=== PATIENT | female | born 1965 ===

== ENCOUNTER 2017-06-17 08:50 | Inpatient (IN) ==
[2017-06-17] MEDS ORDERED: ONDANSETRON 4 MG/2 ML VIAL IV STA (09:17)
[2017-06-17] MEDS ORDERED: METOCLOPRAMIDE 10 MG/2 ML VIAL IV STA (09:17)
[2017-06-17 09:28] LABS: Basophils % 0.4 % (0.0-0.8); Eosinophils # 0.3 10*3/uL (0.0-0.87); Eosinophils % 2.4 % (0.00-10.9); Hematocrit 31.3 VOL% (35.7-47.0); Hemoglobin 10.6 GM/DL (12.0-16.0); Immature Granulocytes % 1.2 %; Immature Granulocytes Absolute 0.13 #; Lymphocytes # 0.8 10*3/uL (1.4-4.0); Lymphocytes % 7.2 % (21.3-54.2); Mean Corpuscular HGB Conc 33.9 GM/DL (32-36); Mean Corpuscular Hemoglobin 33 PG (27-34); Mean Corpuscular Volume 96.9 FL (87-102); Mean Platelet Volume 9.9 FL (9.6-12.0); Monocytes # 0.4 10*3/uL (0.11-0.8); Monocytes % 4.2 % (1.7-12.7); Neutrophils # 8.8 10*3/uL (1.4-7.4); Neutrophils % 84.6 % (38.7-73.9); Platelet Count 124 T/CUMM (130-400); Red Blood Count 3.23 MC/CUMM (3.8-5.5); Red Cell Distribution Width 14.6 % (9.3-17.3); White Blood Count 10.5 T/CUMM (4-12)
[2017-06-17 09:49] LABS: Lactic Acid 1.7 MMOL/L (0.4-2.0)
[2017-06-17 09:51] LABS: Albumin 3.1 G/DL (3.4-5.0); Bilirubin,Total 0.9 MG/DL (0.2-1.0); CKMB % 1.6 %; Calcium 7.3 MG/DL (8.5-10.1); Potassium 2.7 MMOL/L (3.5-5.1); Total Protein 7.3 G/DL (6.4-8.3)
[2017-06-17 09:52] LABS: Troponin I Only 0.176 NG/ML (0.00-0.045)
[2017-06-17] MEDS ORDERED: METOCLOPRAMIDE 10 MG/2 ML VIAL ONE (10:04)
[2017-06-17] MEDS ORDERED: ONDANSETRON 4 MG/2 ML VIAL ONE (10:04)
[2017-06-17 10:38] LABS: Apearance,Urine Slightly Hazy (Clear); Bacteria,Urine Occasional /HPF (Few); Bilirubin,Urine Negative (Negative); Blood, Urine Small mg/dL (Negative); Glucose,Urine (UA) >=500 mg/dL (Negative); Ketones,Urine Negative (Negative); Nitrite,Urine Negative (Negative); Protein,Urine >=500 MG/DL; RBC,Urine 16 /HPF (0-4); Squamous Epithelial Cell,Urine Occasional /HPF (0-10); Urine Color Yellow (Yellow); Urine Specific Gravity 1.013 (1.001-1.035); Urine Urobilinogen < 2.0 EU/DL (0.2-1.0); WBC,Urine 128 /HPF (0-6)
[2017-06-17] MEDS ORDERED: POTASSIUM BICARB EFFERVESCENT 25 MEQ TABLET PO ONE ×2 (10:39→12:04)
[2017-06-17] MEDS ORDERED: hydrALAZINE 20 MG/1 ML VIAL IV STA (12:12)
[2017-06-17] MEDS ORDERED: hydrALAZINE 20 MG/1 ML VIAL ONE (12:22)
[2017-06-17 13:09] LABS: Troponin I Only 0.164 NG/ML (0.00-0.045)
[2017-06-17] MEDS ORDERED: ALBUTEROL 2.5 MG/3 ML NEB RESP TX PRN (15:30)
[2017-06-17] MEDS ORDERED: ONDANSETRON 4 MG/2 ML VIAL IV PRN (15:30)
[2017-06-17] MEDS ORDERED: ACETAMINOPHEN 325 MG TABLET PO PRN (15:30)
[2017-06-17] MEDS: SODIUM CHLORIDE 0.9% 1,000 ML IV SCH (18:04)
[2017-06-17] MEDS: SEVELAMER CARBONATE 800 MG TABLET PO SCH ×2 (18:05→20:31)
[2017-06-17 18:08] LABS: Troponin I Only 0.161 NG/ML (0.00-0.045)
[2017-06-17] MEDS: CARVEDILOL 12.5 MG TABLET PO SCH (20:32)
[2017-06-18 05:53] LABS: Basophils % 0.4 % (0.0-0.8); Eosinophils # 0.2 10*3/uL (0.0-0.87); Eosinophils % 1.6 % (0.00-10.9); Hematocrit 27.2 VOL% (35.7-47.0); Hemoglobin 9.1 GM/DL (12.0-16.0); Immature Granulocytes % 1.4 %; Immature Granulocytes Absolute 0.13 #; Lymphocytes # 1.2 10*3/uL (1.4-4.0); Lymphocytes % 12.5 % (21.3-54.2); Mean Corpuscular HGB Conc 33.5 GM/DL (32-36); Mean Corpuscular Hemoglobin 33 PG (27-34); Mean Corpuscular Volume 97.8 FL (87-102); Mean Platelet Volume 10.1 FL (9.6-12.0); Monocytes # 0.6 10*3/uL (0.11-0.8); Monocytes % 6.5 % (1.7-12.7); Neutrophils # 7.4 10*3/uL (1.4-7.4); Neutrophils % 77.6 % (38.7-73.9); Platelet Count 112 T/CUMM (130-400); Red Blood Count 2.78 MC/CUMM (3.8-5.5); Red Cell Distribution Width 15.1 % (9.3-17.3); White Blood Count 9.6 T/CUMM (4-12)
[2017-06-18 06:42] LABS: Calcium 6.9 MG/DL (8.5-10.1); Free T4 (Free Thyroxine) 1.1 NG/DL (0.76-1.46); Osmolality,Calculated 293.4 MOS/KG (273-304); Potassium 3.1 MMOL/L (3.5-5.1); Risk Ratio 2.21; Thyroid Stimulating Hormone 0.692 uIU/ml (0.358-3.74); VLDL CHOLESTEROL 17.2 MG/DL
[2017-06-18] MEDS: CARVEDILOL 12.5 MG TABLET PO SCH ×2 (08:46→21:15)
[2017-06-18] MEDS: SEVELAMER CARBONATE 800 MG TABLET PO SCH ×5 (08:46→21:15)
[2017-06-18] MEDS: MONTELUKAST 10 MG TABLET PO SCH (08:46)
[2017-06-18] MEDS: POTASSIUM CHLORIDE 20 MEQ TABLET PO PRN ×4 (08:46→17:03)
[2017-06-18] MEDS: SODIUM CHLORIDE 0.9% 1,000 ML IV SCH (11:34)
[2017-06-18] MEDS ORDERED: VANCOMYCIN INJ 1,750 MG in SODIUM CHLORIDE 0.9% 500 ML IV PRN (14:30)
[2017-06-18] MEDS ORDERED: VANCOMYCIN INJ 1,750 MG in SODIUM CHLORIDE 0.9% 500 ML IV ONE (15:00)
[2017-06-19 07:01] LABS: Basophils % 0.4 % (0.0-0.8); Eosinophils # 0.2 10*3/uL (0.0-0.87); Eosinophils % 2.1 % (0.00-10.9); Immature Granulocytes % 1.8 %; Immature Granulocytes Absolute 0.17 #; Lymphocytes # 1.1 10*3/uL (1.4-4.0); Lymphocytes % 11.6 % (21.3-54.2); Mean Corpuscular HGB Conc 33.3 GM/DL (32-36); Mean Corpuscular Hemoglobin 33 PG (27-34); Mean Corpuscular Volume 98.5 FL (87-102); Mean Platelet Volume 10.2 FL (9.6-12.0); Monocytes # 0.6 10*3/uL (0.11-0.8); Monocytes % 6.6 % (1.7-12.7); NRBC # 0.02 10*3/uL; Neutrophils # 7.1 10*3/uL (1.4-7.4); Neutrophils % 77.5 % (38.7-73.9); Platelet Count 105 T/CUMM (130-400); Red Blood Count 2.74 MC/CUMM (3.8-5.5); Red Cell Distribution Width 14.8 % (9.3-17.3); White Blood Count 9.2 T/CUMM (4-12)
[2017-06-19] MEDS: SODIUM CHLORIDE 0.9% 1,000 ML IV SCH (07:17)
[2017-06-19] MEDS: CARVEDILOL 12.5 MG TABLET PO SCH ×2 (08:08→21:15)
[2017-06-19] MEDS: SEVELAMER CARBONATE 800 MG TABLET PO SCH ×4 (08:08→21:15)
[2017-06-19] MEDS: MONTELUKAST 10 MG TABLET PO SCH (08:08)
[2017-06-19] MEDS: POTASSIUM CHLORIDE 20 MEQ TABLET PO SCH (08:37)
[2017-06-19 08:42] LABS: Calcium 7.4 MG/DL (8.5-10.1); Osmolality,Calculated 288.7 MOS/KG (273-304)
[2017-06-19] MEDS: POLYETHYLENE GLYCOL POWDER 17 GM PACK PO SCH (17:07)
[2017-06-20] MEDS: CARVEDILOL 12.5 MG TABLET PO SCH ×2 (09:01→21:07)
[2017-06-20] MEDS: MONTELUKAST 10 MG TABLET PO SCH (09:07)
[2017-06-20] MEDS: SEVELAMER CARBONATE 800 MG TABLET PO SCH ×4 (09:09→21:07)
[2017-06-20] MEDS: POLYETHYLENE GLYCOL POWDER 17 GM PACK PO SCH (09:09)
[2017-06-20] MEDS: POTASSIUM CHLORIDE 20 MEQ TABLET PO SCH (09:09)
[2017-06-20] MEDS ORDERED: VANCOMYCIN INJ 1,750 MG in SODIUM CHLORIDE 0.9% 500 ML IV ONE (13:00)
[2017-06-21] MEDS: MONTELUKAST 10 MG TABLET PO SCH (09:22)
[2017-06-21] MEDS: SEVELAMER CARBONATE 800 MG TABLET PO SCH ×4 (09:22→22:16)
[2017-06-21] MEDS: CARVEDILOL 12.5 MG TABLET PO SCH ×2 (09:22→22:17)
[2017-06-21] MEDS: POTASSIUM CHLORIDE 20 MEQ TABLET PO SCH (09:22)
[2017-06-21] MEDS: POLYETHYLENE GLYCOL POWDER 17 GM PACK PO SCH (09:23)
[2017-06-21 10:47] LABS: Basophils # 0.1 10*3/uL (0.0-0.2); Basophils % 0.5 % (0.0-0.8); Eosinophils # 0.2 10*3/uL (0.0-0.87); Eosinophils % 2.1 % (0.00-10.9); Hematocrit 29.5 VOL% (35.7-47.0); Immature Granulocytes % 2.6 %; Immature Granulocytes Absolute 0.26 #; Lymphocytes % 10.5 % (21.3-54.2); Mean Corpuscular HGB Conc 33.9 GM/DL (32-36); Mean Corpuscular Hemoglobin 33 PG (27-34); Mean Corpuscular Volume 98.3 FL (87-102); Mean Platelet Volume 10.1 FL (9.6-12.0); Monocytes # 0.6 10*3/uL (0.11-0.8); NRBC # 0.02 10*3/uL; Neutrophils # 7.7 10*3/uL (1.4-7.4); Neutrophils % 78.3 % (38.7-73.9); Platelet Count 131 T/CUMM (130-400); Red Cell Distribution Width 14.6 % (9.3-17.3); White Blood Count 9.9 T/CUMM (4-12)
[2017-06-21 11:24] LABS: Albumin 2.7 G/DL (3.4-5.0); Calcium 7.7 MG/DL (8.5-10.1); Osmolality,Calculated 284.1 MOS/KG (273-304); Phosphorous 4.3 MG/DL (2.5-4.9); Potassium 4.2 MMOL/L (3.5-5.1)
[2017-06-22] MEDS: CARVEDILOL 12.5 MG TABLET PO SCH (08:11)
[2017-06-22] MEDS: POLYETHYLENE GLYCOL POWDER 17 GM PACK PO SCH (08:11)
[2017-06-22] MEDS: POTASSIUM CHLORIDE 20 MEQ TABLET PO SCH (08:11)
[2017-06-22] MEDS: SEVELAMER CARBONATE 800 MG TABLET PO SCH ×2 (08:11→14:06)
[2017-06-22] MEDS: MONTELUKAST 10 MG TABLET PO SCH (08:11)
[2017-06-22 11:51] VITALS: BP 153/81
== END 2017-06-22 14:09 | disposition home or self-care (01) | DRG 391 ==
LOC: EDBD → EDUNIT# → N.ED 08:50 → SUATTDRO 14:29 → N.EDINP 14:29 → N.5E 15:07
PROVIDERS: ADMIT Family Medicine; ATTEND Internal Medicine Cardiovascular Disease

== ENCOUNTER 2017-07-01 01:58 | Inpatient (IN) ==
[2017-07-01] MEDS ORDERED: ONDANSETRON 4 MG/2 ML VIAL IV PRN (04:36)
[2017-07-01 07:01] LABS: Basophils # 0.1 10*3/uL (0.0-0.2); Basophils % 0.6 % (0.0-0.8); Eosinophils # 0.3 10*3/uL (0.0-0.87); Eosinophils % 2.9 % (0.00-10.9); Hematocrit 28.4 VOL% (35.7-47.0); Hemoglobin 9.4 GM/DL (12.0-16.0); Immature Granulocytes % 0.9 %; Immature Granulocytes Absolute 0.08 #; Lymphocytes # 1.1 10*3/uL (1.4-4.0); Lymphocytes % 12.5 % (21.3-54.2); Mean Corpuscular HGB Conc 33.1 GM/DL (32-36); Mean Corpuscular Hemoglobin 33 PG (27-34); Mean Corpuscular Volume 100.4 FL (87-102); Mean Platelet Volume 10.1 FL (9.6-12.0); Monocytes # 0.5 10*3/uL (0.11-0.8); Monocytes % 6.2 % (1.7-12.7); Neutrophils # 6.7 10*3/uL (1.4-7.4); Neutrophils % 76.9 % (38.7-73.9); Platelet Count 113 T/CUMM (130-400); Red Blood Count 2.83 MC/CUMM (3.8-5.5); Red Cell Distribution Width 15.4 % (9.3-17.3); White Blood Count 8.7 T/CUMM (4-12)
[2017-07-01 07:23] LABS: Albumin 2.7 G/DL (3.4-5.0); Bilirubin,Total 0.9 MG/DL (0.2-1.0); Calcium 7.7 MG/DL (8.5-10.1); Osmolality,Calculated 304.7 MOS/KG (273-304); Potassium 3.9 MMOL/L (3.5-5.1); Total Protein 5.9 G/DL (6.4-8.3)
[2017-07-01] MEDS: HEPARIN 5,000 UNIT/1 ML VIAL SUBCUT SCH ×3 (09:52→21:04)
[2017-07-01] MEDS: CARVEDILOL 12.5 MG TABLET PO SCH ×2 (09:53→17:37)
[2017-07-01] MEDS: MONTELUKAST 10 MG TABLET PO SCH (09:53)
[2017-07-01] MEDS: SEVELAMER CARBONATE 800 MG TABLET PO SCH ×4 (09:53→20:48)
[2017-07-01] MEDS: PANTOPRAZOLE 40 MG TABLET PO SCH (09:53)
[2017-07-01 16:46] LABS: PT Patient Result 10.7 SECS; Partial Thromboplastin Time 27.6 SECS (0-40)
[2017-07-01 19:53] LABS: Apearance,Urine CLOUDY (Clear); Bacteria,Urine Moderate /HPF (Few); Bilirubin,Urine Negative (Negative); Blood, Urine Moderate mg/dL (Negative); Glucose,Urine (UA) >=500 mg/dL (Negative); Ketones,Urine Negative (Negative); Nitrite,Urine Negative (Negative); Protein,Urine >=500 MG/DL; RBC,Urine 107 /HPF (0-4); Squamous Epithelial Cell,Urine Many /HPF (0-10); Urine Color Amber (Yellow); Urine Specific Gravity 1.026 (1.001-1.035); Urine Urobilinogen < 2.0 EU/DL (0.2-1.0); WBC,Urine 61 /HPF (0-6)
[2017-07-02] MEDS ORDERED: VANCOMYCIN INJ 1,500 MG in SODIUM CHLORIDE 0.9% 500 ML IV PRN (03:59)
[2017-07-02] MEDS: HEPARIN 5,000 UNIT/1 ML VIAL SUBCUT SCH ×2 (05:20→14:25)
[2017-07-02 08:01] LABS: Basophils % 0.5 % (0.0-0.8); Eosinophils # 0.2 10*3/uL (0.0-0.87); Eosinophils % 3.2 % (0.00-10.9); Hematocrit 27.8 VOL% (35.7-47.0); Hemoglobin 9.3 GM/DL (12.0-16.0); Immature Granulocytes % 0.8 %; Immature Granulocytes Absolute 0.05 #; Lymphocytes # 1.1 10*3/uL (1.4-4.0); Lymphocytes % 16.8 % (21.3-54.2); Mean Corpuscular HGB Conc 33.5 GM/DL (32-36); Mean Corpuscular Hemoglobin 34 PG (27-34); Mean Corpuscular Volume 100.4 FL (87-102); Mean Platelet Volume 10.2 FL (9.6-12.0); Monocytes # 0.5 10*3/uL (0.11-0.8); Monocytes % 7.1 % (1.7-12.7); Neutrophils # 4.7 10*3/uL (1.4-7.4); Neutrophils % 71.6 % (38.7-73.9); Platelet Count 111 T/CUMM (130-400); Red Blood Count 2.77 MC/CUMM (3.8-5.5); Red Cell Distribution Width 15.2 % (9.3-17.3); White Blood Count 6.6 T/CUMM (4-12)
[2017-07-02 08:41] LABS: Calcium 7.8 MG/DL (8.5-10.1); Osmolality,Calculated 305.8 MOS/KG (273-304); Potassium 3.9 MMOL/L (3.5-5.1)
[2017-07-02] MEDS: CARVEDILOL 12.5 MG TABLET PO SCH (09:05)
[2017-07-02] MEDS: MONTELUKAST 10 MG TABLET PO SCH (09:05)
[2017-07-02] MEDS: PANTOPRAZOLE 40 MG TABLET PO SCH (09:05)
[2017-07-02] MEDS: SEVELAMER CARBONATE 800 MG TABLET PO SCH ×2 (09:05→12:11)
[2017-07-02 16:09] VITALS: BP 152/79
== END 2017-07-02 16:38 | disposition home or self-care (01) | DRG 919 ==
LOC: N.5E 04:07 → SUATTDRO 04:07
PROVIDERS: ADMIT Internal Medicine; ATTEND Internal Medicine

== ENCOUNTER 2018-06-26 17:04 | Inpatient (IN) ==
[2018-06-26] MEDS ORDERED: CEFEPIME 2,000 MG in SODIUM CHLORIDE 0.9% 100 ML IV STA (19:04)
[2018-06-26] MEDS ORDERED: VANCOMYCIN INJ 1,500 MG in SODIUM CHLORIDE 0.9% 250 ML IV STA (19:04)
[2018-06-26] MEDS ORDERED: INSULIN REGULAR 100 UNIT/ML IV STA (19:43)
[2018-06-26 20:21] LABS: Lactic Acid 1.1 MMOL/L (0.4-2.0)
[2018-06-26] MEDS ORDERED: GLUCAGON 1 MG VIAL IM PRN (20:43)
[2018-06-26] MEDS: INSULIN LISPRO 100 UNIT/ML SUBCUT SCH (22:12)
[2018-06-27 05:54] LABS: Basophils % 0.3 % (0.0-0.8); Eosinophils # 0.2 10*3/uL (0.0-0.87); Eosinophils % 1.6 % (0.00-10.9); Hemoglobin 10.4 GM/DL (12.0-16.0); Immature Granulocytes % 1.3 %; Immature Granulocytes Absolute 0.18 #; Lymphocytes # 1.5 10*3/uL (1.4-4.0); Mean Corpuscular HGB Conc 30.6 GM/DL (32-36); Mean Corpuscular Hemoglobin 31 PG (27-34); Mean Corpuscular Volume 101.5 FL (87-102); Mean Platelet Volume 10.3 FL (9.6-12.0); Neutrophils # 10.8 10*3/uL (1.4-7.4); Neutrophils % 78.8 % (38.7-73.9); Platelet Count 150 T/CUMM (130-400); Red Blood Count 3.35 MC/CUMM (3.8-5.5); Red Cell Distribution Width 14.2 % (9.3-17.3); White Blood Count 13.7 T/CUMM (4-12)
[2018-06-27 06:10] LABS: Calcium 7.8 MG/DL (8.5-10.1); Osmolality,Calculated 301.1 MOS/KG (273-304); Potassium 4.2 MMOL/L (3.5-5.1)
[2018-06-27 06:20] LABS: Folate 7.9 NG/ML (5.4-24.0)
[2018-06-27] MEDS: CARVEDILOL 6.25 MG TABLET PO SCH ×2 (08:30→16:43)
[2018-06-27] MEDS: CALCIUM ACETATE 667 MG CAPSULE PO SCH ×3 (08:30→16:43)
[2018-06-27] MEDS: INSULIN LISPRO 100 UNIT/ML SUBCUT SCH ×4 (08:31→20:14)
[2018-06-27] MEDS: CEFTAROLINE 200 MG in SODIUM CHLORIDE 0.9% 100 ML IV SCH ×3 (11:36→22:55)
[2018-06-27] MEDS: ALBUTEROL 2.5 MG/3 ML NEB RESP TX PRN ×2 (12:18→18:20)
[2018-06-28] MEDS: ALBUTEROL 2.5 MG/3 ML NEB RESP TX PRN (07:10)
[2018-06-28] MEDS: CALCIUM ACETATE 667 MG CAPSULE PO SCH ×4 (09:12→20:38)
[2018-06-28] MEDS: CARVEDILOL 6.25 MG TABLET PO SCH (09:12)
[2018-06-28] MEDS: INSULIN LISPRO 100 UNIT/ML SUBCUT SCH ×4 (09:13→20:43)
[2018-06-28] MEDS: CEFTAROLINE 200 MG in SODIUM CHLORIDE 0.9% 100 ML IV SCH ×2 (12:01→23:36)
[2018-06-28] MEDS: MULTIVITAMIN (BEROCCA) TABLET PO SCH (17:29)
[2018-06-28] MEDS: glipiZIDE 5 MG TABLET PO SCH (17:29)
[2018-06-28] MEDS: MONTELUKAST 10 MG TABLET PO SCH (17:29)
[2018-06-28] MEDS: CARVEDILOL 3.125 MG TABLET PO SCH ×2 (17:29→20:38)
[2018-06-28] MEDS: ACETAMINOPHEN 325 MG TABLET PO PRN (17:29)
[2018-06-28] MEDS: GENTAMICIN 0.1% CREAM 15 GM TUBE TOP SCH (17:30)
[2018-06-29] MEDS: glipiZIDE 5 MG TABLET PO SCH ×2 (06:42→17:07)
[2018-06-29] MEDS: DOCUSATE SODIUM 100 MG CAPSULE PO PRN (06:42)
[2018-06-29 08:01] LABS: Basophils # 0.1 10*3/uL (0.0-0.2); Basophils % 0.4 % (0.0-0.8); Eosinophils # 0.2 10*3/uL (0.0-0.87); Eosinophils % 1.6 % (0.00-10.9); Hematocrit 30.3 VOL% (35.7-47.0); Hemoglobin 9.7 GM/DL (12.0-16.0); Immature Granulocytes % 1.4 %; Immature Granulocytes Absolute 0.21 #; Lymphocytes # 0.9 10*3/uL (1.4-4.0); Lymphocytes % 6.2 % (21.3-54.2); Mean Corpuscular Hemoglobin 32 PG (27-34); Mean Platelet Volume 10.4 FL (9.6-12.0); Monocytes # 0.7 10*3/uL (0.11-0.8); Monocytes % 4.7 % (1.7-12.7); Neutrophils # 12.7 10*3/uL (1.4-7.4); Neutrophils % 85.7 % (38.7-73.9); Platelet Count 173 T/CUMM (130-400); Red Cell Distribution Width 14.1 % (9.3-17.3); White Blood Count 14.8 T/CUMM (4-12)
[2018-06-29 08:32] LABS: Calcium 8.8 MG/DL (8.5-10.1); Osmolality,Calculated 298.2 MOS/KG (273-304); Potassium 3.8 MMOL/L (3.5-5.1)
[2018-06-29] MEDS: MONTELUKAST 10 MG TABLET PO SCH (08:35)
[2018-06-29] MEDS: ACETAMINOPHEN 325 MG TABLET PO PRN (08:36)
[2018-06-29] MEDS: CALCIUM ACETATE 667 MG CAPSULE PO SCH ×4 (08:36→21:43)
[2018-06-29] MEDS: CARVEDILOL 3.125 MG TABLET PO SCH ×2 (08:36→21:45)
[2018-06-29] MEDS: INSULIN LISPRO 100 UNIT/ML SUBCUT SCH ×4 (08:36→21:45)
[2018-06-29] MEDS: MULTIVITAMIN (BEROCCA) TABLET PO SCH (08:36)
[2018-06-29] MEDS: GENTAMICIN 0.1% CREAM 15 GM TUBE TOP SCH (08:37)
[2018-06-29] MEDS: CLINDAMYCIN INJ 600 MG in PREMIX 1 EACH IV SCH ×2 (10:13→17:07)
[2018-06-29] MEDS: HEPARIN 5,000 UNIT/1 ML VIAL SUBCUT SCH ×2 (10:13→21:44)
[2018-06-29] MEDS: CEFTAROLINE 200 MG in SODIUM CHLORIDE 0.9% 100 ML IV SCH (12:45)
[2018-06-30] MEDS: CEFTAROLINE 200 MG in SODIUM CHLORIDE 0.9% 100 ML IV SCH ×3 (00:10→23:23)
[2018-06-30] MEDS: ONDANSETRON 4 MG/2 ML VIAL IV PRN ×2 (00:11→22:07)
[2018-06-30] MEDS: CLINDAMYCIN INJ 600 MG in PREMIX 1 EACH IV SCH ×3 (00:11→19:06)
[2018-06-30 06:22] LABS: Basophils # 0.1 10*3/uL (0.0-0.2); Basophils % 0.4 % (0.0-0.8); Eosinophils # 0.1 10*3/uL (0.0-0.87); Hematocrit 31.5 VOL% (35.7-47.0); Hemoglobin 9.8 GM/DL (12.0-16.0); Immature Granulocytes % 1.5 %; Immature Granulocytes Absolute 0.21 #; Lymphocytes % 7.1 % (21.3-54.2); Mean Corpuscular HGB Conc 31.1 GM/DL (32-36); Mean Corpuscular Hemoglobin 32 PG (27-34); Mean Corpuscular Volume 101.9 FL (87-102); Mean Platelet Volume 10.3 FL (9.6-12.0); Monocytes # 0.9 10*3/uL (0.11-0.8); Monocytes % 6.3 % (1.7-12.7); NRBC # 0.03 10*3/uL; Neutrophils # 11.8 10*3/uL (1.4-7.4); Neutrophils % 83.7 % (38.7-73.9); Platelet Count 188 T/CUMM (130-400); Red Blood Count 3.09 MC/CUMM (3.8-5.5); Red Cell Distribution Width 14.1 % (9.3-17.3)
[2018-06-30 06:40] LABS: Calcium 9.2 MG/DL (8.5-10.1); Osmolality,Calculated 289.2 MOS/KG (273-304); Potassium 3.9 MMOL/L (3.5-5.1)
[2018-06-30] MEDS: CARVEDILOL 3.125 MG TABLET PO SCH ×2 (08:37→20:26)
[2018-06-30] MEDS: MONTELUKAST 10 MG TABLET PO SCH (08:37)
[2018-06-30] MEDS: MULTIVITAMIN (BEROCCA) TABLET PO SCH (08:37)
[2018-06-30] MEDS: glipiZIDE 5 MG TABLET PO SCH ×2 (08:37→17:45)
[2018-06-30] MEDS: CALCIUM ACETATE 667 MG CAPSULE PO SCH ×4 (08:37→20:26)
[2018-06-30] MEDS: GENTAMICIN 0.1% CREAM 15 GM TUBE TOP SCH (08:39)
[2018-06-30] MEDS: INSULIN LISPRO 100 UNIT/ML SUBCUT SCH ×4 (08:39→20:54)
[2018-06-30] MEDS: HEPARIN 5,000 UNIT/1 ML VIAL SUBCUT SCH ×2 (12:17→22:09)
[2018-07-01] MEDS: DEXTROSE 50% 25 GM/50 ML VIAL IV PRN ×2 (00:44→15:15)
[2018-07-01] MEDS: CLINDAMYCIN INJ 600 MG in PREMIX 1 EACH IV SCH ×2 (01:07→08:16)
[2018-07-01 05:30] LABS: Basophils % 0.2 % (0.0-0.8); Eosinophils # 0.1 10*3/uL (0.0-0.87); Eosinophils % 0.6 % (0.00-10.9); Hematocrit 31.9 VOL% (35.7-47.0); Hemoglobin 9.6 GM/DL (12.0-16.0); Immature Granulocytes Absolute 0.27 #; Lymphocytes # 0.7 10*3/uL (1.4-4.0); Lymphocytes % 5.2 % (21.3-54.2); Mean Corpuscular HGB Conc 30.1 GM/DL (32-36); Mean Corpuscular Hemoglobin 31 PG (27-34); Mean Corpuscular Volume 102.9 FL (87-102); Mean Platelet Volume 10.3 FL (9.6-12.0); Monocytes # 0.8 10*3/uL (0.11-0.8); Monocytes % 6.1 % (1.7-12.7); NRBC # 0.07 10*3/uL; Neutrophils # 11.7 10*3/uL (1.4-7.4); Neutrophils % 85.9 % (38.7-73.9); Platelet Count 179 T/CUMM (130-400); Red Cell Distribution Width 14.3 % (9.3-17.3); White Blood Count 13.6 T/CUMM (4-12)
[2018-07-01] MEDS: ONDANSETRON 4 MG/2 ML VIAL IV PRN (05:34)
[2018-07-01] MEDS ORDERED: FAMOTIDINE 20 MG/2 ML VIAL IV ONE (09:51)
[2018-07-01] MEDS: ALBUTEROL 2.5 MG/3 ML NEB RESP TX PRN (13:00)
[2018-07-01] MEDS ORDERED: LIDOCAINE 1% 20 ML VIAL ONE (13:38)
[2018-07-01] MEDS ORDERED: DEXTROSE 50% 25 GM/50 ML VIAL IV ONE (14:05)
[2018-07-01] MEDS: glipiZIDE 5 MG TABLET PO SCH ×2 (14:06→17:47)
[2018-07-01] MEDS: CARVEDILOL 3.125 MG TABLET PO SCH ×2 (14:07→20:48)
[2018-07-01] MEDS: CALCIUM ACETATE 667 MG CAPSULE PO SCH ×3 (14:07→20:48)
[2018-07-01] MEDS: INSULIN LISPRO 100 UNIT/ML SUBCUT SCH ×3 (14:07→20:48)
[2018-07-01] MEDS: HEPARIN 5,000 UNIT/1 ML VIAL SUBCUT SCH ×2 (14:08→21:47)
[2018-07-01] MEDS ORDERED: VANCOMYCIN INJ 1,500 MG in SODIUM CHLORIDE 0.9% 500 ML IV PRN (15:00)
[2018-07-01] MEDS ORDERED: ePHEDrine 50 MG/ML AMP ONE (15:18)
[2018-07-01] MEDS ORDERED: MIDAZOLAM 2 MG/2 ML VIAL ONE (15:18)
[2018-07-01] MEDS ORDERED: VANCOMYCIN INJ 2,000 MG in SODIUM CHLORIDE 0.9% 500 ML IV ONE (16:00)
[2018-07-01] MEDS: CEFTAROLINE 200 MG in SODIUM CHLORIDE 0.9% 100 ML IV SCH (17:48)
[2018-07-01] MEDS: MONTELUKAST 10 MG TABLET PO SCH (18:02)
[2018-07-01] MEDS: MULTIVITAMIN (BEROCCA) TABLET PO SCH (18:02)
[2018-07-01] MEDS: PIPERACILLIN/TAZOBACTAM 3.375 MG in SODIUM CHLORIDE 0.9% 100 ML IV SCH ×2 (18:03→18:09)
[2018-07-01] MEDS: GENTAMICIN 0.1% CREAM 15 GM TUBE TOP SCH (18:43)
[2018-07-01] MEDS: DOCUSATE SODIUM 100 MG CAPSULE PO PRN (20:48)
[2018-07-02 05:42] LABS: Basophils # 0.1 10*3/uL (0.0-0.2); Basophils % 0.5 % (0.0-0.8); Eosinophils # 0.1 10*3/uL (0.0-0.87); Eosinophils % 0.7 % (0.00-10.9); Hemoglobin 9.4 GM/DL (12.0-16.0); Immature Granulocytes % 2.2 %; Lymphocytes # 0.9 10*3/uL (1.4-4.0); Lymphocytes % 6.3 % (21.3-54.2); Mean Corpuscular HGB Conc 30.3 GM/DL (32-36); Mean Corpuscular Hemoglobin 31 PG (27-34); Mean Corpuscular Volume 102.6 FL (87-102); Mean Platelet Volume 10.3 FL (9.6-12.0); Monocytes # 0.7 10*3/uL (0.11-0.8); Monocytes % 5.3 % (1.7-12.7); NRBC # 0.18 10*3/uL; Neutrophils # 11.8 10*3/uL (1.4-7.4); Platelet Count 217 T/CUMM (130-400); Red Blood Count 3.02 MC/CUMM (3.8-5.5); Red Cell Distribution Width 14.5 % (9.3-17.3); White Blood Count 13.9 T/CUMM (4-12)
[2018-07-02] MEDS: PIPERACILLIN/TAZOBACTAM 3.375 MG in SODIUM CHLORIDE 0.9% 100 ML IV SCH ×2 (06:13→17:51)
[2018-07-02 06:16] LABS: Calcium 8.6 MG/DL (8.5-10.1); Osmolality,Calculated 280.5 MOS/KG (273-304); Potassium 3.7 MMOL/L (3.5-5.1)
[2018-07-02] MEDS: HEPARIN 5,000 UNIT/1 ML VIAL SUBCUT SCH ×3 (08:26→21:16)
[2018-07-02] MEDS: MONTELUKAST 10 MG TABLET PO SCH (08:26)
[2018-07-02] MEDS: MULTIVITAMIN (BEROCCA) TABLET PO SCH (08:26)
[2018-07-02] MEDS: CALCIUM ACETATE 667 MG CAPSULE PO SCH ×4 (08:26→21:15)
[2018-07-02] MEDS: INSULIN LISPRO 100 UNIT/ML SUBCUT SCH ×4 (08:27→22:52)
[2018-07-02] MEDS: glipiZIDE 5 MG TABLET PO SCH ×2 (08:27→16:49)
[2018-07-02] MEDS: GENTAMICIN 0.1% CREAM 15 GM TUBE TOP SCH (09:33)
[2018-07-02] MEDS: ALBUTEROL 2.5 MG/3 ML NEB RESP TX PRN (22:45)
[2018-07-03] MEDS: ALBUTEROL/IPRATROPIUM 3 ML NEB RESP TX SCH ×4 (01:53→19:10)
[2018-07-03] MEDS: PIPERACILLIN/TAZOBACTAM 3.375 MG in SODIUM CHLORIDE 0.9% 100 ML IV SCH ×2 (05:36→17:17)
[2018-07-03] MEDS: INSULIN LISPRO 100 UNIT/ML SUBCUT SCH ×4 (07:30→22:03)
[2018-07-03] MEDS: glipiZIDE 5 MG TABLET PO SCH ×2 (07:55→17:05)
[2018-07-03] MEDS: CALCIUM ACETATE 667 MG CAPSULE PO SCH ×4 (07:55→21:28)
[2018-07-03] MEDS ORDERED: LIDOCAINE 1% 20 ML VIAL ONE (09:10)
[2018-07-03] MEDS: HEPARIN 5,000 UNIT/1 ML VIAL SUBCUT SCH ×2 (10:00→21:28)
[2018-07-03] MEDS ORDERED: PROPOFOL 200 MG/20 ML VIAL IV ONE (11:08)
[2018-07-03] MEDS ORDERED: CALCIUM CHLORIDE 1,000 MG/10 ML VIAL IV ONE (11:08)
[2018-07-03] MEDS ORDERED: SEVOFLURANE 1 UNIT/15 MINUTE INH ONE (11:08)
[2018-07-03] MEDS ORDERED: MIDAZOLAM 2 MG/2 ML VIAL ONE (11:09)
[2018-07-03] MEDS ORDERED: EPINEPHrine 1 MG/ML VIAL ONE (11:09)
[2018-07-03] MEDS ORDERED: fentaNYL 100 MCG/2 ML VIAL ONE (11:09)
[2018-07-03] MEDS ORDERED: SODIUM CHLORIDE 0.9% 100 ML IV ONE (11:10)
[2018-07-03] MEDS ORDERED: ePHEDrine 50 MG/ML AMP ONE (11:10)
[2018-07-03] MEDS ORDERED: KETAMINE 500 MG/10 ML VIAL ONE (11:10)
[2018-07-03] MEDS ORDERED: ONDANSETRON 4 MG/2 ML VIAL IV PRN (11:22)
[2018-07-03] MEDS ORDERED: HYDROmorphone 2 MG/1 ML VIAL IV PRN (11:22)
[2018-07-03] MEDS ORDERED: HYDROmorphone 2 MG/1 ML VIAL ONE (11:23)
[2018-07-03] MEDS ORDERED: ONDANSETRON 4 MG/2 ML VIAL ONE (11:23)
[2018-07-03] MEDS: GENTAMICIN 0.1% CREAM 15 GM TUBE TOP SCH (12:08)
[2018-07-03] MEDS: MONTELUKAST 10 MG TABLET PO SCH (12:24)
[2018-07-03] MEDS: MULTIVITAMIN (BEROCCA) TABLET PO SCH (12:24)
[2018-07-03] MEDS: ACETAMINOPHEN 325 MG TABLET PO PRN ×2 (17:17→23:17)
[2018-07-04] MEDS: ALBUTEROL/IPRATROPIUM 3 ML NEB RESP TX SCH ×4 (00:27→19:49)
[2018-07-04] MEDS: ACETAMINOPHEN 325 MG TABLET PO PRN (06:04)
[2018-07-04] MEDS: PIPERACILLIN/TAZOBACTAM 3.375 MG in SODIUM CHLORIDE 0.9% 100 ML IV SCH ×2 (06:05→17:38)
[2018-07-04] MEDS: glipiZIDE 5 MG TABLET PO SCH ×2 (09:18→17:37)
[2018-07-04] MEDS: CALCIUM ACETATE 667 MG CAPSULE PO SCH ×4 (09:18→20:41)
[2018-07-04] MEDS: MULTIVITAMIN (BEROCCA) TABLET PO SCH (09:18)
[2018-07-04] MEDS: MONTELUKAST 10 MG TABLET PO SCH (09:18)
[2018-07-04] MEDS: INSULIN LISPRO 100 UNIT/ML SUBCUT SCH ×4 (09:20→20:42)
[2018-07-04] MEDS: HEPARIN 5,000 UNIT/1 ML VIAL SUBCUT SCH ×2 (11:16→21:24)
[2018-07-04] MEDS: GENTAMICIN 0.1% CREAM 15 GM TUBE TOP SCH (17:39)
[2018-07-04] MEDS: AMPICILLIN/SULBACTAM 1,500 MG in SODIUM CHLORIDE 0.9% 100 ML IV SCH (20:41)
[2018-07-05] MEDS: ALBUTEROL/IPRATROPIUM 3 ML NEB RESP TX SCH ×4 (02:05→19:46)
[2018-07-05] MEDS: INSULIN LISPRO 100 UNIT/ML SUBCUT SCH ×4 (07:36→22:05)
[2018-07-05] MEDS: glipiZIDE 5 MG TABLET PO SCH ×3 (07:37→17:11)
[2018-07-05] MEDS: AMPICILLIN/SULBACTAM 1,500 MG in SODIUM CHLORIDE 0.9% 100 ML IV SCH ×2 (10:18→21:27)
[2018-07-05] MEDS ORDERED: LIDOCAINE 1% 20 ML VIAL ONE (11:27)
[2018-07-05] MEDS ORDERED: BUPIVACAINE MPF 0.25% 30 ML VIAL ONE (12:11)
[2018-07-05] MEDS ORDERED: KETAMINE 500 MG/10 ML VIAL ONE (12:57)
[2018-07-05] MEDS: CALCIUM ACETATE 667 MG CAPSULE PO SCH ×3 (15:01→21:26)
[2018-07-05] MEDS: HEPARIN 5,000 UNIT/1 ML VIAL SUBCUT SCH ×2 (16:12→22:05)
[2018-07-05] MEDS: MONTELUKAST 10 MG TABLET PO SCH (17:10)
[2018-07-05] MEDS: MULTIVITAMIN (BEROCCA) TABLET PO SCH (17:10)
[2018-07-06] MEDS: ALBUTEROL/IPRATROPIUM 3 ML NEB RESP TX SCH ×4 (01:36→19:50)
[2018-07-06] MEDS: INSULIN LISPRO 100 UNIT/ML SUBCUT SCH ×4 (07:55→21:01)
[2018-07-06] MEDS: AMPICILLIN/SULBACTAM 1,500 MG in SODIUM CHLORIDE 0.9% 100 ML IV SCH ×2 (09:03→21:00)
[2018-07-06] MEDS: HEPARIN 5,000 UNIT/1 ML VIAL SUBCUT SCH ×2 (09:04→21:00)
[2018-07-06] MEDS: ACETAMINOPHEN 325 MG TABLET PO PRN ×2 (09:04→17:32)
[2018-07-06] MEDS: MONTELUKAST 10 MG TABLET PO SCH (09:04)
[2018-07-06] MEDS: MULTIVITAMIN (BEROCCA) TABLET PO SCH (09:04)
[2018-07-06] MEDS: CALCIUM ACETATE 667 MG CAPSULE PO SCH ×4 (09:04→21:00)
[2018-07-06] MEDS: glipiZIDE 5 MG TABLET PO SCH ×2 (09:05→17:30)
[2018-07-07] MEDS: ALBUTEROL/IPRATROPIUM 3 ML NEB RESP TX SCH ×4 (01:47→19:05)
[2018-07-07] MEDS: glipiZIDE 5 MG TABLET PO SCH ×2 (08:39→16:46)
[2018-07-07] MEDS: MONTELUKAST 10 MG TABLET PO SCH (08:39)
[2018-07-07] MEDS: MULTIVITAMIN (BEROCCA) TABLET PO SCH (08:39)
[2018-07-07] MEDS: CALCIUM ACETATE 667 MG CAPSULE PO SCH ×4 (08:39→20:46)
[2018-07-07] MEDS: HEPARIN 5,000 UNIT/1 ML VIAL SUBCUT SCH ×3 (08:39→21:01)
[2018-07-07] MEDS: AMPICILLIN/SULBACTAM 1,500 MG in SODIUM CHLORIDE 0.9% 100 ML IV SCH ×2 (08:40→20:45)
[2018-07-07] MEDS: INSULIN LISPRO 100 UNIT/ML SUBCUT SCH ×4 (08:48→20:46)
[2018-07-08] MEDS: ALBUTEROL/IPRATROPIUM 3 ML NEB RESP TX SCH ×4 (00:33→19:05)
[2018-07-08] MEDS: MONTELUKAST 10 MG TABLET PO SCH (08:43)
[2018-07-08] MEDS: MULTIVITAMIN (BEROCCA) TABLET PO SCH (08:43)
[2018-07-08] MEDS: CALCIUM ACETATE 667 MG CAPSULE PO SCH ×4 (08:43→22:09)
[2018-07-08] MEDS: glipiZIDE 5 MG TABLET PO SCH ×2 (08:43→17:36)
[2018-07-08] MEDS: INSULIN LISPRO 100 UNIT/ML SUBCUT SCH ×3 (08:44→17:36)
[2018-07-08] MEDS: AMPICILLIN/SULBACTAM 1,500 MG in SODIUM CHLORIDE 0.9% 100 ML IV SCH ×2 (08:45→22:02)
[2018-07-08] MEDS: HEPARIN 5,000 UNIT/1 ML VIAL SUBCUT SCH ×2 (11:33→22:09)
[2018-07-08] MEDS: ACETAMINOPHEN 325 MG TABLET PO PRN (11:33)
[2018-07-08] MEDS ORDERED: FUROSEMIDE 40 MG/4 ML VIAL IV ONE ×2 (14:32→17:30)
[2018-07-09] MEDS: ALBUTEROL/IPRATROPIUM 3 ML NEB RESP TX SCH ×4 (00:10→19:05)
[2018-07-09] MEDS: INSULIN LISPRO 100 UNIT/ML SUBCUT SCH ×5 (03:58→23:07)
[2018-07-09 06:06] LABS: Basophils # 0.1 10*3/uL (0.0-0.2); Basophils % 0.4 % (0.0-0.8); Eosinophils # 0.2 10*3/uL (0.0-0.87); Eosinophils % 1.4 % (0.00-10.9); Hematocrit 33.9 VOL% (35.7-47.0); Hemoglobin 10.9 GM/DL (12.0-16.0); Immature Granulocytes % 6.2 %; Immature Granulocytes Absolute 0.85 #; Lymphocytes # 1.1 10*3/uL (1.4-4.0); Lymphocytes % 7.7 % (21.3-54.2); Mean Corpuscular HGB Conc 32.2 GM/DL (32-36); Mean Corpuscular Hemoglobin 31 PG (27-34); Mean Corpuscular Volume 97.7 FL (87-102); Mean Platelet Volume 9.1 FL (9.6-12.0); Monocytes # 0.7 10*3/uL (0.11-0.8); Monocytes % 5.2 % (1.7-12.7); Neutrophils # 10.8 10*3/uL (1.4-7.4); Neutrophils % 79.1 % (38.7-73.9); Platelet Count 227 T/CUMM (130-400); Red Blood Count 3.47 MC/CUMM (3.8-5.5); Red Cell Distribution Width 14.4 % (9.3-17.3); White Blood Count 13.7 T/CUMM (4-12)
[2018-07-09 06:33] LABS: Lymphocytes 6 % (20-55); Platelet Estimate Adequate; Polychromasia Few; Segmented Neutrophils 93 % (50-85); Total Cells Counted 100
[2018-07-09 06:37] LABS: Osmolality,Calculated 283.2 MOS/KG (273-304); Potassium 3.3 MMOL/L (3.5-5.1)
[2018-07-09] MEDS: MULTIVITAMIN (BEROCCA) TABLET PO SCH (09:01)
[2018-07-09] MEDS: glipiZIDE 5 MG TABLET PO SCH ×2 (09:01→17:30)
[2018-07-09] MEDS: CALCIUM ACETATE 667 MG CAPSULE PO SCH ×4 (09:01→21:27)
[2018-07-09] MEDS: MONTELUKAST 10 MG TABLET PO SCH (09:01)
[2018-07-09] MEDS: AMPICILLIN/SULBACTAM 1,500 MG in SODIUM CHLORIDE 0.9% 100 ML IV SCH ×2 (09:02→21:27)
[2018-07-09] MEDS ORDERED: GLUCAGON 1 MG VIAL IM PRN (09:07)
[2018-07-09] MEDS ORDERED: DEXTROSE 50% 25 GM/50 ML VIAL IV PRN (09:07)
[2018-07-09] MEDS: HEPARIN 5,000 UNIT/1 ML VIAL SUBCUT SCH ×2 (12:40→21:26)
[2018-07-09] MEDS ORDERED: CALCIUM CARBONATE CHEW 500 MG TABLET PO PRN (15:28)
[2018-07-10] MEDS: ALBUTEROL/IPRATROPIUM 3 ML NEB RESP TX SCH ×4 (00:40→19:32)
[2018-07-10 05:47] LABS: Basophils # 0.1 10*3/uL (0.0-0.2); Basophils % 0.6 % (0.0-0.8); Eosinophils # 0.2 10*3/uL (0.0-0.87); Eosinophils % 1.2 % (0.00-10.9); Immature Granulocytes % 5.8 %; Lymphocytes % 6.9 % (21.3-54.2); Mean Corpuscular HGB Conc 31.4 GM/DL (32-36); Mean Corpuscular Hemoglobin 31 PG (27-34); Mean Corpuscular Volume 98.9 FL (87-102); Mean Platelet Volume 9.3 FL (9.6-12.0); Monocytes # 0.6 10*3/uL (0.11-0.8); Monocytes % 4.7 % (1.7-12.7); Neutrophils # 11.1 10*3/uL (1.4-7.4); Neutrophils % 80.8 % (38.7-73.9); Platelet Count 206 T/CUMM (130-400); Red Blood Count 3.54 MC/CUMM (3.8-5.5); Red Cell Distribution Width 14.5 % (9.3-17.3); White Blood Count 13.7 T/CUMM (4-12)
[2018-07-10 06:04] LABS: Calcium 10.6 MG/DL (8.5-10.1); Osmolality,Calculated 289.8 MOS/KG (273-304); Potassium 3.3 MMOL/L (3.5-5.1)
[2018-07-10 06:19] LABS: Band Neutrophils 2 % (0-10); Lymphocytes 6 % (20-55); Segmented Neutrophils 87 % (50-85); Total Cells Counted 100
[2018-07-10 06:20] LABS: Platelet Estimate Normal
[2018-07-10 06:21] LABS: Hypochromasia Slight
[2018-07-10] MEDS: INSULIN LISPRO 100 UNIT/ML SUBCUT SCH ×4 (08:35→23:10)
[2018-07-10] MEDS: glipiZIDE 5 MG TABLET PO SCH ×2 (08:35→17:43)
[2018-07-10] MEDS: CALCIUM ACETATE 667 MG CAPSULE PO SCH ×4 (08:35→21:51)
[2018-07-10] MEDS: MULTIVITAMIN (BEROCCA) TABLET PO SCH (08:35)
[2018-07-10] MEDS: MONTELUKAST 10 MG TABLET PO SCH (08:36)
[2018-07-10] MEDS: HEPARIN 5,000 UNIT/1 ML VIAL SUBCUT SCH ×2 (09:31→21:51)
[2018-07-10] MEDS: AMPICILLIN/SULBACTAM 1,500 MG in SODIUM CHLORIDE 0.9% 100 ML IV SCH ×2 (09:33→23:10)
[2018-07-10] MEDS ORDERED: LIDOCAINE 1% 20 ML VIAL ONE (11:39)
[2018-07-10] MEDS ORDERED: ONDANSETRON 4 MG/2 ML VIAL ONE (12:56)
[2018-07-10] MEDS ORDERED: KETAMINE 500 MG/10 ML VIAL ONE (12:56)
[2018-07-11] MEDS: ALBUTEROL/IPRATROPIUM 3 ML NEB RESP TX SCH ×3 (00:49→13:19)
[2018-07-11 05:23] LABS: Basophils # 0.1 10*3/uL (0.0-0.2); Basophils % 0.5 % (0.0-0.8); Eosinophils # 0.2 10*3/uL (0.0-0.87); Eosinophils % 1.4 % (0.00-10.9); Hematocrit 36.2 VOL% (35.7-47.0); Hemoglobin 11.1 GM/DL (12.0-16.0); Immature Granulocytes % 4.9 %; Immature Granulocytes Absolute 0.66 #; Lymphocytes % 7.7 % (21.3-54.2); Mean Corpuscular HGB Conc 30.7 GM/DL (32-36); Mean Corpuscular Hemoglobin 31 PG (27-34); Mean Corpuscular Volume 99.5 FL (87-102); Mean Platelet Volume 9.7 FL (9.6-12.0); Monocytes # 0.7 10*3/uL (0.11-0.8); Neutrophils # 10.8 10*3/uL (1.4-7.4); Neutrophils % 80.5 % (38.7-73.9); Platelet Count 200 T/CUMM (130-400); Red Blood Count 3.64 MC/CUMM (3.8-5.5); Red Cell Distribution Width 14.5 % (9.3-17.3); White Blood Count 13.4 T/CUMM (4-12)
[2018-07-11 05:37] LABS: Calcium 10.2 MG/DL (8.5-10.1); Osmolality,Calculated 294.8 MOS/KG (273-304); Potassium 3.7 MMOL/L (3.5-5.1)
[2018-07-11 06:07] LABS: Atypical Lymphocytes Few; Hypochromasia 1+; Lymphocytes 9 % (20-55); Segmented Neutrophils 87 % (50-85); Total Cells Counted 100
[2018-07-11 06:08] LABS: Macrocytosis 1+
[2018-07-11 06:09] LABS: Platelet Estimate Normal
[2018-07-11] MEDS: INSULIN LISPRO 100 UNIT/ML SUBCUT SCH ×2 (08:59→12:09)
[2018-07-11] MEDS: CALCIUM ACETATE 667 MG CAPSULE PO SCH ×2 (09:00→12:09)
[2018-07-11] MEDS: glipiZIDE 5 MG TABLET PO SCH (09:00)
[2018-07-11] MEDS: AMPICILLIN/SULBACTAM 1,500 MG in SODIUM CHLORIDE 0.9% 100 ML IV SCH (09:00)
[2018-07-11] MEDS: HEPARIN 5,000 UNIT/1 ML VIAL SUBCUT SCH (09:36)
[2018-07-11] MEDS: MONTELUKAST 10 MG TABLET PO SCH (09:52)
[2018-07-11] MEDS: MULTIVITAMIN (BEROCCA) TABLET PO SCH (09:53)
[2018-07-11 16:07] VITALS: BP 165/88
== END 2018-07-11 16:23 | DRG 616 ==
LOC: EDBD → EDUNIT# → N.ED 17:04 → N.EDINP 20:18 → SUATTDRO 20:18 → N.5E 20:40
PROVIDERS: ADMIT Internal Medicine; ATTEND Internal Medicine

== ENCOUNTER 2018-09-24 07:02 | Inpatient (IN) ==
[2018-09-23 15:43] LABS: Basophils # 0.1 10*3/uL (0.0-0.2); Basophils % 0.4 % (0.0-0.8); Eosinophils # 0.1 10*3/uL (0.0-0.87); Eosinophils % 0.8 % (0.00-10.9); Hematocrit 24.2 VOL% (35.7-47.0); Hemoglobin 7.6 GM/DL (12.0-16.0); Lymphocytes # 1.8 10*3/uL (1.4-4.0); Mean Corpuscular HGB Conc 31.4 GM/DL (32-36); Mean Corpuscular Hemoglobin 30 PG (27-34); Mean Corpuscular Volume 96.8 FL (87-102); Mean Platelet Volume 9.1 FL (9.6-12.0); Monocytes # 0.7 10*3/uL (0.11-0.8); Monocytes % 4.8 % (1.7-12.7); Neutrophils # 11.8 10*3/uL (1.4-7.4); Platelet Count 288 T/CUMM (130-400); Red Cell Distribution Width 15.5 % (9.3-17.3); White Blood Count 15.1 T/CUMM (4-12)
[2018-09-23 16:22] LABS: Calcium 8.6 MG/DL (8.5-10.1); Osmolality,Calculated 283.5 MOS/KG (273-304); Potassium 4.8 MMOL/L (3.5-5.1)
[2018-09-23 17:50] LABS: Eosinophils 1 % (0-10); Lymphocytes 9 % (20-55); Nucleated Red Blood Cells 1 (0-5); Platelet Estimate Normal; Polychromasia Few; Segmented Neutrophils 84 % (50-85); Total Cells Counted 100
[2018-09-23 17:51] LABS: Anisocytosis Slight; Hypochromasia 1+
[~2018-09-24 07:02] MED LIST: ceFAZolin 1,000 MG in SYRINGE 1 EACH IV ONE
[2018-09-24] MEDS ORDERED: PANTOPRAZOLE 40 MG TABLET PO ONE ×2 (08:01→08:04)
[2018-09-24] MEDS ORDERED: ceFAZolin 1,000 MG VIAL ONE (08:04)
[2018-09-24 08:13] LABS: Hematocrit 23.7 VOL% (35.7-47.0); Hemoglobin 7.4 GM/DL (12.0-16.0)
[2018-09-24] MEDS ORDERED: ALBUTEROL/IPRATROPIUM 3 ML NEB RESP TX STA (08:26)
[2018-09-24] MEDS ORDERED: SODIUM CHLORIDE 0.9% 250 ML IV SCH (08:30)
[2018-09-24] MEDS ORDERED: LIDOCAINE 1%/EPI INJ 20 ML VIAL ONE (11:05)
[2018-09-24] MEDS ORDERED: LIDOCAINE 1% 20 ML VIAL ONE (11:05)
[2018-09-24] MEDS ORDERED: VANCOMYCIN INJ 1,000 MG in SODIUM CHLORIDE 0.9% 250 ML IV SCH (13:00)
[2018-09-24] MEDS ORDERED: SEVOFLURANE 1 UNIT/15 MINUTE INH ONE (13:01)
[2018-09-24] MEDS ORDERED: MIDAZOLAM 2 MG/2 ML VIAL ONE (13:01)
[2018-09-24] MEDS ORDERED: fentaNYL 100 MCG/2 ML VIAL ONE (13:01)
[2018-09-24] MEDS ORDERED: PROPOFOL 200 MG/20 ML VIAL IV ONE (13:01)
[2018-09-24] MEDS ORDERED: ONDANSETRON 4 MG/2 ML VIAL ONE (13:01)
[2018-09-24] MEDS ORDERED: ePHEDrine 50 MG/ML AMP ONE (13:02)
[2018-09-24] MEDS ORDERED: ROCURONIUM 100 MG/10 ML VIAL IV ONE (13:02)
[2018-09-24] MEDS ORDERED: VANCOMYCIN INJ 1,500 MG in SODIUM CHLORIDE 0.9% 500 ML IV PRN (14:02)
[2018-09-24] MEDS ORDERED: GLUCAGON 1 MG VIAL IM PRN (14:03)
[2018-09-24] MEDS ORDERED: PROMETHAZINE 25 MG/1 ML VIAL IM PRN (14:03)
[2018-09-24] MEDS ORDERED: ALBUTEROL/IPRATROPIUM 3 ML NEB RESP TX PRN (14:03)
[2018-09-24] MEDS ORDERED: ONDANSETRON 4 MG/2 ML VIAL IV PRN (14:03)
[2018-09-24] MEDS ORDERED: ALBUTEROL 2.5 MG/3 ML NEB RESP TX PRN (14:03)
[2018-09-24] MEDS ORDERED: HYDROmorphone 2 MG/1 ML VIAL IV PRN (14:03)
[2018-09-24] MEDS ORDERED: DEXTROSE 50% 25 GM/50 ML VIAL IV PRN (14:03)
[2018-09-24 14:24] LABS: Basophils # 0.1 10*3/uL (0.0-0.2); Basophils % 0.7 % (0.0-0.8); Eosinophils # 0.1 10*3/uL (0.0-0.87); Eosinophils % 0.8 % (0.00-10.9); Hematocrit 25.3 VOL% (35.7-47.0); Hemoglobin 7.9 GM/DL (12.0-16.0); Immature Granulocytes % 7.4 %; Immature Granulocytes Absolute 1.02 #; Lymphocytes # 1.6 10*3/uL (1.4-4.0); Lymphocytes % 11.7 % (21.3-54.2); Mean Corpuscular HGB Conc 31.2 GM/DL (32-36); Mean Corpuscular Hemoglobin 30 PG (27-34); Mean Corpuscular Volume 96.2 FL (87-102); Mean Platelet Volume 9.1 FL (9.6-12.0); Monocytes # 0.8 10*3/uL (0.11-0.8); Monocytes % 5.5 % (1.7-12.7); NRBC # 0.31 10*3/uL; Neutrophils # 10.2 10*3/uL (1.4-7.4); Neutrophils % 73.9 % (38.7-73.9); Platelet Count 287 T/CUMM (130-400); Red Blood Count 2.63 MC/CUMM (3.8-5.5); Red Cell Distribution Width 15.7 % (9.3-17.3); White Blood Count 13.8 T/CUMM (4-12)
[2018-09-24] MEDS: PIPERACILLIN/TAZOBACTAM 3,375 MG in SODIUM CHLORIDE 0.9% 100 ML IV SCH (14:27)
[2018-09-24] MEDS: ALBUTEROL/IPRATROPIUM 3 ML NEB RESP TX SCH ×2 (14:30→19:09)
[2018-09-24 14:47] LABS: Calcium 8.5 MG/DL (8.5-10.1); Osmolality,Calculated 282.5 MOS/KG (273-304); Potassium 5.1 MMOL/L (3.5-5.1)
[2018-09-24] MEDS ORDERED: VANCOMYCIN INJ 2,000 MG in SODIUM CHLORIDE 0.9% 500 ML IV ONE (15:00)
[2018-09-24] MEDS ORDERED: EPOETIN ALFA 10,000 UNIT/1 ML VIAL IV PRN (16:16)
[2018-09-24 19:58] LABS: Anisocytosis 1+; Band Neutrophils 2 % (0-10); Hypochromasia Slight; Lymphocytes 6 % (20-55); Metamyelocytes 1 %; Nucleated Red Blood Cells 2 (0-5); Segmented Neutrophils 87 % (50-85); Total Cells Counted 100
[2018-09-24 19:59] LABS: Microcytosis Slight; Platelet Estimate Normal; Polychromasia Slight
[2018-09-24] MEDS: INSULIN REGULAR 100 UNIT/ML SUBCUT SCH ×2 (22:04→22:05)
[2018-09-25] MEDS: ALBUTEROL/IPRATROPIUM 3 ML NEB RESP TX SCH ×4 (01:02→19:43)
[2018-09-25] MEDS: PIPERACILLIN/TAZOBACTAM 3,375 MG in SODIUM CHLORIDE 0.9% 100 ML IV SCH ×3 (03:26→15:06)
[2018-09-25 06:08] LABS: Basophils # 0.1 10*3/uL (0.0-0.2); Basophils % 0.6 % (0.0-0.8); Eosinophils # 0.1 10*3/uL (0.0-0.87); Hematocrit 22.2 VOL% (35.7-47.0); Hemoglobin 6.8 GM/DL (12.0-16.0); Immature Granulocytes Absolute 0.92 #; Lymphocytes # 1.5 10*3/uL (1.4-4.0); Lymphocytes % 12.8 % (21.3-54.2); Mean Corpuscular HGB Conc 30.6 GM/DL (32-36); Mean Corpuscular Hemoglobin 30 PG (27-34); Mean Corpuscular Volume 96.5 FL (87-102); Mean Platelet Volume 9.2 FL (9.6-12.0); Monocytes # 0.6 10*3/uL (0.11-0.8); Monocytes % 5.6 % (1.7-12.7); NRBC # 0.39 10*3/uL; Neutrophils # 8.3 10*3/uL (1.4-7.4); Platelet Count 247 T/CUMM (130-400); White Blood Count 11.5 T/CUMM (4-12)
[2018-09-25 06:20] LABS: Osmolality,Calculated 286.5 MOS/KG (273-304); Potassium 5.4 MMOL/L (3.5-5.1)
[2018-09-25 07:11] LABS: Band Neutrophils 2 % (0-10); Lymphocytes 11 % (20-55); Platelet Estimate Adequate; Segmented Neutrophils 84 % (50-85); Total Cells Counted 100
[2018-09-25 07:12] LABS: Hypochromasia 1+; Microcytosis Slight; Ovalocytes Slight
[2018-09-25] MEDS ORDERED: SODIUM CHLORIDE 0.9% 1,000 ML IV PRN (07:55)
[2018-09-25] MEDS: INSULIN REGULAR 100 UNIT/ML SUBCUT SCH ×4 (08:27→21:05)
[2018-09-25] MEDS: SODIUM HYPOCHLORITE 0.25% IRRIG 473 ML BOTTLE TOP SCH (08:57)
[2018-09-25] MEDS: MONTELUKAST 10 MG TABLET PO SCH (08:57)
[2018-09-25] MEDS ORDERED: VANCOMYCIN INJ 750 MG in SODIUM CHLORIDE 0.9% 250 ML IV PRN (12:00)
[2018-09-25] MEDS ORDERED: VANCOMYCIN INJ 750 MG in SODIUM CHLORIDE 0.9% 250 ML IV ONE (19:30)
[2018-09-26] MEDS: ALBUTEROL/IPRATROPIUM 3 ML NEB RESP TX SCH ×4 (00:39→20:04)
[2018-09-26] MEDS: PIPERACILLIN/TAZOBACTAM 3,375 MG in SODIUM CHLORIDE 0.9% 100 ML IV SCH ×2 (02:31→23:15)
[2018-09-26 07:19] LABS: Basophils # 0.1 10*3/uL (0.0-0.2); Basophils % 0.6 % (0.0-0.8); Eosinophils # 0.2 10*3/uL (0.0-0.87); Eosinophils % 1.8 % (0.00-10.9); Hematocrit 30.5 VOL% (35.7-47.0); Immature Granulocytes % 10.1 %; Immature Granulocytes Absolute 1.29 #; Lymphocytes # 1.1 10*3/uL (1.4-4.0); Lymphocytes % 8.3 % (21.3-54.2); Mean Corpuscular HGB Conc 30.8 GM/DL (32-36); Mean Corpuscular Hemoglobin 29 PG (27-34); Mean Corpuscular Volume 94.4 FL (87-102); Mean Platelet Volume 9.1 FL (9.6-12.0); Monocytes # 0.7 10*3/uL (0.11-0.8); Monocytes % 5.5 % (1.7-12.7); NRBC # 0.39 10*3/uL; Neutrophils # 9.4 10*3/uL (1.4-7.4); Neutrophils % 73.7 % (38.7-73.9); Platelet Count 255 T/CUMM (130-400); Red Cell Distribution Width 17.1 % (9.3-17.3); White Blood Count 12.7 T/CUMM (4-12)
[2018-09-26 07:31] LABS: Hemoglobin 9.4 GM/DL (12.0-16.0); Red Blood Count 3.23 MC/CUMM (3.8-5.5)
[2018-09-26 07:40] LABS: Band Neutrophils 2 % (0-10); Eosinophils 3 % (0-10); Lymphocytes 12 % (20-55); Nucleated Red Blood Cells 3 (0-5); Segmented Neutrophils 79 % (50-85); Total Cells Counted 100
[2018-09-26 07:41] LABS: Hypochromasia 1+; Microcytosis Slight; Ovalocytes Slight; Platelet Estimate Adequate
[2018-09-26 07:43] LABS: Calcium 8.3 MG/DL (8.5-10.1); Osmolality,Calculated 282.1 MOS/KG (273-304); Potassium 4.1 MMOL/L (3.5-5.1)
[2018-09-26] MEDS: INSULIN REGULAR 100 UNIT/ML SUBCUT SCH ×4 (09:15→22:52)
[2018-09-26] MEDS: SODIUM HYPOCHLORITE 0.25% IRRIG 473 ML BOTTLE TOP SCH (09:15)
[2018-09-26] MEDS: MONTELUKAST 10 MG TABLET PO SCH (09:16)
[2018-09-27] MEDS: ALBUTEROL/IPRATROPIUM 3 ML NEB RESP TX SCH ×3 (01:00→15:03)
[2018-09-27] MEDS: PIPERACILLIN/TAZOBACTAM 3,375 MG in SODIUM CHLORIDE 0.9% 100 ML IV SCH (04:13)
[2018-09-27 05:00] LABS: Basophils # 0.1 10*3/uL (0.0-0.2); Basophils % 0.6 % (0.0-0.8); Eosinophils # 0.3 10*3/uL (0.0-0.87); Eosinophils % 2.1 % (0.00-10.9); Hematocrit 30.8 VOL% (35.7-47.0); Hemoglobin 9.9 GM/DL (12.0-16.0); Immature Granulocytes % 8.8 %; Lymphocytes # 1.3 10*3/uL (1.4-4.0); Lymphocytes % 10.3 % (21.3-54.2); Mean Corpuscular HGB Conc 32.1 GM/DL (32-36); Mean Corpuscular Hemoglobin 30 PG (27-34); Mean Corpuscular Volume 93.9 FL (87-102); Monocytes # 0.7 10*3/uL (0.11-0.8); Monocytes % 5.6 % (1.7-12.7); NRBC # 0.12 10*3/uL; Neutrophils # 9.1 10*3/uL (1.4-7.4); Neutrophils % 72.6 % (38.7-73.9); Platelet Count 235 T/CUMM (130-400); Red Blood Count 3.28 MC/CUMM (3.8-5.5); White Blood Count 12.5 T/CUMM (4-12)
[2018-09-27 05:29] LABS: Band Neutrophils 1 % (0-10); Eosinophils 4 % (0-10); Hypochromasia 1+; Lymphocytes 10 % (20-55); Nucleated Red Blood Cells 2 (0-5); Polychromasia Slight; Segmented Neutrophils 75 % (50-85); Total Cells Counted 100
[2018-09-27 05:30] LABS: Anisocytosis 1+; Microcytosis 1+; Platelet Estimate Normal
[2018-09-27] MEDS: INSULIN REGULAR 100 UNIT/ML SUBCUT SCH ×2 (08:21→13:47)
[2018-09-27] MEDS: MONTELUKAST 10 MG TABLET PO SCH (08:21)
[2018-09-27] MEDS: SODIUM HYPOCHLORITE 0.25% IRRIG 473 ML BOTTLE TOP SCH (08:21)
[2018-09-27] MEDS ORDERED: VANCOMYCIN INJ 750 MG in SODIUM CHLORIDE 0.9% 250 ML IV ONE (13:00)
[2018-09-27 16:19] VITALS: BP 146/74
== END 2018-09-27 17:44 | disposition home health service (06) | DRG 901 ==
LOC: N.OR 07:02 → N.SDSINP 07:05 → N.5E 12:25
PROVIDERS: ADMIT Surgery; ATTEND Surgery

== ENCOUNTER 2018-10-09 06:26 | Inpatient (IN) ==
[2018-10-07 17:01] LABS: Basophils # 0.1 10*3/uL (0.0-0.2); Basophils % 0.6 % (0.0-0.8); Eosinophils # 0.2 10*3/uL (0.0-0.87); Eosinophils % 2.1 % (0.00-10.9); Hematocrit 33.4 VOL% (35.7-47.0); Hemoglobin 10.3 GM/DL (12.0-16.0); Immature Granulocytes % 0.7 %; Immature Granulocytes Absolute 0.07 #; Lymphocytes # 1.2 10*3/uL (1.4-4.0); Lymphocytes % 11.6 % (21.3-54.2); Mean Corpuscular HGB Conc 30.8 GM/DL (32-36); Mean Corpuscular Hemoglobin 30 PG (27-34); Mean Platelet Volume 9.3 FL (9.6-12.0); Monocytes # 0.8 10*3/uL (0.11-0.8); Monocytes % 7.8 % (1.7-12.7); NRBC # 0.04 10*3/uL; Neutrophils # 7.7 10*3/uL (1.4-7.4); Neutrophils % 77.2 % (38.7-73.9); Platelet Count 243 T/CUMM (130-400); Red Blood Count 3.48 MC/CUMM (3.8-5.5); Red Cell Distribution Width 16.4 % (9.3-17.3)
[2018-10-07 17:27] LABS: Calcium 8.8 MG/DL (8.5-10.1); Osmolality,Calculated 287.5 MOS/KG (273-304); Potassium 3.3 MMOL/L (3.5-5.1)
[~2018-10-09 06:26] MED LIST changes: +ceFAZolin 1,000 MG VIAL ONE
[2018-10-09 06:59] LABS: Hematocrit 32.7 VOL% (35.7-47.0)
[2018-10-09] MEDS ORDERED: ALBUTEROL/IPRATROPIUM 3 ML NEB RESP TX STA (07:14)
[2018-10-09] MEDS: SODIUM CHLORIDE 0.9% 250 ML IV SCH ×2 (08:10→10:55)
[2018-10-09] MEDS ORDERED: LIDOCAINE 1% 20 ML VIAL ONE (09:55)
[2018-10-09] MEDS: HYDROmorphone 2 MG/1 ML VIAL IV PRN ×2 (11:20→11:30)
[2018-10-09] MEDS ORDERED: HYDROmorphone 2 MG/1 ML VIAL ONE (11:23)
[2018-10-09] MEDS ORDERED: ONDANSETRON 4 MG/2 ML VIAL ONE ×2 (11:24→11:28)
[2018-10-09] MEDS ORDERED: PHENYLEPHRINE 1 MG/10 ML SYRINGE IV ONE (11:28)
[2018-10-09] MEDS ORDERED: MIDAZOLAM 2 MG/2 ML VIAL ONE (11:28)
[2018-10-09] MEDS ORDERED: SODIUM CHLORIDE 0.9% 250 ML IV ONE (11:28)
[2018-10-09] MEDS ORDERED: fentaNYL 100 MCG/2 ML VIAL ONE (11:28)
[2018-10-09] MEDS ORDERED: PROPOFOL 200 MG/20 ML VIAL IV ONE (11:28)
[2018-10-09] MEDS ORDERED: ePHEDrine 50 MG/ML AMP ONE (11:28)
[2018-10-09] MEDS ORDERED: ONDANSETRON 4 MG/2 ML VIAL IV PRN ×2 (11:36→12:23)
[2018-10-09] MEDS ORDERED: GLUCAGON 1 MG VIAL IM PRN (12:23)
[2018-10-09] MEDS ORDERED: ALBUTEROL 2.5 MG/3 ML NEB RESP TX PRN (12:23)
[2018-10-09] MEDS ORDERED: PROMETHAZINE 25 MG/1 ML VIAL IM PRN (12:23)
[2018-10-09] MEDS ORDERED: DEXTROSE 50% 25 GM/50 ML SYRINGE IV PRN (12:23)
[2018-10-09] MEDS ORDERED: VANCOMYCIN INJ 750 MG in SODIUM CHLORIDE 0.9% 250 ML IV PRN (12:23)
[2018-10-09] MEDS ORDERED: HYDROmorphone 2 MG/1 ML VIAL IV PRN (12:23)
[2018-10-09] MEDS: INSULIN REGULAR 100 UNIT/ML SUBCUT SCH ×3 (12:45→22:05)
[2018-10-09] MEDS: ALBUTEROL/IPRATROPIUM 3 ML NEB RESP TX SCH ×2 (13:20→19:00)
[2018-10-09] MEDS: PIPERACILLIN/TAZOBACTAM 3,375 MG in SODIUM CHLORIDE 0.9% 100 ML IV SCH (13:55)
[2018-10-09] MEDS: NON-FORMULARY MEDICATION (Ferric Citrate [Auryxia] 210 MG) PO SCH ×2 (15:50→22:05)
[2018-10-09] MEDS ORDERED: VANCOMYCIN INJ 750 MG in SODIUM CHLORIDE 0.9% 250 ML IV ONE (18:00)
[2018-10-10] MEDS: ALBUTEROL/IPRATROPIUM 3 ML NEB RESP TX SCH ×4 (00:15→20:12)
[2018-10-10] MEDS: PIPERACILLIN/TAZOBACTAM 3,375 MG in SODIUM CHLORIDE 0.9% 100 ML IV SCH ×2 (01:30→12:52)
[2018-10-10 05:13] LABS: Basophils # 0.1 10*3/uL (0.0-0.2); Basophils % 0.6 % (0.0-0.8); Eosinophils # 0.2 10*3/uL (0.0-0.87); Eosinophils % 1.8 % (0.00-10.9); Hematocrit 29.9 VOL% (35.7-47.0); Hemoglobin 8.9 GM/DL (12.0-16.0); Immature Granulocytes % 2.1 %; Immature Granulocytes Absolute 0.18 #; Lymphocytes # 1.1 10*3/uL (1.4-4.0); Lymphocytes % 13.2 % (21.3-54.2); Mean Corpuscular HGB Conc 29.8 GM/DL (32-36); Mean Corpuscular Hemoglobin 29 PG (27-34); Mean Corpuscular Volume 97.7 FL (87-102); Mean Platelet Volume 9.4 FL (9.6-12.0); Monocytes # 0.8 10*3/uL (0.11-0.8); Monocytes % 9.3 % (1.7-12.7); NRBC # 0.04 10*3/uL; Neutrophils # 6.2 10*3/uL (1.4-7.4); Platelet Count 219 T/CUMM (130-400); Red Blood Count 3.06 MC/CUMM (3.8-5.5); Red Cell Distribution Width 16.9 % (9.3-17.3); White Blood Count 8.5 T/CUMM (4-12)
[2018-10-10 05:26] LABS: Calcium 8.2 MG/DL (8.5-10.1); Osmolality,Calculated 287.5 MOS/KG (273-304); Potassium 3.1 MMOL/L (3.5-5.1)
[2018-10-10] MEDS: INSULIN REGULAR 100 UNIT/ML SUBCUT SCH ×4 (08:09→21:16)
[2018-10-10] MEDS: NON-FORMULARY MEDICATION (Ferric Citrate [Auryxia] 210 MG) PO SCH ×3 (09:07→21:17)
[2018-10-10] MEDS: MONTELUKAST 10 MG TABLET PO SCH (09:07)
[2018-10-10] MEDS ORDERED: VANCOMYCIN INJ 750 MG in SODIUM CHLORIDE 0.9% 250 ML IV ONE (18:00)
[2018-10-11] MEDS: ALBUTEROL/IPRATROPIUM 3 ML NEB RESP TX SCH ×4 (00:03→19:31)
[2018-10-11] MEDS: PIPERACILLIN/TAZOBACTAM 3,375 MG in SODIUM CHLORIDE 0.9% 100 ML IV SCH ×2 (01:33→12:20)
[2018-10-11] MEDS: NON-FORMULARY MEDICATION (Ferric Citrate [Auryxia] 210 MG) PO SCH ×3 (08:51→20:55)
[2018-10-11] MEDS ORDERED: SODIUM HYPOCHLORITE 0.25% IRRIG 473 ML BOTTLE ONE (08:55)
[2018-10-11] MEDS: INSULIN REGULAR 100 UNIT/ML SUBCUT SCH ×4 (09:23→21:46)
[2018-10-11] MEDS: MONTELUKAST 10 MG TABLET PO SCH (09:23)
[2018-10-11] MEDS: SODIUM HYPOCHLORITE 0.25% IRR 1 APPLIC in IV BAG 1 EACH IRRIG SCH ×2 (12:16→12:17)
[2018-10-12] MEDS: ALBUTEROL/IPRATROPIUM 3 ML NEB RESP TX SCH ×4 (00:32→20:15)
[2018-10-12] MEDS: PIPERACILLIN/TAZOBACTAM 3,375 MG in SODIUM CHLORIDE 0.9% 100 ML IV SCH ×2 (01:14→14:45)
[2018-10-12] MEDS ORDERED: SODIUM HYPOCHLORITE 0.25% IRRIG 473 ML BOTTLE ONE (09:30)
[2018-10-12] MEDS: INSULIN REGULAR 100 UNIT/ML SUBCUT SCH ×4 (10:35→20:46)
[2018-10-12] MEDS: NON-FORMULARY MEDICATION (Ferric Citrate [Auryxia] 210 MG) PO SCH ×3 (10:36→22:33)
[2018-10-12] MEDS: MONTELUKAST 10 MG TABLET PO SCH (10:37)
[2018-10-12] MEDS ORDERED: VANCOMYCIN INJ 750 MG in SODIUM CHLORIDE 0.9% 250 ML IV ONE (17:00)
[2018-10-13] MEDS: ALBUTEROL/IPRATROPIUM 3 ML NEB RESP TX SCH ×4 (00:10→19:35)
[2018-10-13] MEDS: PIPERACILLIN/TAZOBACTAM 3,375 MG in SODIUM CHLORIDE 0.9% 100 ML IV SCH ×2 (01:42→14:01)
[2018-10-13] MEDS ORDERED: SODIUM HYPOCHLORITE 0.25% IRRIG 473 ML BOTTLE ONE (08:34)
[2018-10-13] MEDS: NON-FORMULARY MEDICATION (Ferric Citrate [Auryxia] 210 MG) PO SCH ×3 (08:37→20:32)
[2018-10-13] MEDS: INSULIN REGULAR 100 UNIT/ML SUBCUT SCH ×4 (10:23→21:42)
[2018-10-13] MEDS: MONTELUKAST 10 MG TABLET PO SCH (10:23)
[2018-10-13] MEDS: SODIUM HYPOCHLORITE 0.25% IRR 1 APPLIC in IV BAG 1 EACH IRRIG SCH (14:10)
[2018-10-14] MEDS: ALBUTEROL/IPRATROPIUM 3 ML NEB RESP TX SCH ×4 (00:31→19:26)
[2018-10-14] MEDS: PIPERACILLIN/TAZOBACTAM 3,375 MG in SODIUM CHLORIDE 0.9% 100 ML IV SCH ×2 (02:14→13:57)
[2018-10-14] MEDS: INSULIN REGULAR 100 UNIT/ML SUBCUT SCH ×4 (08:42→20:56)
[2018-10-14] MEDS: NON-FORMULARY MEDICATION (Ferric Citrate [Auryxia] 210 MG) PO SCH ×3 (09:13→20:53)
[2018-10-14] MEDS: MONTELUKAST 10 MG TABLET PO SCH (09:14)
[2018-10-14] MEDS: SODIUM HYPOCHLORITE 0.25% IRR 1 APPLIC in IV BAG 1 EACH IRRIG SCH ×2 (13:07→14:43)
[2018-10-15] MEDS: ALBUTEROL/IPRATROPIUM 3 ML NEB RESP TX SCH ×4 (01:33→18:15)
[2018-10-15] MEDS: PIPERACILLIN/TAZOBACTAM 3,375 MG in SODIUM CHLORIDE 0.9% 100 ML IV SCH ×2 (02:11→14:20)
[2018-10-15] MEDS: INSULIN REGULAR 100 UNIT/ML SUBCUT SCH ×4 (09:06→20:40)
[2018-10-15] MEDS: MONTELUKAST 10 MG TABLET PO SCH (09:08)
[2018-10-15] MEDS: NON-FORMULARY MEDICATION (Ferric Citrate [Auryxia] 210 MG) PO SCH ×3 (09:10→20:37)
[2018-10-15] MEDS: HEPARIN 5,000 UNIT/1 ML VIAL SUBCUT SCH (16:41)
[2018-10-15] MEDS ORDERED: VANCOMYCIN INJ 750 MG in SODIUM CHLORIDE 0.9% 250 ML IV ONE (18:00)
[2018-10-16] MEDS: ALBUTEROL/IPRATROPIUM 3 ML NEB RESP TX SCH ×4 (01:19→19:39)
[2018-10-16] MEDS: HEPARIN 5,000 UNIT/1 ML VIAL SUBCUT SCH ×3 (02:35→18:10)
[2018-10-16] MEDS: PIPERACILLIN/TAZOBACTAM 3,375 MG in SODIUM CHLORIDE 0.9% 100 ML IV SCH ×2 (02:40→13:53)
[2018-10-16] MEDS: INSULIN REGULAR 100 UNIT/ML SUBCUT SCH ×4 (09:32→21:24)
[2018-10-16] MEDS: NON-FORMULARY MEDICATION (Ferric Citrate [Auryxia] 210 MG) PO SCH ×3 (09:32→21:25)
[2018-10-16] MEDS: MONTELUKAST 10 MG TABLET PO SCH (09:33)
[2018-10-17] MEDS ORDERED: VANCOMYCIN INJ 750 MG in SODIUM CHLORIDE 0.9% 250 ML IV PRN (00:42)
[2018-10-17] MEDS: HEPARIN 5,000 UNIT/1 ML VIAL SUBCUT SCH ×3 (01:24→17:39)
[2018-10-17] MEDS: ALBUTEROL/IPRATROPIUM 3 ML NEB RESP TX SCH ×4 (01:38→19:49)
[2018-10-17 04:51] LABS: Basophils # 0.1 10*3/uL (0.0-0.2); Basophils % 0.8 % (0.0-0.8); Eosinophils # 0.3 10*3/uL (0.0-0.87); Eosinophils % 3.2 % (0.00-10.9); Hematocrit 28.2 VOL% (35.7-47.0); Hemoglobin 8.6 GM/DL (12.0-16.0); Immature Granulocytes % 7.5 %; Lymphocytes # 1.2 10*3/uL (1.4-4.0); Lymphocytes % 10.8 % (21.3-54.2); Mean Corpuscular HGB Conc 30.5 GM/DL (32-36); Mean Corpuscular Hemoglobin 29 PG (27-34); Mean Corpuscular Volume 95.6 FL (87-102); Mean Platelet Volume 10.1 FL (9.6-12.0); Monocytes # 0.6 10*3/uL (0.11-0.8); NRBC # 0.22 10*3/uL; Neutrophils # 7.6 10*3/uL (1.4-7.4); Neutrophils % 71.7 % (38.7-73.9); Platelet Count 206 T/CUMM (130-400); Red Blood Count 2.95 MC/CUMM (3.8-5.5); Red Cell Distribution Width 16.9 % (9.3-17.3); White Blood Count 10.7 T/CUMM (4-12)
[2018-10-17 05:31] LABS: Band Neutrophils 4 % (0-10); Eosinophils 3 % (0-10); Lymphocytes 10 % (20-55); Nucleated Red Blood Cells 3 (0-5); Platelet Estimate Normal; Segmented Neutrophils 75 % (50-85); Total Cells Counted 100
[2018-10-17] MEDS ORDERED: VANCOMYCIN INJ 500 MG in SODIUM CHLORIDE 0.9% 100 ML IV PRN (08:30)
[2018-10-17] MEDS: NON-FORMULARY MEDICATION (Ferric Citrate [Auryxia] 210 MG) PO SCH ×3 (08:38→21:13)
[2018-10-17] MEDS: SODIUM HYPOCHLORITE 0.25% IRRIG 473 ML BOTTLE TOP SCH (08:38)
[2018-10-17] MEDS: MONTELUKAST 10 MG TABLET PO SCH (08:39)
[2018-10-17] MEDS: INSULIN REGULAR 100 UNIT/ML SUBCUT SCH ×4 (08:39→21:12)
[2018-10-17] MEDS ORDERED: VANCOMYCIN INJ 500 MG in SODIUM CHLORIDE 0.9% 100 ML IV ONE (18:00)
[2018-10-18] MEDS: HEPARIN 5,000 UNIT/1 ML VIAL SUBCUT SCH ×3 (01:21→17:01)
[2018-10-18] MEDS: ALBUTEROL/IPRATROPIUM 3 ML NEB RESP TX SCH ×4 (03:31→19:36)
[2018-10-18] MEDS: INSULIN REGULAR 100 UNIT/ML SUBCUT SCH ×4 (07:31→21:37)
[2018-10-18] MEDS: NON-FORMULARY MEDICATION (Ferric Citrate [Auryxia] 210 MG) PO SCH ×3 (09:01→21:37)
[2018-10-18] MEDS: SODIUM HYPOCHLORITE 0.25% IRRIG 473 ML BOTTLE TOP SCH (09:01)
[2018-10-18] MEDS: MONTELUKAST 10 MG TABLET PO SCH (09:14)
[2018-10-19] MEDS: ALBUTEROL/IPRATROPIUM 3 ML NEB RESP TX SCH ×4 (00:20→19:07)
[2018-10-19] MEDS: HEPARIN 5,000 UNIT/1 ML VIAL SUBCUT SCH ×3 (00:51→15:45)
[2018-10-19] MEDS: INSULIN REGULAR 100 UNIT/ML SUBCUT SCH ×4 (08:19→21:08)
[2018-10-19] MEDS: NON-FORMULARY MEDICATION (Ferric Citrate [Auryxia] 210 MG) PO SCH ×3 (08:19→20:31)
[2018-10-19] MEDS ORDERED: VANCOMYCIN INJ 500 MG in SODIUM CHLORIDE 0.9% 100 ML IV ONE (15:00)
[2018-10-19] MEDS: SODIUM HYPOCHLORITE 0.25% IRRIG 473 ML BOTTLE TOP SCH (15:16)
[2018-10-19] MEDS: MONTELUKAST 10 MG TABLET PO SCH (15:17)
[2018-10-20] MEDS: HEPARIN 5,000 UNIT/1 ML VIAL SUBCUT SCH ×3 (01:06→17:56)
[2018-10-20] MEDS: ALBUTEROL/IPRATROPIUM 3 ML NEB RESP TX SCH ×4 (01:45→20:10)
[2018-10-20] MEDS: INSULIN REGULAR 100 UNIT/ML SUBCUT SCH ×4 (08:35→20:57)
[2018-10-20] MEDS: MONTELUKAST 10 MG TABLET PO SCH (09:52)
[2018-10-20] MEDS: NON-FORMULARY MEDICATION (Ferric Citrate [Auryxia] 210 MG) PO SCH ×3 (09:53→20:54)
[2018-10-20] MEDS: SODIUM HYPOCHLORITE 0.25% IRRIG 473 ML BOTTLE TOP SCH (09:53)
[2018-10-21] MEDS: ALBUTEROL/IPRATROPIUM 3 ML NEB RESP TX SCH ×4 (01:22→19:18)
[2018-10-21] MEDS: HEPARIN 5,000 UNIT/1 ML VIAL SUBCUT SCH ×4 (02:45→23:50)
[2018-10-21] MEDS ORDERED: LIDOCAINE 1% 20 ML VIAL ONE (06:35)
[2018-10-21] MEDS ORDERED: BUPIVACAINE 0.5% 50 ML VIAL ONE (06:36)
[2018-10-21] MEDS ORDERED: BENZOIN COMPOUND TINCTURE 58 ML BOTTLE TOP ONE (07:31)
[2018-10-21] MEDS ORDERED: MIDAZOLAM 2 MG/2 ML VIAL ONE (08:25)
[2018-10-21] MEDS ORDERED: PROPOFOL 200 MG/20 ML VIAL IV ONE (08:25)
[2018-10-21] MEDS ORDERED: fentaNYL 100 MCG/2 ML VIAL ONE (08:25)
[2018-10-21] MEDS ORDERED: ePHEDrine 50 MG/ML AMP ONE (08:26)
[2018-10-21] MEDS ORDERED: ONDANSETRON 4 MG/2 ML VIAL ONE (08:26)
[2018-10-21] MEDS ORDERED: SUCCINYLCHOLINE 200 MG/10 ML VIAL ONE (08:26)
[2018-10-21] MEDS ORDERED: SEVOFLURANE 1 UNIT/15 MINUTE INH ONE (08:26)
[2018-10-21] MEDS ORDERED: PHENYLEPHRINE 1 MG/10 ML SYRINGE IV ONE (09:31)
[2018-10-21] MEDS: MONTELUKAST 10 MG TABLET PO SCH (10:16)
[2018-10-21] MEDS: NON-FORMULARY MEDICATION (Ferric Citrate [Auryxia] 210 MG) PO SCH ×3 (10:26→21:25)
[2018-10-21] MEDS: SODIUM HYPOCHLORITE 0.25% IRRIG 473 ML BOTTLE TOP SCH (10:26)
[2018-10-21] MEDS: INSULIN REGULAR 100 UNIT/ML SUBCUT SCH ×4 (12:17→21:54)
[2018-10-21] MEDS: FAMOTIDINE 20 MG TABLET PO SCH (21:25)
[2018-10-22] MEDS: ALBUTEROL/IPRATROPIUM 3 ML NEB RESP TX SCH ×4 (00:31→18:59)
[2018-10-22 06:33] LABS: Basophils # 0.1 10*3/uL (0.0-0.2); Basophils % 0.6 % (0.0-0.8); Eosinophils # 0.1 10*3/uL (0.0-0.87); Eosinophils % 0.6 % (0.00-10.9); Hematocrit 28.5 VOL% (35.7-47.0); Hemoglobin 8.7 GM/DL (12.0-16.0); Immature Granulocytes % 4.2 %; Immature Granulocytes Absolute 0.59 #; Lymphocytes # 1.2 10*3/uL (1.4-4.0); Lymphocytes % 8.5 % (21.3-54.2); Mean Corpuscular HGB Conc 30.5 GM/DL (32-36); Mean Corpuscular Hemoglobin 30 PG (27-34); Mean Corpuscular Volume 96.6 FL (87-102); Mean Platelet Volume 10.1 FL (9.6-12.0); Monocytes # 0.9 10*3/uL (0.11-0.8); Monocytes % 6.1 % (1.7-12.7); NRBC # 0.11 10*3/uL; Neutrophils # 11.4 10*3/uL (1.4-7.4); Platelet Count 189 T/CUMM (130-400); Red Blood Count 2.95 MC/CUMM (3.8-5.5); Red Cell Distribution Width 17.5 % (9.3-17.3); White Blood Count 14.2 T/CUMM (4-12)
[2018-10-22 06:56] LABS: Band Neutrophils 1 % (0-10); Hypochromasia 1+; Lymphocytes 7 % (20-55); Macrocytosis Slight; Platelet Estimate Adequate; Polychromasia Slight; Segmented Neutrophils 85 % (50-85); Total Cells Counted 100
[2018-10-22] MEDS: SODIUM HYPOCHLORITE 0.25% IRRIG 473 ML BOTTLE TOP SCH (08:31)
[2018-10-22] MEDS: INSULIN REGULAR 100 UNIT/ML SUBCUT SCH ×4 (08:31→21:35)
[2018-10-22] MEDS: MONTELUKAST 10 MG TABLET PO SCH (08:31)
[2018-10-22] MEDS: NON-FORMULARY MEDICATION (Ferric Citrate [Auryxia] 210 MG) PO SCH ×3 (08:31→20:06)
[2018-10-22] MEDS: HEPARIN 5,000 UNIT/1 ML VIAL SUBCUT SCH ×3 (08:32→23:54)
[2018-10-22] MEDS ORDERED: VANCOMYCIN INJ 500 MG in SODIUM CHLORIDE 0.9% 100 ML IV ONE (17:00)
[2018-10-22] MEDS: FAMOTIDINE 20 MG TABLET PO SCH (20:03)
[2018-10-23] MEDS: ALBUTEROL/IPRATROPIUM 3 ML NEB RESP TX SCH ×4 (01:22→20:00)
[2018-10-23] MEDS: INSULIN REGULAR 100 UNIT/ML SUBCUT SCH ×4 (08:28→20:37)
[2018-10-23] MEDS: MONTELUKAST 10 MG TABLET PO SCH (08:29)
[2018-10-23] MEDS: HEPARIN 5,000 UNIT/1 ML VIAL SUBCUT SCH ×2 (08:29→17:10)
[2018-10-23] MEDS: NON-FORMULARY MEDICATION (Ferric Citrate [Auryxia] 210 MG) PO SCH ×3 (08:30→20:36)
[2018-10-23] MEDS: SODIUM HYPOCHLORITE 0.25% IRRIG 473 ML BOTTLE TOP SCH (08:30)
[2018-10-23] MEDS: FAMOTIDINE 20 MG TABLET PO SCH (20:31)
[2018-10-24] MEDS: HEPARIN 5,000 UNIT/1 ML VIAL SUBCUT SCH ×3 (00:35→18:20)
[2018-10-24] MEDS: ALBUTEROL/IPRATROPIUM 3 ML NEB RESP TX SCH ×5 (00:36→23:58)
[2018-10-24 04:49] LABS: Basophils # 0.1 10*3/uL (0.0-0.2); Basophils % 0.3 % (0.0-0.8); Eosinophils # 0.1 10*3/uL (0.0-0.87); Eosinophils % 0.6 % (0.00-10.9); Hematocrit 30.2 VOL% (35.7-47.0); Hemoglobin 9.1 GM/DL (12.0-16.0); Immature Granulocytes % 1.3 %; Immature Granulocytes Absolute 0.21 #; Lymphocytes # 0.8 10*3/uL (1.4-4.0); Lymphocytes % 4.9 % (21.3-54.2); Mean Corpuscular HGB Conc 30.1 GM/DL (32-36); Mean Corpuscular Hemoglobin 29 PG (27-34); Mean Corpuscular Volume 97.1 FL (87-102); Mean Platelet Volume 10.3 FL (9.6-12.0); Monocytes # 0.5 10*3/uL (0.11-0.8); NRBC # 0.11 10*3/uL; Neutrophils % 89.9 % (38.7-73.9); Platelet Count 197 T/CUMM (130-400); Red Blood Count 3.11 MC/CUMM (3.8-5.5); Red Cell Distribution Width 17.7 % (9.3-17.3); White Blood Count 15.6 T/CUMM (4-12)
[2018-10-24 05:20] LABS: Band Neutrophils 1 % (0-10); Eosinophils 2 % (0-10); Hypochromasia 1+; Lymphocytes 5 % (20-55); Ovalocytes Slight; Platelet Estimate Adequate; Segmented Neutrophils 90 % (50-85); Total Cells Counted 100
[2018-10-24 05:21] LABS: Macrocytosis Slight
[2018-10-24] MEDS: INSULIN REGULAR 100 UNIT/ML SUBCUT SCH ×4 (07:47→21:12)
[2018-10-24] MEDS: MONTELUKAST 10 MG TABLET PO SCH (08:06)
[2018-10-24] MEDS: SODIUM HYPOCHLORITE 0.25% IRRIG 473 ML BOTTLE TOP SCH (10:28)
[2018-10-24] MEDS: NON-FORMULARY MEDICATION (Ferric Citrate [Auryxia] 210 MG) PO SCH ×3 (10:29→21:36)
[2018-10-24] MEDS: PIPERACILLIN/TAZOBACTAM 3,375 MG in SODIUM CHLORIDE 0.9% 100 ML IV SCH ×2 (10:30→21:15)
[2018-10-24] MEDS ORDERED: VANCOMYCIN INJ 500 MG in SODIUM CHLORIDE 0.9% 100 ML IV ONE (17:00)
[2018-10-24] MEDS: FAMOTIDINE 20 MG TABLET PO SCH (21:11)
[2018-10-25] MEDS: HEPARIN 5,000 UNIT/1 ML VIAL SUBCUT SCH ×3 (00:32→16:12)
[2018-10-25 05:14] LABS: Basophils # 0.1 10*3/uL (0.0-0.2); Basophils % 0.4 % (0.0-0.8); Eosinophils # 0.1 10*3/uL (0.0-0.87); Eosinophils % 1.1 % (0.00-10.9); Hematocrit 29.3 VOL% (35.7-47.0); Hemoglobin 8.9 GM/DL (12.0-16.0); Immature Granulocytes % 1.5 %; Immature Granulocytes Absolute 0.19 #; Lymphocytes # 0.6 10*3/uL (1.4-4.0); Lymphocytes % 4.6 % (21.3-54.2); Mean Corpuscular HGB Conc 30.4 GM/DL (32-36); Mean Corpuscular Hemoglobin 30 PG (27-34); Mean Platelet Volume 9.8 FL (9.6-12.0); Monocytes # 0.6 10*3/uL (0.11-0.8); Monocytes % 4.5 % (1.7-12.7); NRBC # 0.02 10*3/uL; Neutrophils # 11.2 10*3/uL (1.4-7.4); Neutrophils % 87.9 % (38.7-73.9); Platelet Count 179 T/CUMM (130-400); Red Blood Count 3.02 MC/CUMM (3.8-5.5); Red Cell Distribution Width 17.9 % (9.3-17.3); White Blood Count 12.7 T/CUMM (4-12)
[2018-10-25 05:34] LABS: Band Neutrophils 1 % (0-10); Eosinophils 3 % (0-10); Hypochromasia 1+; Lymphocytes 1 % (20-55); Platelet Estimate Adequate; Segmented Neutrophils 92 % (50-85); Total Cells Counted 100
[2018-10-25 05:35] LABS: Macrocytosis Slight
[2018-10-25 05:42] LABS: Calcium 8.8 MG/DL (8.5-10.1); Osmolality,Calculated 282.2 MOS/KG (273-304); Potassium 4.2 MMOL/L (3.5-5.1)
[2018-10-25] MEDS: ALBUTEROL/IPRATROPIUM 3 ML NEB RESP TX SCH ×3 (07:30→19:13)
[2018-10-25] MEDS: INSULIN REGULAR 100 UNIT/ML SUBCUT SCH ×4 (07:53→21:27)
[2018-10-25] MEDS: MONTELUKAST 10 MG TABLET PO SCH (09:02)
[2018-10-25] MEDS: PIPERACILLIN/TAZOBACTAM 3,375 MG in SODIUM CHLORIDE 0.9% 100 ML IV SCH ×2 (09:04→21:27)
[2018-10-25] MEDS: NON-FORMULARY MEDICATION (Ferric Citrate [Auryxia] 210 MG) PO SCH ×3 (09:08→21:40)
[2018-10-25] MEDS: SODIUM HYPOCHLORITE 0.25% IRRIG 473 ML BOTTLE TOP SCH (09:09)
[2018-10-25] MEDS: NEOMYCIN/POLYMYXIN/HC OTIC SOLN 10 ML BOTTLE BOTH EARS SCH ×2 (14:52→21:26)
[2018-10-25] MEDS: FAMOTIDINE 20 MG TABLET PO SCH (21:27)
[2018-10-26] MEDS: ALBUTEROL/IPRATROPIUM 3 ML NEB RESP TX SCH ×4 (00:20→19:34)
[2018-10-26] MEDS: HEPARIN 5,000 UNIT/1 ML VIAL SUBCUT SCH ×3 (01:20→15:35)
[2018-10-26] MEDS: INSULIN REGULAR 100 UNIT/ML SUBCUT SCH ×4 (07:25→21:17)
[2018-10-26] MEDS: PIPERACILLIN/TAZOBACTAM 3,375 MG in SODIUM CHLORIDE 0.9% 100 ML IV SCH ×2 (08:16→21:18)
[2018-10-26] MEDS: NON-FORMULARY MEDICATION (Ferric Citrate [Auryxia] 210 MG) PO SCH ×3 (09:15→21:16)
[2018-10-26] MEDS: SODIUM HYPOCHLORITE 0.25% IRRIG 473 ML BOTTLE TOP SCH (09:15)
[2018-10-26] MEDS: NEOMYCIN/POLYMYXIN/HC OTIC SOLN 10 ML BOTTLE BOTH EARS SCH ×3 (09:16→21:16)
[2018-10-26] MEDS: MONTELUKAST 10 MG TABLET PO SCH (09:16)
[2018-10-26] MEDS ORDERED: VANCOMYCIN INJ 500 MG in SODIUM CHLORIDE 0.9% 100 ML IV ONE (18:00)
[2018-10-26] MEDS: FAMOTIDINE 20 MG TABLET PO SCH (21:17)
[2018-10-27] MEDS: ALBUTEROL/IPRATROPIUM 3 ML NEB RESP TX SCH ×4 (00:42→19:15)
[2018-10-27] MEDS: HEPARIN 5,000 UNIT/1 ML VIAL SUBCUT SCH ×3 (01:14→16:01)
[2018-10-27] MEDS: INSULIN REGULAR 100 UNIT/ML SUBCUT SCH ×4 (07:35→22:20)
[2018-10-27] MEDS: MONTELUKAST 10 MG TABLET PO SCH (08:23)
[2018-10-27] MEDS: NON-FORMULARY MEDICATION (Ferric Citrate [Auryxia] 210 MG) PO SCH ×3 (08:23→22:11)
[2018-10-27] MEDS: SODIUM HYPOCHLORITE 0.25% IRRIG 473 ML BOTTLE TOP SCH (08:23)
[2018-10-27] MEDS: NEOMYCIN/POLYMYXIN/HC OTIC SOLN 10 ML BOTTLE BOTH EARS SCH ×3 (08:23→22:14)
[2018-10-27] MEDS: PIPERACILLIN/TAZOBACTAM 3,375 MG in SODIUM CHLORIDE 0.9% 100 ML IV SCH ×2 (10:00→22:21)
[2018-10-27] MEDS: FAMOTIDINE 20 MG TABLET PO SCH (22:16)
[2018-10-28] MEDS: HEPARIN 5,000 UNIT/1 ML VIAL SUBCUT SCH ×3 (01:14→16:13)
[2018-10-28] MEDS: ALBUTEROL/IPRATROPIUM 3 ML NEB RESP TX SCH ×5 (03:22→22:20)
[2018-10-28 05:16] LABS: Basophils # 0.1 10*3/uL (0.0-0.2); Basophils % 0.7 % (0.0-0.8); Eosinophils # 0.3 10*3/uL (0.0-0.87); Eosinophils % 2.6 % (0.00-10.9); Hematocrit 30.5 VOL% (35.7-47.0); Hemoglobin 9.2 GM/DL (12.0-16.0); Immature Granulocytes % 1.3 %; Immature Granulocytes Absolute 0.14 #; Lymphocytes # 0.8 10*3/uL (1.4-4.0); Lymphocytes % 7.9 % (21.3-54.2); Mean Corpuscular HGB Conc 30.2 GM/DL (32-36); Mean Corpuscular Hemoglobin 29 PG (27-34); Mean Corpuscular Volume 96.5 FL (87-102); Mean Platelet Volume 9.8 FL (9.6-12.0); Monocytes # 0.9 10*3/uL (0.11-0.8); Monocytes % 8.2 % (1.7-12.7); Neutrophils # 8.5 10*3/uL (1.4-7.4); Neutrophils % 79.3 % (38.7-73.9); Platelet Count 184 T/CUMM (130-400); Red Blood Count 3.16 MC/CUMM (3.8-5.5); Red Cell Distribution Width 16.9 % (9.3-17.3); White Blood Count 10.7 T/CUMM (4-12)
[2018-10-28] MEDS: MONTELUKAST 10 MG TABLET PO SCH (08:38)
[2018-10-28] MEDS: SODIUM HYPOCHLORITE 0.25% IRRIG 473 ML BOTTLE TOP SCH (08:38)
[2018-10-28] MEDS: NEOMYCIN/POLYMYXIN/HC OTIC SOLN 10 ML BOTTLE BOTH EARS SCH ×3 (08:38→21:59)
[2018-10-28] MEDS: NON-FORMULARY MEDICATION (Ferric Citrate [Auryxia] 210 MG) PO SCH ×3 (08:39→21:53)
[2018-10-28] MEDS: INSULIN REGULAR 100 UNIT/ML SUBCUT SCH ×4 (08:39→21:52)
[2018-10-28] MEDS: PIPERACILLIN/TAZOBACTAM 3,375 MG in SODIUM CHLORIDE 0.9% 100 ML IV SCH ×2 (08:42→21:53)
[2018-10-28] MEDS: FAMOTIDINE 20 MG TABLET PO SCH (21:53)
[2018-10-29] MEDS: HEPARIN 5,000 UNIT/1 ML VIAL SUBCUT SCH ×3 (01:25→16:28)
[2018-10-29] MEDS: INSULIN REGULAR 100 UNIT/ML SUBCUT SCH ×4 (07:23→20:00)
[2018-10-29] MEDS: ALBUTEROL/IPRATROPIUM 3 ML NEB RESP TX SCH ×3 (08:21→19:19)
[2018-10-29] MEDS: PIPERACILLIN/TAZOBACTAM 3,375 MG in SODIUM CHLORIDE 0.9% 100 ML IV SCH ×2 (08:33→21:45)
[2018-10-29] MEDS: MONTELUKAST 10 MG TABLET PO SCH (08:34)
[2018-10-29] MEDS: NON-FORMULARY MEDICATION (Ferric Citrate [Auryxia] 210 MG) PO SCH ×3 (08:34→20:00)
[2018-10-29] MEDS: NEOMYCIN/POLYMYXIN/HC OTIC SOLN 10 ML BOTTLE BOTH EARS SCH ×3 (08:34→21:46)
[2018-10-29] MEDS: SODIUM HYPOCHLORITE 0.25% IRRIG 473 ML BOTTLE TOP SCH (08:35)
[2018-10-29] MEDS ORDERED: VANCOMYCIN INJ 500 MG in SODIUM CHLORIDE 0.9% 100 ML IV ONE ×2 (10:00→13:00)
[2018-10-29] MEDS: FAMOTIDINE 20 MG TABLET PO SCH (21:45)
[2018-10-30] MEDS: HEPARIN 5,000 UNIT/1 ML VIAL SUBCUT SCH ×3 (00:22→16:28)
[2018-10-30] MEDS: ALBUTEROL/IPRATROPIUM 3 ML NEB RESP TX SCH ×4 (01:00→20:20)
[2018-10-30] MEDS: MONTELUKAST 10 MG TABLET PO SCH (08:20)
[2018-10-30] MEDS: NEOMYCIN/POLYMYXIN/HC OTIC SOLN 10 ML BOTTLE BOTH EARS SCH ×3 (08:21→21:45)
[2018-10-30] MEDS: PIPERACILLIN/TAZOBACTAM 3,375 MG in SODIUM CHLORIDE 0.9% 100 ML IV SCH ×2 (08:22→21:50)
[2018-10-30] MEDS: INSULIN REGULAR 100 UNIT/ML SUBCUT SCH ×4 (08:22→21:46)
[2018-10-30] MEDS: NON-FORMULARY MEDICATION (Ferric Citrate [Auryxia] 210 MG) PO SCH ×3 (08:38→20:41)
[2018-10-30] MEDS: SODIUM HYPOCHLORITE 0.25% IRRIG 473 ML BOTTLE TOP SCH (08:38)
[2018-10-30] MEDS: FAMOTIDINE 20 MG TABLET PO SCH (21:46)
[2018-10-31] MEDS: HEPARIN 5,000 UNIT/1 ML VIAL SUBCUT SCH ×3 (00:32→16:24)
[2018-10-31] MEDS: ALBUTEROL/IPRATROPIUM 3 ML NEB RESP TX SCH ×4 (02:36→19:06)
[2018-10-31] MEDS: INSULIN REGULAR 100 UNIT/ML SUBCUT SCH ×4 (07:42→21:42)
[2018-10-31] MEDS: NON-FORMULARY MEDICATION (Ferric Citrate [Auryxia] 210 MG) PO SCH ×3 (08:55→21:43)
[2018-10-31] MEDS: SODIUM HYPOCHLORITE 0.25% IRRIG 473 ML BOTTLE TOP SCH (08:55)
[2018-10-31] MEDS: PIPERACILLIN/TAZOBACTAM 3,375 MG in SODIUM CHLORIDE 0.9% 100 ML IV SCH (08:57)
[2018-10-31] MEDS: MONTELUKAST 10 MG TABLET PO SCH (08:57)
[2018-10-31] MEDS ORDERED: VANCOMYCIN INJ 500 MG in SODIUM CHLORIDE 0.9% 100 ML IV ONE (18:00)
[2018-10-31] MEDS: FAMOTIDINE 20 MG TABLET PO SCH (21:43)
[2018-11-01] MEDS: HEPARIN 5,000 UNIT/1 ML VIAL SUBCUT SCH ×3 (00:59→16:26)
[2018-11-01] MEDS: ALBUTEROL/IPRATROPIUM 3 ML NEB RESP TX SCH ×4 (03:00→20:14)
[2018-11-01 05:17] LABS: Basophils # 0.1 10*3/uL (0.0-0.2); Basophils % 0.7 % (0.0-0.8); Eosinophils # 0.3 10*3/uL (0.0-0.87); Eosinophils % 2.4 % (0.00-10.9); Hematocrit 34.4 VOL% (35.7-47.0); Hemoglobin 10.5 GM/DL (12.0-16.0); Immature Granulocytes % 4.2 %; Lymphocytes # 1.1 10*3/uL (1.4-4.0); Lymphocytes % 8.8 % (21.3-54.2); Mean Corpuscular HGB Conc 30.5 GM/DL (32-36); Mean Corpuscular Hemoglobin 29 PG (27-34); Mean Corpuscular Volume 96.1 FL (87-102); Mean Platelet Volume 9.7 FL (9.6-12.0); Monocytes # 0.7 10*3/uL (0.11-0.8); NRBC # 0.04 10*3/uL; Neutrophils # 9.4 10*3/uL (1.4-7.4); Neutrophils % 77.9 % (38.7-73.9); Platelet Count 203 T/CUMM (130-400); Red Blood Count 3.58 MC/CUMM (3.8-5.5); Red Cell Distribution Width 16.9 % (9.3-17.3)
[2018-11-01 05:38] LABS: Calcium 9.4 MG/DL (8.5-10.1); Osmolality,Calculated 293.7 MOS/KG (273-304); Potassium 4.6 MMOL/L (3.5-5.1)
[2018-11-01] MEDS ORDERED: CLINDAMYCIN INJ 900 MG in PREMIX 1 EACH IV ONE (06:00)
[2018-11-01] MEDS ORDERED: MINERAL OIL (TOPICAL) 25 ML BOTTLE TOP ONE (06:23)
[2018-11-01] MEDS ORDERED: PROPOFOL 200 MG/20 ML VIAL IV ONE (08:30)
[2018-11-01] MEDS ORDERED: PHENYLEPHRINE DRIP 20 MG/250 ML PREMIX IV ONE (08:31)
[2018-11-01] MEDS ORDERED: PHENYLEPHRINE 1 MG/10 ML SYRINGE IV ONE (08:31)
[2018-11-01] MEDS ORDERED: MIDAZOLAM 2 MG/2 ML VIAL ONE (08:31)
[2018-11-01] MEDS ORDERED: SUCCINYLCHOLINE 200 MG/10 ML VIAL ONE (08:31)
[2018-11-01] MEDS ORDERED: SEVOFLURANE 1 UNIT/15 MINUTE INH ONE (08:31)
[2018-11-01] MEDS ORDERED: fentaNYL 100 MCG/2 ML VIAL ONE (08:31)
[2018-11-01] MEDS ORDERED: ROCURONIUM 100 MG/10 ML VIAL IV ONE (08:32)
[2018-11-01] MEDS: INSULIN REGULAR 100 UNIT/ML SUBCUT SCH ×4 (09:08→21:09)
[2018-11-01] MEDS: MONTELUKAST 10 MG TABLET PO SCH (09:09)
[2018-11-01] MEDS: SODIUM HYPOCHLORITE 0.25% IRRIG 473 ML BOTTLE TOP SCH (09:09)
[2018-11-01] MEDS: NON-FORMULARY MEDICATION (Ferric Citrate [Auryxia] 210 MG) PO SCH ×3 (09:09→21:05)
[2018-11-01] MEDS: FAMOTIDINE 20 MG TABLET PO SCH (21:10)
[2018-11-02] MEDS: ALBUTEROL/IPRATROPIUM 3 ML NEB RESP TX SCH ×4 (00:54→19:59)
[2018-11-02] MEDS: HEPARIN 5,000 UNIT/1 ML VIAL SUBCUT SCH ×3 (01:36→16:30)
[2018-11-02] MEDS ORDERED: VANCOMYCIN INJ 500 MG in SODIUM CHLORIDE 0.9% 100 ML IV PRN (08:08)
[2018-11-02] MEDS: INSULIN REGULAR 100 UNIT/ML SUBCUT SCH ×4 (08:09→21:35)
[2018-11-02] MEDS: MONTELUKAST 10 MG TABLET PO SCH (10:01)
[2018-11-02] MEDS: SODIUM HYPOCHLORITE 0.25% IRRIG 473 ML BOTTLE TOP SCH (10:01)
[2018-11-02] MEDS: NON-FORMULARY MEDICATION (Ferric Citrate [Auryxia] 210 MG) PO SCH ×3 (10:01→21:38)
[2018-11-02] MEDS ORDERED: VANCOMYCIN INJ 500 MG in SODIUM CHLORIDE 0.9% 100 ML IV ONE (16:00)
[2018-11-02] MEDS: FAMOTIDINE 20 MG TABLET PO SCH (21:34)
[2018-11-03] MEDS: ALBUTEROL/IPRATROPIUM 3 ML NEB RESP TX SCH ×4 (00:41→19:26)
[2018-11-03] MEDS: HEPARIN 5,000 UNIT/1 ML VIAL SUBCUT SCH ×3 (00:48→17:05)
[2018-11-03] MEDS: INSULIN REGULAR 100 UNIT/ML SUBCUT SCH ×4 (07:55→21:03)
[2018-11-03] MEDS: NON-FORMULARY MEDICATION (Ferric Citrate [Auryxia] 210 MG) PO SCH ×3 (08:51→21:04)
[2018-11-03] MEDS: SODIUM HYPOCHLORITE 0.25% IRRIG 473 ML BOTTLE TOP SCH (08:51)
[2018-11-03] MEDS: MONTELUKAST 10 MG TABLET PO SCH (08:52)
[2018-11-03] MEDS: FAMOTIDINE 20 MG TABLET PO SCH (21:03)
[2018-11-04] MEDS: HEPARIN 5,000 UNIT/1 ML VIAL SUBCUT SCH ×3 (00:48→17:42)
[2018-11-04] MEDS: ALBUTEROL/IPRATROPIUM 3 ML NEB RESP TX SCH ×5 (01:31→22:42)
[2018-11-04] MEDS: SODIUM HYPOCHLORITE 0.25% IRRIG 473 ML BOTTLE TOP SCH (09:00)
[2018-11-04] MEDS: NON-FORMULARY MEDICATION (Ferric Citrate [Auryxia] 210 MG) PO SCH ×3 (09:00→21:02)
[2018-11-04] MEDS: MONTELUKAST 10 MG TABLET PO SCH (09:32)
[2018-11-04] MEDS: INSULIN REGULAR 100 UNIT/ML SUBCUT SCH ×4 (09:33→21:14)
[2018-11-04] MEDS: FAMOTIDINE 20 MG TABLET PO SCH (21:14)
[2018-11-05] MEDS: HEPARIN 5,000 UNIT/1 ML VIAL SUBCUT SCH ×4 (00:17→23:38)
[2018-11-05] MEDS: INSULIN REGULAR 100 UNIT/ML SUBCUT SCH ×4 (07:23→21:38)
[2018-11-05] MEDS: ALBUTEROL/IPRATROPIUM 3 ML NEB RESP TX SCH ×3 (07:27→19:04)
[2018-11-05] MEDS: NON-FORMULARY MEDICATION (Ferric Citrate [Auryxia] 210 MG) PO SCH ×3 (09:15→21:39)
[2018-11-05] MEDS: SODIUM HYPOCHLORITE 0.25% IRRIG 473 ML BOTTLE TOP SCH (09:15)
[2018-11-05] MEDS: MONTELUKAST 10 MG TABLET PO SCH (13:35)
[2018-11-05] MEDS ORDERED: VANCOMYCIN INJ 500 MG in SODIUM CHLORIDE 0.9% 100 ML IV ONE (17:00)
[2018-11-05] MEDS: FAMOTIDINE 20 MG TABLET PO SCH (21:39)
[2018-11-06] MEDS: ALBUTEROL/IPRATROPIUM 3 ML NEB RESP TX SCH ×2 (00:31→08:42)
[2018-11-06] MEDS: HEPARIN 5,000 UNIT/1 ML VIAL SUBCUT SCH (08:19)
[2018-11-06] MEDS: INSULIN REGULAR 100 UNIT/ML SUBCUT SCH ×2 (08:19→12:30)
[2018-11-06] MEDS: MONTELUKAST 10 MG TABLET PO SCH (08:20)
[2018-11-06] MEDS: SODIUM HYPOCHLORITE 0.25% IRRIG 473 ML BOTTLE TOP SCH (08:20)
[2018-11-06] MEDS: NON-FORMULARY MEDICATION (Ferric Citrate [Auryxia] 210 MG) PO SCH (08:21)
[2018-11-06 12:10] VITALS: BP 148/60
== END 2018-11-06 14:55 | disposition home health service (06) | DRG 239 ==
LOC: N.OR 06:26 → N.SDSINP 06:27 → N.3E 12:21
PROVIDERS: ADMIT Surgery; ATTEND Surgery

== ENCOUNTER 2019-01-23 14:52 | Inpatient (IN) ==
[2019-01-23] MEDS ORDERED: CEFTAROLINE 600 MG in SODIUM CHLORIDE 0.9% 100 ML IV STA (15:38)
[2019-01-23 16:00] LABS: Basophils # 0.1 10*3/uL (0.0-0.2); Basophils % 0.2 % (0.0-0.8); Eosinophils # 0.1 10*3/uL (0.0-0.87); Eosinophils % 0.4 % (0.00-10.9); Hematocrit 34.8 VOL% (35.7-47.0); Hemoglobin 10.6 GM/DL (12.0-16.0); Immature Granulocytes % 1.5 %; Immature Granulocytes Absolute 0.31 #; Lymphocytes # 0.8 10*3/uL (1.4-4.0); Lymphocytes % 3.8 % (21.3-54.2); Mean Corpuscular HGB Conc 30.5 GM/DL (32-36); Mean Corpuscular Volume 97.8 FL (87-102); Mean Platelet Volume 10.3 FL (9.6-12.0); Monocytes % 4.5 % (1.7-12.7); NRBC # 0.04 10*3/uL; Neutrophils % 89.6 % (38.7-73.9); Platelet Count 147 T/CUMM (130-400); Red Blood Count 3.56 MC/CUMM (3.8-5.5); White Blood Count 20.7 T/CUMM (4-12)
[2019-01-23 16:23] LABS: Albumin 2.6 G/DL (3.4-5.0); Bilirubin,Total 2.1 MG/DL (0.2-1.0); Calcium 8.5 MG/DL (8.5-10.1); Osmolality,Calculated 283.5 MOS/KG (273-304); Total Protein 7.1 G/DL (6.4-8.3)
[2019-01-23] MEDS ORDERED: DEXTRAN HYPROMELLOSE BOTH EYES PRN (16:45)
[2019-01-23] MEDS ORDERED: CARBOXYMETHYLCELLULOSE 1% OPH SOLN BOTH EYES PRN (16:45)
[2019-01-23] MEDS ORDERED: ALBUTEROL 2.5 MG/3 ML NEB RESP TX PRN (16:45)
[2019-01-23] MEDS ORDERED: ACETAMINOPHEN 325 MG TABLET PO PRN (16:47)
[2019-01-23] MEDS ORDERED: ONDANSETRON 4 MG/2 ML VIAL IV PRN (16:47)
[2019-01-23] MEDS ORDERED: GLUCAGON 1 MG VIAL IM PRN (16:47)
[2019-01-23] MEDS ORDERED: ALUMINUM/MAGNES/SIMETH MAX STR 30 ML UDCUP PO PRN (17:13)
[2019-01-23] MEDS ORDERED: MAGNESIUM HYDROXIDE SUSP 30 ML UDCUP PO PRN (17:13)
[2019-01-23 17:15] LABS: Sedimentation Rate-Westergren 87 MM/HR (0-30)
[2019-01-23 17:47] LABS: Lymphocytes 3 % (20-55); Segmented Neutrophils 97 % (50-85); Total Cells Counted 100
[2019-01-23 17:48] LABS: Hypochromasia 1+; Macrocytosis 1+; Microcytosis Slight; Platelet Estimate Adequate; Polychromasia Slight; Spherocytes Slight
[2019-01-23 17:49] LABS: Smudge Cells Few
[2019-01-23] MEDS: ENOXAPARIN 30 MG/0.3 ML SYRINGE SUBCUT SCH (20:50)
[2019-01-23] MEDS: CARVEDILOL 6.25 MG TABLET PO SCH (20:51)
[2019-01-23] MEDS: INSULIN REGULAR 100 UNIT/ML SUBCUT SCH (20:51)
[2019-01-23] MEDS: ALBUTEROL/IPRATROPIUM 3 ML NEB RESP TX SCH (20:52)
[2019-01-24] MEDS: ALBUTEROL/IPRATROPIUM 3 ML NEB RESP TX SCH ×4 (01:49→19:47)
[2019-01-24] MEDS ORDERED: CEFTAROLINE 200 MG in SODIUM CHLORIDE 0.9% 100 ML IV SCH (04:00)
[2019-01-24 05:34] LABS: Basophils % 0.1 % (0.0-0.8); Eosinophils % 0.1 % (0.00-10.9); Hemoglobin 9.3 GM/DL (12.0-16.0); Immature Granulocytes % 2.1 %; Immature Granulocytes Absolute 0.34 #; Lymphocytes # 0.5 10*3/uL (1.4-4.0); Lymphocytes % 3.2 % (21.3-54.2); Mean Corpuscular Volume 96.5 FL (87-102); Mean Platelet Volume 10.9 FL (9.6-12.0); Monocytes % 5.4 % (1.7-12.7); NRBC # 0.02 10*3/uL; Neutrophils % 89.1 % (38.7-73.9); Platelet Count 122 T/CUMM (130-400); Red Blood Count 3.11 MC/CUMM (3.8-5.5); Red Cell Distribution Width 17.5 % (9.3-17.3); White Blood Count 16.5 T/CUMM (4-12)
[2019-01-24 05:56] LABS: Hypochromasia 1+; Lymphocytes 2 % (20-55); Microcytosis Slight; Nucleated Red Blood Cells 1 (0-5); Platelet Estimate Decreased; Segmented Neutrophils 96 % (50-85); Total Cells Counted 100
[2019-01-24 06:12] LABS: Calcium 8.5 MG/DL (8.5-10.1); Osmolality,Calculated 288.5 MOS/KG (273-304); Risk Ratio 3.56; Thyroid Stimulating Hormone 0.393 uIU/ml (0.358-3.74); VLDL CHOLESTEROL 22.6 MG/DL
[2019-01-24] MEDS: INSULIN REGULAR 100 UNIT/ML SUBCUT SCH ×4 (07:51→21:39)
[2019-01-24] MEDS ORDERED: PANTOPRAZOLE 40 MG TABLET PO SCH (09:00)
[2019-01-24] MEDS: POLYETHYLENE GLYCOL POWDER 17 GM PACK PO SCH (09:21)
[2019-01-24] MEDS: FERROUS SULFATE 325 MG TABLET PO SCH (09:21)
[2019-01-24] MEDS ORDERED: CLINDAMYCIN INJ 600 MG in PREMIX 1 EACH IV SCH (13:30)
[2019-01-24] MEDS: PIPERACILLIN/TAZOBACTAM 3,375 MG in SODIUM CHLORIDE 0.9% 100 ML IV SCH (17:29)
[2019-01-24] MEDS: CARVEDILOL 6.25 MG TABLET PO SCH ×2 (17:37→17:38)
[2019-01-24] MEDS: SILVER SULFADIAZINE 1% CREAM 25 GM TUBE TOP SCH (17:43)
[2019-01-24] MEDS: ENOXAPARIN 30 MG/0.3 ML SYRINGE SUBCUT SCH (21:37)
[2019-01-25] MEDS: ALBUTEROL/IPRATROPIUM 3 ML NEB RESP TX SCH ×4 (01:35→19:50)
[2019-01-25] MEDS: PIPERACILLIN/TAZOBACTAM 3,375 MG in SODIUM CHLORIDE 0.9% 100 ML IV SCH ×2 (03:07→17:32)
[2019-01-25 06:56] LABS: Basophils % 0.3 % (0.0-0.8); Eosinophils # 0.1 10*3/uL (0.0-0.87); Eosinophils % 0.8 % (0.00-10.9); Hematocrit 33.6 VOL% (35.7-47.0); Hemoglobin 9.8 GM/DL (12.0-16.0); Immature Granulocytes Absolute 0.12 #; Lymphocytes # 0.6 10*3/uL (1.4-4.0); Lymphocytes % 5.2 % (21.3-54.2); Mean Corpuscular HGB Conc 29.2 GM/DL (32-36); Mean Corpuscular Volume 101.5 FL (87-102); Mean Platelet Volume 10.5 FL (9.6-12.0); NRBC # 0.05 10*3/uL; Neutrophils % 87.7 % (38.7-73.9); Platelet Count 120 T/CUMM (130-400); Red Blood Count 3.31 MC/CUMM (3.8-5.5); Red Cell Distribution Width 17.6 % (9.3-17.3); White Blood Count 11.5 T/CUMM (4-12)
[2019-01-25 07:26] LABS: Calcium 8.6 MG/DL (8.5-10.1); Osmolality,Calculated 284.9 MOS/KG (273-304)
[2019-01-25] MEDS: INSULIN REGULAR 100 UNIT/ML SUBCUT SCH ×4 (07:47→21:25)
[2019-01-25] MEDS ORDERED: BISACODYL 5 MG TABLET PO ONE (08:09)
[2019-01-25] MEDS: SILVER SULFADIAZINE 1% CREAM 25 GM TUBE TOP SCH (09:45)
[2019-01-25] MEDS: POLYETHYLENE GLYCOL POWDER 17 GM PACK PO SCH (09:45)
[2019-01-25] MEDS: FERROUS SULFATE 325 MG TABLET PO SCH (09:45)
[2019-01-25] MEDS: CARVEDILOL 6.25 MG TABLET PO SCH ×2 (12:15→17:31)
[2019-01-25] MEDS: CLOTRIMAZOLE 1% CREAM 15 GM TUBE TOP SCH ×2 (12:30→21:55)
[2019-01-25] MEDS: FAMOTIDINE 20 MG TABLET PO SCH (21:55)
[2019-01-25] MEDS: ENOXAPARIN 30 MG/0.3 ML SYRINGE SUBCUT SCH (21:55)
[2019-01-26] MEDS: ALBUTEROL/IPRATROPIUM 3 ML NEB RESP TX SCH ×4 (01:00→19:11)
[2019-01-26] MEDS: PIPERACILLIN/TAZOBACTAM 3,375 MG in SODIUM CHLORIDE 0.9% 100 ML IV SCH (02:14)
[2019-01-26 03:05] LABS: Basophils # 0.1 10*3/uL (0.0-0.2); Basophils % 0.3 % (0.0-0.8); Eosinophils # 0.2 10*3/uL (0.0-0.87); Eosinophils % 1.1 % (0.00-10.9); Hematocrit 31.1 VOL% (35.7-47.0); Hemoglobin 9.5 GM/DL (12.0-16.0); Immature Granulocytes % 0.9 %; Immature Granulocytes Absolute 0.14 #; Lymphocytes # 0.5 10*3/uL (1.4-4.0); Lymphocytes % 3.1 % (21.3-54.2); Mean Corpuscular HGB Conc 30.5 GM/DL (32-36); Mean Corpuscular Volume 97.2 FL (87-102); Mean Platelet Volume 10.8 FL (9.6-12.0); Monocytes % 5.3 % (1.7-12.7); NRBC # 0.08 10*3/uL; Neutrophils % 89.3 % (38.7-73.9); Platelet Count 129 T/CUMM (130-400); Red Cell Distribution Width 17.4 % (9.3-17.3)
[2019-01-26 03:35] LABS: Calcium 8.7 MG/DL (8.5-10.1); Osmolality,Calculated 278.4 MOS/KG (273-304)
[2019-01-26 03:41] LABS: Band Neutrophils 4 % (0-10); Eosinophils 1 % (0-10); Lymphocytes 4 % (20-55); Platelet Estimate Decreased; Segmented Neutrophils 87 % (50-85); Total Cells Counted 100
[2019-01-26 03:42] LABS: Anisocytosis 1+
[2019-01-26] MEDS: INSULIN REGULAR 100 UNIT/ML SUBCUT SCH ×4 (08:10→22:21)
[2019-01-26] MEDS: SILVER SULFADIAZINE 1% CREAM 25 GM TUBE TOP SCH (09:18)
[2019-01-26] MEDS: CARVEDILOL 6.25 MG TABLET PO SCH ×2 (09:18→17:05)
[2019-01-26] MEDS: POLYETHYLENE GLYCOL POWDER 17 GM PACK PO SCH (09:19)
[2019-01-26] MEDS: FERROUS SULFATE 325 MG TABLET PO SCH (09:19)
[2019-01-26] MEDS: CLOTRIMAZOLE 1% CREAM 15 GM TUBE TOP SCH ×2 (09:19→22:30)
[2019-01-26] MEDS ORDERED: SODIUM CHLORIDE 0.9% 250 ML IV ONE (09:38)
[2019-01-26] MEDS ORDERED: OXYMETAZOLINE 0.05% NASAL SPRAY 15 ML BOTTLE ONE NARE PRN (09:38)
[2019-01-26] MEDS ORDERED: LACTULOSE 20 GM/30 ML UDCUP PO PRN (09:41)
[2019-01-26] MEDS: DOCUSATE/SENNA 50-8.6 MG TABLET PO SCH ×2 (11:26→22:29)
[2019-01-26] MEDS: CEFTAROLINE 200 MG in SODIUM CHLORIDE 0.9% 100 ML IV SCH ×2 (11:27→23:58)
[2019-01-26] MEDS: CIPROFLOXACIN INJ 200 MG in PREMIX 1 EACH IV SCH (12:50)
[2019-01-26] MEDS: FAMOTIDINE 20 MG TABLET PO SCH (22:29)
[2019-01-26] MEDS: ENOXAPARIN 30 MG/0.3 ML SYRINGE SUBCUT SCH (22:29)
[2019-01-27] MEDS: ALBUTEROL/IPRATROPIUM 3 ML NEB RESP TX SCH ×5 (01:06→20:21)
[2019-01-27 04:50] LABS: Basophils # 0.1 10*3/uL (0.0-0.2); Basophils % 0.3 % (0.0-0.8); Eosinophils # 0.2 10*3/uL (0.0-0.87); Eosinophils % 1.2 % (0.00-10.9); Hematocrit 33.5 VOL% (35.7-47.0); Hemoglobin 10.2 GM/DL (12.0-16.0); Lymphocytes # 0.7 10*3/uL (1.4-4.0); Lymphocytes % 4.3 % (21.3-54.2); Mean Corpuscular HGB Conc 30.4 GM/DL (32-36); Mean Platelet Volume 10.9 FL (9.6-12.0); Monocytes % 4.5 % (1.7-12.7); NRBC # 0.32 10*3/uL; Neutrophils % 86.7 % (38.7-73.9); Platelet Count 136 T/CUMM (130-400); Red Blood Count 3.49 MC/CUMM (3.8-5.5); Red Cell Distribution Width 17.7 % (9.3-17.3); White Blood Count 16.8 T/CUMM (4-12)
[2019-01-27 05:06] LABS: Osmolality,Calculated 277.8 MOS/KG (273-304)
[2019-01-27 05:21] LABS: Hypochromasia 1+; Lymphocytes 3 % (20-55); Nucleated Red Blood Cells 4 (0-5); Platelet Estimate Normal; Segmented Neutrophils 92 % (50-85); Total Cells Counted 100
[2019-01-27] MEDS: DOCUSATE/SENNA 50-8.6 MG TABLET PO SCH ×2 (08:19→21:49)
[2019-01-27] MEDS: CLOTRIMAZOLE 1% CREAM 15 GM TUBE TOP SCH ×2 (08:19→21:57)
[2019-01-27] MEDS: FERROUS SULFATE 325 MG TABLET PO SCH (08:19)
[2019-01-27] MEDS: CARVEDILOL 6.25 MG TABLET PO SCH ×2 (08:19→17:30)
[2019-01-27] MEDS: POLYETHYLENE GLYCOL POWDER 17 GM PACK PO SCH (08:19)
[2019-01-27] MEDS: SILVER SULFADIAZINE 1% CREAM 25 GM TUBE TOP SCH (08:20)
[2019-01-27] MEDS: INSULIN REGULAR 100 UNIT/ML SUBCUT SCH ×4 (08:20→22:16)
[2019-01-27] MEDS: CEFTAROLINE 200 MG in SODIUM CHLORIDE 0.9% 100 ML IV SCH ×2 (09:59→22:49)
[2019-01-27] MEDS: HEPARIN 5,000 UNIT/1 ML VIAL SUBCUT SCH ×2 (11:15→17:30)
[2019-01-27] MEDS: CIPROFLOXACIN INJ 200 MG in PREMIX 1 EACH IV SCH (11:15)
[2019-01-27] MEDS: FAMOTIDINE 20 MG TABLET PO SCH (21:49)
[2019-01-28] MEDS: ALBUTEROL/IPRATROPIUM 3 ML NEB RESP TX SCH ×4 (01:13→19:51)
[2019-01-28] MEDS: HEPARIN 5,000 UNIT/1 ML VIAL SUBCUT SCH ×3 (02:00→18:01)
[2019-01-28 04:42] LABS: Basophils # 0.1 10*3/uL (0.0-0.2); Basophils % 0.4 % (0.0-0.8); Eosinophils # 0.2 10*3/uL (0.0-0.87); Eosinophils % 1.1 % (0.00-10.9); Hematocrit 33.7 VOL% (35.7-47.0); Hemoglobin 10.2 GM/DL (12.0-16.0); Immature Granulocytes Absolute 0.62 #; Lymphocytes # 0.9 10*3/uL (1.4-4.0); Lymphocytes % 4.5 % (21.3-54.2); Mean Corpuscular HGB Conc 30.3 GM/DL (32-36); Mean Corpuscular Volume 97.7 FL (87-102); Mean Platelet Volume 10.8 FL (9.6-12.0); Monocytes % 3.9 % (1.7-12.7); NRBC # 0.43 10*3/uL; Neutrophils % 87.1 % (38.7-73.9); Platelet Count 153 T/CUMM (130-400); Red Blood Count 3.45 MC/CUMM (3.8-5.5); Red Cell Distribution Width 17.6 % (9.3-17.3); White Blood Count 20.8 T/CUMM (4-12)
[2019-01-28 05:03] LABS: Calcium 9.1 MG/DL (8.5-10.1); Osmolality,Calculated 281.8 MOS/KG (273-304)
[2019-01-28 05:50] LABS: Band Neutrophils 1 % (0-10); Lymphocytes 7 % (20-55); Nucleated Red Blood Cells 1 (0-5); Segmented Neutrophils 88 % (50-85); Total Cells Counted 100
[2019-01-28 05:51] LABS: Anisocytosis 1+; Hypochromasia 1+; Microcytosis 1+; Platelet Estimate Adequate
[2019-01-28] MEDS: INSULIN REGULAR 100 UNIT/ML SUBCUT SCH ×4 (07:40→20:31)
[2019-01-28] MEDS: CARVEDILOL 6.25 MG TABLET PO SCH ×2 (08:23→16:10)
[2019-01-28] MEDS: DOCUSATE/SENNA 50-8.6 MG TABLET PO SCH ×2 (08:24→20:32)
[2019-01-28] MEDS: POLYETHYLENE GLYCOL POWDER 17 GM PACK PO SCH (08:24)
[2019-01-28] MEDS: FERROUS SULFATE 325 MG TABLET PO SCH (08:24)
[2019-01-28] MEDS: CLOTRIMAZOLE 1% CREAM 15 GM TUBE TOP SCH ×2 (08:24→20:32)
[2019-01-28] MEDS: SILVER SULFADIAZINE 1% CREAM 25 GM TUBE TOP SCH (08:24)
[2019-01-28] MEDS ORDERED: LIDOCAINE 1%/EPI INJ 20 ML VIAL ONE (11:44)
[2019-01-28] MEDS ORDERED: BUPIVACAINE MPF 0.25% /EPI 30 ML VIAL ONE (11:44)
[2019-01-28] MEDS ORDERED: PROPOFOL 200 MG/20 ML VIAL IV ONE (16:23)
[2019-01-28] MEDS ORDERED: ETOMIDATE 40 MG/20 ML VIAL IV ONE (16:23)
[2019-01-28] MEDS ORDERED: PHENYLEPHRINE 1 MG/10 ML SYRINGE IV ONE (16:23)
[2019-01-28] MEDS ORDERED: EPINEPHrine 1 MG/ML VIAL ONE (16:23)
[2019-01-28] MEDS ORDERED: PHENYLEPHRINE DRIP 40 MG/250 ML PREMIX IV ONE (16:46)
[2019-01-28] MEDS ORDERED: PHENYLEPHRINE DRIP 40 MG/250 ML PREMIX IV PRN (17:00)
[2019-01-28] MEDS ORDERED: CIPROFLOXACIN 200 MG/100 ML IV ONE (17:12)
[2019-01-28] MEDS ORDERED: HEPARIN 5,000 UNIT/1 ML VIAL ONE (17:15)
[2019-01-28] MEDS: CEFTAROLINE 200 MG in SODIUM CHLORIDE 0.9% 100 ML IV SCH (17:38)
[2019-01-28] MEDS: CIPROFLOXACIN INJ 200 MG in PREMIX 1 EACH IV SCH (18:02)
[2019-01-28] MEDS: FAMOTIDINE 20 MG TABLET PO SCH (20:32)
[2019-01-29] MEDS: ALBUTEROL/IPRATROPIUM 3 ML NEB RESP TX SCH ×4 (01:40→19:00)
[2019-01-29] MEDS ORDERED: LORazepam 2 MG/1 ML VIAL IV ONE (03:10)
[2019-01-29] MEDS ORDERED: LORazepam 2 MG/1 ML VIAL ONE (03:14)
[2019-01-29] MEDS: HEPARIN 5,000 UNIT/1 ML VIAL SUBCUT SCH ×2 (04:31→11:12)
[2019-01-29] MEDS: CEFTAROLINE 200 MG in SODIUM CHLORIDE 0.9% 100 ML IV SCH (04:48)
[2019-01-29 05:35] LABS: Basophils # 0.1 10*3/uL (0.0-0.2); Basophils % 0.5 % (0.0-0.8); Eosinophils # 0.3 10*3/uL (0.0-0.87); Eosinophils % 1.1 % (0.00-10.9); Hematocrit 36.2 VOL% (35.7-47.0); Hemoglobin 11.2 GM/DL (12.0-16.0); Immature Granulocytes % 1.9 %; Immature Granulocytes Absolute 0.45 #; Lymphocytes # 1.1 10*3/uL (1.4-4.0); Lymphocytes % 4.6 % (21.3-54.2); Mean Corpuscular HGB Conc 30.9 GM/DL (32-36); Mean Corpuscular Volume 96.3 FL (87-102); Mean Platelet Volume 10.7 FL (9.6-12.0); Monocytes % 3.1 % (1.7-12.7); NRBC # 0.76 10*3/uL; Neutrophils % 88.8 % (38.7-73.9); Platelet Count 157 T/CUMM (130-400); Red Blood Count 3.76 MC/CUMM (3.8-5.5); Red Cell Distribution Width 18.1 % (9.3-17.3); White Blood Count 23.5 T/CUMM (4-12)
[2019-01-29 05:51] LABS: Calcium 8.3 MG/DL (8.5-10.1); Osmolality,Calculated 284.1 MOS/KG (273-304)
[2019-01-29 06:41] LABS: Anisocytosis 1+; Band Neutrophils 4 % (0-10); Eosinophils 1 % (0-10); Lymphocytes 1 % (20-55); Nucleated Red Blood Cells 4 (0-5); Ovalocytes 1+; Segmented Neutrophils 93 % (50-85); Total Cells Counted 100
[2019-01-29 06:42] LABS: Platelet Estimate Adequate
[2019-01-29] MEDS ORDERED: CLINDAMYCIN INJ 900 MG in PREMIX 1 EACH IV ONE (06:51)
[2019-01-29] MEDS ORDERED: DEXTROSE 50% 25 GM/50 ML SYRINGE IV ONE (07:08)
[2019-01-29] MEDS: DEXTROSE 50% 25 GM/50 ML VIAL IV PRN (07:13)
[2019-01-29] MEDS: INSULIN REGULAR 100 UNIT/ML SUBCUT SCH ×4 (07:23→21:40)
[2019-01-29] MEDS: CARVEDILOL 6.25 MG TABLET PO SCH (07:23)
[2019-01-29] MEDS ORDERED: VANCOMYCIN INJ 750 MG in SODIUM CHLORIDE 0.9% 250 ML IV PRN (07:55)
[2019-01-29] MEDS ORDERED: SODIUM CHLORIDE 0.9% 1,000 ML IV SCH ×2 (08:00)
[2019-01-29] MEDS: FERROUS SULFATE 325 MG TABLET PO SCH (08:19)
[2019-01-29] MEDS: CLOTRIMAZOLE 1% CREAM 15 GM TUBE TOP SCH ×2 (08:19→21:05)
[2019-01-29] MEDS: DOCUSATE/SENNA 50-8.6 MG TABLET PO SCH (08:19)
[2019-01-29] MEDS: POLYETHYLENE GLYCOL POWDER 17 GM PACK PO SCH (08:19)
[2019-01-29] MEDS: SILVER SULFADIAZINE 1% CREAM 25 GM TUBE TOP SCH (08:19)
[2019-01-29] MEDS ORDERED: SODIUM CHLORIDE 0.9% 500 ML IV ONE (08:20)
[2019-01-29] MEDS ORDERED: cefTAZidime 500 MG in SYRINGE 1 EACH IV SCH (08:30)
[2019-01-29] MEDS ORDERED: PROPOFOL 1,000 MG/100 ML BOTTLE IV ONE (08:56)
[2019-01-29] MEDS ORDERED: ETOMIDATE 40 MG/20 ML VIAL IV ONE (09:32)
[2019-01-29] MEDS ORDERED: SEVOFLURANE 1 UNIT/15 MINUTE INH ONE (09:32)
[2019-01-29] MEDS ORDERED: KETAMINE 500 MG/10 ML VIAL ONE (09:32)
[2019-01-29] MEDS ORDERED: EPINEPHrine 1 MG/ML VIAL ONE (09:32)
[2019-01-29] MEDS ORDERED: MIDAZOLAM 2 MG/2 ML VIAL ONE (09:32)
[2019-01-29] MEDS ORDERED: VANCOMYCIN INJ 1,750 MG in SODIUM CHLORIDE 0.9% 500 ML IV ONE (10:00)
[2019-01-29 10:08] LABS: ABG Base Excess -5.5 MMOL/L (-2.5-2.5); ABG HCO3 19.9 MMOL/L (20-26); ABG Oxygen Saturation 93.8 % (95-100); ABG PCO2 40.7 MM HG (35-48); ABG PO2 83.7 MM HG (80-95); ABG TCO2 18.6 MMOL/L (23-27); Allen Test Positive; Pt O2 Delivery Device Ventilator
[2019-01-29] MEDS: PROPOFOL 1,000 MG/100 ML BOTTLE IV SCH ×2 (11:00→22:50)
[2019-01-29] MEDS ORDERED: CEFEPIME 1,000 MG in SYRINGE 1 EACH IV ONE (11:00)
[2019-01-29] MEDS: PHENYLEPHRINE INJ 160 MG in SODIUM CHLORIDE 0.9% 234 ML IV PRN (11:18)
[2019-01-29] MEDS: FAMOTIDINE 20 MG/2 ML VIAL IV SCH (12:25)
[2019-01-30] MEDS: ALBUTEROL/IPRATROPIUM 3 ML NEB RESP TX SCH ×4 (01:10→19:34)
[2019-01-30 05:32] LABS: ABG Base Excess -6.4 MMOL/L (-2.5-2.5); ABG HCO3 19.3 MMOL/L (20-26); ABG PCO2 31.9 MM HG (35-48); ABG PH 7.361 (7.35-7.45); ABG TCO2 15.9 MMOL/L (23-27); Allen Test Positive; Pt O2 Delivery Device Ventilator
[2019-01-30 06:01] LABS: Prealbumin 66.4 MG/DL (20-40)
[2019-01-30 06:05] LABS: Osmolality,Calculated 273.1 MOS/KG (273-304)
[2019-01-30 06:06] LABS: Calcium 6.1 MG/DL (8.5-10.1)
[2019-01-30 07:26] LABS: Basophils # 0.2 10*3/uL (0.0-0.2); Eosinophils # 0.1 10*3/uL (0.0-0.87); Eosinophils % 0.6 % (0.00-10.9); Hematocrit 38.9 VOL% (35.7-47.0); Hemoglobin 11.9 GM/DL (12.0-16.0); Immature Granulocytes % 5.7 %; Immature Granulocytes Absolute 1.17 #; Lymphocytes # 2.5 10*3/uL (1.4-4.0); Lymphocytes % 12.3 % (21.3-54.2); Mean Corpuscular HGB Conc 30.6 GM/DL (32-36); Mean Platelet Volume 10.3 FL (9.6-12.0); Monocytes % 5.4 % (1.7-12.7); NRBC # 1.94 10*3/uL; Platelet Count 170 T/CUMM (130-400); Red Blood Count 4.05 MC/CUMM (3.8-5.5); Red Cell Distribution Width 18.5 % (9.3-17.3); White Blood Count 20.4 T/CUMM (4-12)
[2019-01-30 07:49] LABS: Anisocytosis 2+; Band Neutrophils 10 % (0-10); Eosinophils 2 % (0-10); Lymphocytes 14 % (20-55); Nucleated Red Blood Cells 6 (0-5); Platelet Estimate Normal; Polychromasia Slight; Segmented Neutrophils 71 % (50-85); Total Cells Counted 100
[2019-01-30 07:50] LABS: Macrocytosis 1+
[2019-01-30] MEDS: INSULIN REGULAR 100 UNIT/ML SUBCUT SCH ×4 (07:51→20:10)
[2019-01-30] MEDS: SILVER SULFADIAZINE 1% CREAM 25 GM TUBE TOP SCH (08:56)
[2019-01-30] MEDS: PHENYLEPHRINE INJ 160 MG in SODIUM CHLORIDE 0.9% 234 ML IV PRN (09:07)
[2019-01-30] MEDS: metroNIDAZOLE INJ 500 MG in PREMIX 1 EACH IV SCH ×2 (09:56→17:29)
[2019-01-30] MEDS: PROPOFOL 1,000 MG/100 ML BOTTLE IV SCH ×2 (09:57→13:00)
[2019-01-30] MEDS: CLOTRIMAZOLE 1% CREAM 15 GM TUBE TOP SCH ×2 (10:22→20:10)
[2019-01-30] MEDS ORDERED: DEXTROSE 50% 25 GM/50 ML SYRINGE IV ONE (10:39)
[2019-01-30] MEDS: CEFEPIME 500 MG in SYRINGE 1 EACH IV SCH (10:45)
[2019-01-30] MEDS: FAMOTIDINE 20 MG/2 ML VIAL IV SCH (10:48)
[2019-01-30] MEDS: DEXTROSE 50% 25 GM/50 ML VIAL IV PRN (10:50)
[2019-01-30] MEDS: HEPARIN 5,000 UNIT/1 ML VIAL SUBCUT SCH ×2 (12:54→20:09)
[2019-01-30] MEDS ORDERED: VANCOMYCIN INJ 750 MG in SODIUM CHLORIDE 0.9% 250 ML IV ONE (14:00)
[2019-01-30 15:32] LABS: Calcium 8.3 MG/DL (8.5-10.1); Osmolality,Calculated 287.4 MOS/KG (273-304)
[2019-01-31] MEDS: ALBUTEROL/IPRATROPIUM 3 ML NEB RESP TX SCH ×4 (00:54→19:08)
[2019-01-31] MEDS: metroNIDAZOLE INJ 500 MG in PREMIX 1 EACH IV SCH ×2 (01:37→14:06)
[2019-01-31] MEDS: PROPOFOL 1,000 MG/100 ML BOTTLE IV SCH ×2 (03:14→14:06)
[2019-01-31] MEDS: HEPARIN 5,000 UNIT/1 ML VIAL SUBCUT SCH ×3 (04:21→20:28)
[2019-01-31 04:37] LABS: Allen Test Positive; Pt O2 Delivery Device Ventilator
[2019-01-31 04:38] LABS: ABG Base Excess -0.9 MMOL/L (-2.5-2.5); ABG HCO3 23.1 MMOL/L (20-26); ABG PCO2 35.8 MM HG (35-48); ABG PH 7.428 (7.35-7.45); ABG PO2 91.6 MM HG (80-95); ABG TCO2 24.2 MMOL/L (23-27)
[2019-01-31 06:09] LABS: Basophils # 0.1 10*3/uL (0.0-0.2); Basophils % 0.6 % (0.0-0.8); Eosinophils # 0.2 10*3/uL (0.0-0.87); Eosinophils % 1.1 % (0.00-10.9); Hematocrit 35.2 VOL% (35.7-47.0); Hemoglobin 10.7 GM/DL (12.0-16.0); Immature Granulocytes % 3.4 %; Lymphocytes # 1.4 10*3/uL (1.4-4.0); Lymphocytes % 8.2 % (21.3-54.2); Mean Corpuscular HGB Conc 30.4 GM/DL (32-36); Mean Corpuscular Volume 96.7 FL (87-102); Mean Platelet Volume 10.1 FL (9.6-12.0); Monocytes % 4.6 % (1.7-12.7); Neutrophils % 82.1 % (38.7-73.9); Platelet Count 132 T/CUMM (130-400); Red Blood Count 3.64 MC/CUMM (3.8-5.5); Red Cell Distribution Width 18.5 % (9.3-17.3); White Blood Count 17.7 T/CUMM (4-12)
[2019-01-31 06:41] LABS: Eosinophils 1 % (0-10); Lymphocytes 6 % (20-55); Nucleated Red Blood Cells 2 (0-5); Segmented Neutrophils 91 % (50-85); Total Cells Counted 100
[2019-01-31 06:42] LABS: Calcium 8.3 MG/DL (8.5-10.1); Hypochromasia Slight; Macrocytosis Slight; Osmolality,Calculated 289.4 MOS/KG (273-304); Platelet Estimate Normal
[2019-01-31 06:43] LABS: Polychromasia Slight
[2019-01-31] MEDS: INSULIN REGULAR 100 UNIT/ML SUBCUT SCH ×4 (07:43→20:46)
[2019-01-31] MEDS: CLOTRIMAZOLE 1% CREAM 15 GM TUBE TOP SCH ×2 (08:25→20:35)
[2019-01-31] MEDS: SILVER SULFADIAZINE 1% CREAM 25 GM TUBE TOP SCH (08:26)
[2019-01-31] MEDS: CEFEPIME 500 MG in SYRINGE 1 EACH IV SCH (10:57)
[2019-01-31] MEDS: FAMOTIDINE 20 MG/2 ML VIAL IV SCH (13:21)
[2019-02-01] MEDS: ALBUTEROL/IPRATROPIUM 3 ML NEB RESP TX SCH ×4 (01:26→20:24)
[2019-02-01] MEDS: HEPARIN 5,000 UNIT/1 ML VIAL SUBCUT SCH ×3 (04:00→20:47)
[2019-02-01 04:12] LABS: ABG Base Excess -1.1 MMOL/L (-2.5-2.5); ABG HCO3 23.4 MMOL/L (20-26); ABG Oxygen Saturation 96.1 % (95-100); ABG PCO2 38.9 MM HG (35-48); ABG PO2 91.1 MM HG (80-95); ABG TCO2 21.6 MMOL/L (23-27); Allen Test Positive; Pt O2 Delivery Device Ventilator
[2019-02-01 04:40] LABS: Basophils % 0.3 % (0.0-0.8); Eosinophils # 0.2 10*3/uL (0.0-0.87); Hematocrit 30.4 VOL% (35.7-47.0); Hemoglobin 9.3 GM/DL (12.0-16.0); Immature Granulocytes % 2.7 %; Immature Granulocytes Absolute 0.26 #; Lymphocytes # 0.9 10*3/uL (1.4-4.0); Lymphocytes % 9.7 % (21.3-54.2); Mean Corpuscular HGB Conc 30.6 GM/DL (32-36); Mean Corpuscular Volume 96.8 FL (87-102); Mean Platelet Volume 10.4 FL (9.6-12.0); Monocytes % 6.1 % (1.7-12.7); NRBC # 0.07 10*3/uL; Neutrophils % 79.2 % (38.7-73.9); Platelet Count 104 T/CUMM (130-400); Red Blood Count 3.14 MC/CUMM (3.8-5.5); Red Cell Distribution Width 18.7 % (9.3-17.3); White Blood Count 9.7 T/CUMM (4-12)
[2019-02-01 05:06] LABS: Albumin 1.6 G/DL (3.4-5.0); Bilirubin,Total 1.7 MG/DL (0.2-1.0); Calcium 8.1 MG/DL (8.5-10.1); Osmolality,Calculated 295.1 MOS/KG (273-304); Total Protein 5.5 G/DL (6.4-8.3)
[2019-02-01] MEDS: PROPOFOL 1,000 MG/100 ML BOTTLE IV SCH ×2 (06:53→11:13)
[2019-02-01] MEDS ORDERED: DILTIAZEM 50 MG/10 ML VIAL IV ONE (08:30)
[2019-02-01] MEDS ORDERED: DILTIAZEM 25 MG/5 ML VIAL IV ONE (08:33)
[2019-02-01] MEDS: dilTIAZem Drip 125 MG/125 ML PREMIX IV SCH (08:40)
[2019-02-01] MEDS: INSULIN REGULAR 100 UNIT/ML SUBCUT SCH ×4 (08:54→21:45)
[2019-02-01] MEDS: SILVER SULFADIAZINE 1% CREAM 25 GM TUBE TOP SCH (09:05)
[2019-02-01] MEDS: CLOTRIMAZOLE 1% CREAM 15 GM TUBE TOP SCH ×2 (09:05→20:46)
[2019-02-01] MEDS ORDERED: VANCOMYCIN INJ 1,000 MG in SODIUM CHLORIDE 0.9% 250 ML IV ONE (10:15)
[2019-02-01] MEDS ORDERED: DORNASE ALFA 2.5 MG/2.5 ML VIAL RESP TX SCH (10:30)
[2019-02-01] MEDS: methylPREDNISolone SOD SUC 40 MG/1 ML VIAL IV SCH ×2 (12:20→19:22)
[2019-02-01] MEDS: CEFEPIME 500 MG in SYRINGE 1 EACH IV SCH (12:33)
[2019-02-01] MEDS: ASPIRIN CHEW 81 MG TABLET PO SCH (12:35)
[2019-02-01] MEDS: ASCORBIC ACID 500 MG TABLET PO SCH ×2 (12:35→20:46)
[2019-02-01] MEDS: FAMOTIDINE 20 MG/2 ML VIAL IV SCH (12:41)
[2019-02-01] MEDS ORDERED: VANCOMYCIN INJ 750 MG in SODIUM CHLORIDE 0.9% 250 ML IV ONE (14:00)
[2019-02-02] MEDS: ALBUTEROL/IPRATROPIUM 3 ML NEB RESP TX SCH ×4 (00:29→19:22)
[2019-02-02] MEDS: dilTIAZem Drip 125 MG/125 ML PREMIX IV SCH ×2 (01:01→08:46)
[2019-02-02] MEDS: methylPREDNISolone SOD SUC 40 MG/1 ML VIAL IV SCH ×3 (02:45→18:08)
[2019-02-02] MEDS: HEPARIN 5,000 UNIT/1 ML VIAL SUBCUT SCH ×3 (03:31→20:55)
[2019-02-02 04:16] LABS: ABG Base Excess -5.2 MMOL/L (-2.5-2.5); ABG Oxygen Saturation 89.8 % (95-100); ABG PCO2 36.2 MM HG (35-48); ABG PH 7.348 (7.35-7.45); ABG PO2 67.9 MM HG (80-95); ABG TCO2 17.8 MMOL/L (23-27)
[2019-02-02 05:05] LABS: Basophils % 0.3 % (0.0-0.8); Eosinophils % 0.1 % (0.00-10.9); Hematocrit 36.8 VOL% (35.7-47.0); Hemoglobin 11.2 GM/DL (12.0-16.0); Immature Granulocytes % 2.2 %; Immature Granulocytes Absolute 0.26 #; Lymphocytes # 0.4 10*3/uL (1.4-4.0); Lymphocytes % 3.4 % (21.3-54.2); Mean Corpuscular HGB Conc 30.4 GM/DL (32-36); Mean Corpuscular Volume 97.1 FL (87-102); Mean Platelet Volume 10.9 FL (9.6-12.0); NRBC # 0.09 10*3/uL; Platelet Count 146 T/CUMM (130-400); Red Blood Count 3.79 MC/CUMM (3.8-5.5); Red Cell Distribution Width 19.1 % (9.3-17.3); White Blood Count 11.6 T/CUMM (4-12)
[2019-02-02 05:35] LABS: Albumin 1.9 G/DL (3.4-5.0); Bilirubin,Total 2.2 MG/DL (0.2-1.0); Calcium 8.4 MG/DL (8.5-10.1); Osmolality,Calculated 287.7 MOS/KG (273-304); Total Protein 6.7 G/DL (6.4-8.3)
[2019-02-02 07:00] LABS: Anisocytosis 1+; Hypochromasia 2+; Lymphocytes 6 % (20-55); Macrocytosis 1+; Ovalocytes Few; Platelet Estimate Decreased; Polychromasia 1+; Segmented Neutrophils 93 % (50-85); Total Cells Counted 100
[2019-02-02] MEDS: PHENYLEPHRINE INJ 160 MG in SODIUM CHLORIDE 0.9% 234 ML IV PRN (07:36)
[2019-02-02] MEDS: INSULIN REGULAR 100 UNIT/ML SUBCUT SCH ×4 (07:55→20:54)
[2019-02-02] MEDS: ASPIRIN CHEW 81 MG TABLET PO SCH (08:46)
[2019-02-02] MEDS: ASCORBIC ACID 500 MG TABLET PO SCH ×2 (08:46→20:54)
[2019-02-02] MEDS: CLOTRIMAZOLE 1% CREAM 15 GM TUBE TOP SCH ×2 (08:47→20:55)
[2019-02-02] MEDS: SILVER SULFADIAZINE 1% CREAM 25 GM TUBE TOP SCH (08:51)
[2019-02-02] MEDS: PROPOFOL 1,000 MG/100 ML BOTTLE IV SCH (10:07)
[2019-02-02] MEDS: CEFEPIME 500 MG in SYRINGE 1 EACH IV SCH (10:15)
[2019-02-02] MEDS: FAMOTIDINE 20 MG/2 ML VIAL IV SCH (10:30)
[2019-02-02] MEDS ORDERED: traMADol 50 MG TABLET PO PRN (13:39)
[2019-02-03] MEDS: ALBUTEROL/IPRATROPIUM 3 ML NEB RESP TX SCH ×4 (01:14→19:22)
[2019-02-03] MEDS: methylPREDNISolone SOD SUC 40 MG/1 ML VIAL IV SCH ×2 (02:51→16:03)
[2019-02-03 04:32] LABS: Basophils % 0.1 % (0.0-0.8); Hematocrit 37.6 VOL% (35.7-47.0); Hemoglobin 11.4 GM/DL (12.0-16.0); Immature Granulocytes Absolute 0.21 #; Lymphocytes # 0.5 10*3/uL (1.4-4.0); Lymphocytes % 4.9 % (21.3-54.2); Mean Corpuscular HGB Conc 30.3 GM/DL (32-36); Mean Corpuscular Volume 98.9 FL (87-102); Mean Platelet Volume 10.7 FL (9.6-12.0); Monocytes % 3.4 % (1.7-12.7); NRBC # 0.07 10*3/uL; Neutrophils % 89.6 % (38.7-73.9); Platelet Count 181 T/CUMM (130-400); Red Cell Distribution Width 19.3 % (9.3-17.3); White Blood Count 10.5 T/CUMM (4-12)
[2019-02-03 04:44] LABS: Bilirubin,Total 1.7 MG/DL (0.2-1.0); Calcium 8.9 MG/DL (8.5-10.1); Osmolality,Calculated 294.7 MOS/KG (273-304); Total Protein 6.8 G/DL (6.4-8.3)
[2019-02-03 04:51] LABS: Band Neutrophils 1 % (0-10); Lymphocytes 9 % (20-55); Nucleated Red Blood Cells 1 (0-5); Segmented Neutrophils 87 % (50-85); Total Cells Counted 100
[2019-02-03 04:52] LABS: Prealbumin 7.8 MG/DL (20-40)
[2019-02-03 04:53] LABS: Polychromasia Slight
[2019-02-03 04:55] LABS: Hypochromasia 1+; Macrocytosis 1+
[2019-02-03] MEDS: HEPARIN 5,000 UNIT/1 ML VIAL SUBCUT SCH ×2 (05:08→11:45)
[2019-02-03] MEDS: INSULIN REGULAR 100 UNIT/ML SUBCUT SCH ×4 (10:24→20:24)
[2019-02-03] MEDS: SILVER SULFADIAZINE 1% CREAM 25 GM TUBE TOP SCH (10:25)
[2019-02-03] MEDS: PROPOFOL 1,000 MG/100 ML BOTTLE IV SCH (10:25)
[2019-02-03] MEDS: dilTIAZem Drip 125 MG/125 ML PREMIX IV SCH (10:26)
[2019-02-03 11:01] LABS: Risk Ratio 6.56; VLDL CHOLESTEROL 47.6 MG/DL
[2019-02-03] MEDS: ASPIRIN CHEW 81 MG TABLET PO SCH (11:14)
[2019-02-03] MEDS: CLOTRIMAZOLE 1% CREAM 15 GM TUBE TOP SCH ×2 (11:14→20:24)
[2019-02-03] MEDS: ASCORBIC ACID 500 MG TABLET PO SCH ×2 (11:15→20:24)
[2019-02-03] MEDS: FAMOTIDINE 20 MG/2 ML VIAL IV SCH (11:40)
[2019-02-03] MEDS: ATORVASTATIN 80 MG TABLET PO SCH (20:24)
[2019-02-03] MEDS: APIXABAN 5 MG TABLET PO SCH (20:24)
[2019-02-04] MEDS: ALBUTEROL/IPRATROPIUM 3 ML NEB RESP TX SCH ×4 (02:02→19:17)
[2019-02-04] MEDS: methylPREDNISolone SOD SUC 40 MG/1 ML VIAL IV SCH ×2 (02:07→15:31)
[2019-02-04 09:08] LABS: Basophils % 0.1 % (0.0-0.8); Hemoglobin 10.7 GM/DL (12.0-16.0); Immature Granulocytes % 1.1 %; Immature Granulocytes Absolute 0.08 #; Lymphocytes # 0.2 10*3/uL (1.4-4.0); Lymphocytes % 2.8 % (21.3-54.2); Mean Corpuscular HGB Conc 29.7 GM/DL (32-36); Mean Corpuscular Volume 98.9 FL (87-102); Mean Platelet Volume 10.2 FL (9.6-12.0); Monocytes % 2.5 % (1.7-12.7); NRBC # 0.03 10*3/uL; Neutrophils % 93.5 % (38.7-73.9); Platelet Count 129 T/CUMM (130-400); Red Blood Count 3.64 MC/CUMM (3.8-5.5); Red Cell Distribution Width 18.9 % (9.3-17.3); White Blood Count 7.6 T/CUMM (4-12)
[2019-02-04 09:27] LABS: Hypochromasia 1+; Lymphocytes 3 % (20-55); Nucleated Red Blood Cells 2 (0-5); Platelet Estimate Adequate; Segmented Neutrophils 96 % (50-85); Total Cells Counted 100
[2019-02-04 09:28] LABS: Macrocytosis Slight; Polychromasia Slight
[2019-02-04 09:39] LABS: Albumin 2.2 G/DL (3.4-5.0); Bilirubin,Total 1.4 MG/DL (0.2-1.0); Calcium 8.1 MG/DL (8.5-10.1); Osmolality,Calculated 299.8 MOS/KG (273-304); Total Protein 6.5 G/DL (6.4-8.3)
[2019-02-04] MEDS: INSULIN REGULAR 100 UNIT/ML SUBCUT SCH ×4 (10:02→21:43)
[2019-02-04] MEDS: ASCORBIC ACID 500 MG TABLET PO SCH ×2 (10:02→21:43)
[2019-02-04] MEDS: ASPIRIN CHEW 81 MG TABLET PO SCH (10:02)
[2019-02-04] MEDS: APIXABAN 5 MG TABLET PO SCH ×2 (10:03→21:42)
[2019-02-04] MEDS: CLOTRIMAZOLE 1% CREAM 15 GM TUBE TOP SCH ×2 (10:09→21:43)
[2019-02-04] MEDS: SILVER SULFADIAZINE 1% CREAM 25 GM TUBE TOP SCH (10:13)
[2019-02-04] MEDS: dilTIAZem Drip 125 MG/125 ML PREMIX IV SCH (10:14)
[2019-02-04] MEDS: FAMOTIDINE 20 MG/2 ML VIAL IV SCH (12:30)
[2019-02-04] MEDS: INSULIN GLARGINE 100 UNIT/ML SUBCUT SCH ×2 (15:32→21:43)
[2019-02-04] MEDS: ATORVASTATIN 80 MG TABLET PO SCH (21:41)
[2019-02-04] MEDS: DOCUSATE/SENNA 50-8.6 MG TABLET PO SCH (21:42)
[2019-02-04] MEDS: Ferric Citrate [Auryxia] 420 MG PO SCH (21:44)
[2019-02-05] MEDS: ALBUTEROL/IPRATROPIUM 3 ML NEB RESP TX SCH ×4 (00:12→19:03)
[2019-02-05] MEDS: methylPREDNISolone SOD SUC 40 MG/1 ML VIAL IV SCH (03:08)
[2019-02-05] MEDS: INSULIN REGULAR 100 UNIT/ML SUBCUT SCH ×4 (09:09→21:27)
[2019-02-05] MEDS: APIXABAN 5 MG TABLET PO SCH ×2 (09:10→20:56)
[2019-02-05] MEDS: ASPIRIN CHEW 81 MG TABLET PO SCH (09:10)
[2019-02-05] MEDS: ASCORBIC ACID 500 MG TABLET PO SCH ×2 (09:10→20:56)
[2019-02-05] MEDS: INSULIN GLARGINE 100 UNIT/ML SUBCUT SCH ×2 (09:11→21:27)
[2019-02-05] MEDS: DOCUSATE/SENNA 50-8.6 MG TABLET PO SCH ×2 (09:11→20:57)
[2019-02-05] MEDS: CLOTRIMAZOLE 1% CREAM 15 GM TUBE TOP SCH ×2 (09:11→21:02)
[2019-02-05] MEDS: POLYETHYLENE GLYCOL POWDER 17 GM PACK PO SCH (09:11)
[2019-02-05] MEDS: Ferric Citrate [Auryxia] 420 MG PO SCH ×3 (09:14→20:59)
[2019-02-05] MEDS: FAMOTIDINE 20 MG/2 ML VIAL IV SCH (12:30)
[2019-02-05] MEDS: DILTIAZEM CD 120 MG CAPSULE PO SCH (12:30)
[2019-02-05] MEDS: ATORVASTATIN 80 MG TABLET PO SCH (20:56)
[2019-02-06] MEDS: ALBUTEROL/IPRATROPIUM 3 ML NEB RESP TX SCH ×3 (00:18→13:50)
[2019-02-06 04:35] LABS: Basophils % 0.1 % (0.0-0.8); Hematocrit 33.3 VOL% (35.7-47.0); Hemoglobin 9.9 GM/DL (12.0-16.0); Immature Granulocytes % 1.1 %; Immature Granulocytes Absolute 0.11 #; Lymphocytes # 0.4 10*3/uL (1.4-4.0); Lymphocytes % 3.9 % (21.3-54.2); Mean Corpuscular HGB Conc 29.7 GM/DL (32-36); Mean Corpuscular Volume 97.4 FL (87-102); Mean Platelet Volume 10.1 FL (9.6-12.0); Monocytes % 6.4 % (1.7-12.7); NRBC # 0.02 10*3/uL; Neutrophils % 88.5 % (38.7-73.9); Platelet Count 139 T/CUMM (130-400); Red Blood Count 3.42 MC/CUMM (3.8-5.5); Red Cell Distribution Width 18.8 % (9.3-17.3); White Blood Count 10.3 T/CUMM (4-12)
[2019-02-06 04:54] LABS: Calcium 7.5 MG/DL (8.5-10.1); Osmolality,Calculated 297.7 MOS/KG (273-304)
[2019-02-06 05:21] LABS: Lymphocytes 3 % (20-55); Myelocytes 1 %; Segmented Neutrophils 93 % (50-85); Total Cells Counted 100
[2019-02-06 05:22] LABS: Hypochromasia Slight; Macrocytosis 1+; Platelet Estimate Adequate
[2019-02-06] MEDS: INSULIN REGULAR 100 UNIT/ML SUBCUT SCH ×2 (08:03→13:33)
[2019-02-06] MEDS: POLYETHYLENE GLYCOL POWDER 17 GM PACK PO SCH (08:06)
[2019-02-06] MEDS: DOCUSATE/SENNA 50-8.6 MG TABLET PO SCH (08:11)
[2019-02-06] MEDS: ASPIRIN CHEW 81 MG TABLET PO SCH (08:11)
[2019-02-06] MEDS: APIXABAN 5 MG TABLET PO SCH (08:11)
[2019-02-06] MEDS: ASCORBIC ACID 500 MG TABLET PO SCH (08:12)
[2019-02-06] MEDS: INSULIN GLARGINE 100 UNIT/ML SUBCUT SCH (10:44)
[2019-02-06] MEDS: Ferric Citrate [Auryxia] 420 MG PO SCH (13:32)
[2019-02-06] MEDS: CLOTRIMAZOLE 1% CREAM 15 GM TUBE TOP SCH (13:33)
[2019-02-06] MEDS: FAMOTIDINE 20 MG/2 ML VIAL IV SCH (13:33)
[2019-02-06] MEDS: DILTIAZEM CD 120 MG CAPSULE PO SCH (13:33)
[2019-02-06 14:23] VITALS: BP 130/61
== END 2019-02-06 14:25 | DRG 853 ==
LOC: EDUNIT# → EDBD → N.ED 14:52 → N.EDINP 15:38 → SUATTDRO 15:38 → N.5E 15:58 → N.ICU 01-28 18:28 → N.3E 02-05 16:07
PROVIDERS: ADMIT Internal Medicine; ATTEND Internal Medicine

== ENCOUNTER 2019-02-19 09:11 | Inpatient (IN) ==
[2019-02-19] MEDS ORDERED: SODIUM CHLORIDE 0.9% 1,000 ML IV STA (09:35)
[2019-02-19] MEDS ORDERED: PANTOPRAZOLE 40 MG VIAL IV STA (09:35)
[2019-02-19 11:36] LABS: Basophils % 0.3 % (0.0-0.8); Eosinophils # 0.1 10*3/uL (0.0-0.87); Hematocrit 21.7 VOL% (35.7-47.0); Hemoglobin 6.7 GM/DL (12.0-16.0); Immature Granulocytes % 1.9 %; Immature Granulocytes Absolute 0.25 #; Lymphocytes # 1.3 10*3/uL (1.4-4.0); Lymphocytes % 9.7 % (21.3-54.2); Mean Corpuscular HGB Conc 30.9 GM/DL (32-36); Mean Corpuscular Volume 97.7 FL (87-102); Mean Platelet Volume 9.3 FL (9.6-12.0); Monocytes % 10.3 % (1.7-12.7); NRBC # 0.07 10*3/uL; Neutrophils % 76.8 % (38.7-73.9); Platelet Count 172 T/CUMM (130-400); Red Blood Count 2.22 MC/CUMM (3.8-5.5); Red Cell Distribution Width 18.9 % (9.3-17.3); White Blood Count 12.9 T/CUMM (4-12)
[2019-02-19] MEDS ORDERED: GLUCAGON 1 MG VIAL IM PRN (11:43)
[2019-02-19] MEDS ORDERED: ONDANSETRON 4 MG/2 ML VIAL IV PRN (11:43)
[2019-02-19] MEDS ORDERED: DEXTROSE 50% 25 GM/50 ML VIAL IV PRN (11:43)
[2019-02-19] MEDS ORDERED: ACETAMINOPHEN 325 MG TABLET PO PRN (11:43)
[2019-02-19 11:48] LABS: PT Patient Result 10.5 SECS; Partial Thromboplastin Time 28.9 SECS (0-40)
[2019-02-19 11:55] LABS: Albumin 1.7 G/DL (3.4-5.0); Bilirubin,Total 0.8 MG/DL (0.2-1.0); Calcium 8.7 MG/DL (8.5-10.1); Osmolality,Calculated 295.1 MOS/KG (273-304); Total Protein 5.8 G/DL (6.4-8.3)
[2019-02-19] MEDS ORDERED: SODIUM CHLORIDE 0.9% 1,000 ML IV PRN (12:11)
[2019-02-19] MEDS ORDERED: OXYMETAZOLINE 0.05% NASAL SPRAY 15 ML BOTTLE ONE NARE PRN (16:19)
[2019-02-19] MEDS ORDERED: ALBUTEROL 2.5 MG/3 ML NEB RESP TX PRN (16:19)
[2019-02-19] MEDS: SUCRALFATE 1 GM TABLET PO SCH ×2 (16:42→21:10)
[2019-02-19] MEDS: INSULIN LISPRO 100 UNIT/ML SUBCUT SCH ×2 (16:42→21:39)
[2019-02-19 19:46] LABS: Hemoglobin 8.6 GM/DL (12.0-16.0)
[2019-02-19] MEDS: PIPERACILLIN/TAZOBACTAM 3,375 MG in SODIUM CHLORIDE 0.9% 100 ML IV SCH ×2 (21:09→23:54)
[2019-02-19] MEDS: ASCORBIC ACID 500 MG TABLET PO SCH (21:09)
[2019-02-19] MEDS: DOCUSATE/SENNA 50-8.6 MG TABLET PO SCH (21:10)
[2019-02-19] MEDS: PANTOPRAZOLE 40 MG TABLET PO SCH (21:10)
[2019-02-19] MEDS: ATORVASTATIN 80 MG TABLET PO SCH (21:10)
[2019-02-19] MEDS: CLOTRIMAZOLE 1% CREAM 15 GM TUBE TOP SCH (21:11)
[2019-02-19] MEDS ORDERED: diphenhydrAMINE CAP 25 MG CAPSULE PO ONE (21:45)
[2019-02-20 06:08] LABS: Basophils % 0.3 % (0.0-0.8); Eosinophils # 0.2 10*3/uL (0.0-0.87); Eosinophils % 1.5 % (0.00-10.9); Hematocrit 24.3 VOL% (35.7-47.0); Hemoglobin 7.9 GM/DL (12.0-16.0); Immature Granulocytes % 1.6 %; Immature Granulocytes Absolute 0.17 #; Lymphocytes # 0.9 10*3/uL (1.4-4.0); Lymphocytes % 8.6 % (21.3-54.2); Mean Corpuscular HGB Conc 32.5 GM/DL (32-36); Mean Corpuscular Volume 93.5 FL (87-102); Monocytes % 10.4 % (1.7-12.7); NRBC # 0.08 10*3/uL; Neutrophils % 77.6 % (38.7-73.9); Platelet Count 166 T/CUMM (130-400); Red Cell Distribution Width 19.1 % (9.3-17.3); White Blood Count 10.5 T/CUMM (4-12)
[2019-02-20 06:47] LABS: Calcium 8.2 MG/DL (8.5-10.1); Osmolality,Calculated 286.4 MOS/KG (273-304); Thyroid Stimulating Hormone 1.23 uIU/ml (0.358-3.74); VLDL CHOLESTEROL 23.2 MG/DL
[2019-02-20] MEDS: INSULIN LISPRO 100 UNIT/ML SUBCUT SCH ×4 (07:55→22:39)
[2019-02-20] MEDS: SUCRALFATE 1 GM TABLET PO SCH ×4 (07:55→22:38)
[2019-02-20] MEDS: DILTIAZEM CD 120 MG CAPSULE PO SCH (08:06)
[2019-02-20] MEDS: POLYETHYLENE GLYCOL POWDER 17 GM PACK PO SCH (08:06)
[2019-02-20] MEDS: ASCORBIC ACID 500 MG TABLET PO SCH ×2 (08:06→22:40)
[2019-02-20] MEDS: DOCUSATE/SENNA 50-8.6 MG TABLET PO SCH ×2 (08:06→22:39)
[2019-02-20] MEDS: CLOTRIMAZOLE 1% CREAM 15 GM TUBE TOP SCH ×2 (08:06→22:42)
[2019-02-20] MEDS: PANTOPRAZOLE 40 MG TABLET PO SCH ×2 (08:06→22:39)
[2019-02-20] MEDS: FLUCONAZOLE 100 MG TABLET PO SCH (08:06)
[2019-02-20] MEDS ORDERED: PANTOPRAZOLE 40 MG TABLET PO SCH (09:00)
[2019-02-20] MEDS ORDERED: fentaNYL 100 MCG/2 ML VIAL ONE (09:09)
[2019-02-20] MEDS ORDERED: PROPOFOL 200 MG/20 ML VIAL IV ONE (09:38)
[2019-02-20] MEDS ORDERED: LIDOCAINE 1% 5 ML VIAL ONE (09:38)
[2019-02-20] MEDS: PIPERACILLIN/TAZOBACTAM 3,375 MG in SODIUM CHLORIDE 0.9% 100 ML IV SCH ×2 (10:39→22:43)
[2019-02-20] MEDS: ZINC OXIDE PASTE 113 GM TUBE TOP SCH ×2 (13:57→23:02)
[2019-02-20] MEDS: ATORVASTATIN 80 MG TABLET PO SCH (22:39)
[2019-02-21 05:08] LABS: Basophils % 0.3 % (0.0-0.8); Eosinophils # 0.1 10*3/uL (0.0-0.87); Eosinophils % 1.5 % (0.00-10.9); Hematocrit 25.1 VOL% (35.7-47.0); Hemoglobin 7.7 GM/DL (12.0-16.0); Immature Granulocytes % 1.4 %; Immature Granulocytes Absolute 0.13 #; Lymphocytes % 10.8 % (21.3-54.2); Mean Corpuscular HGB Conc 30.7 GM/DL (32-36); Mean Corpuscular Volume 95.8 FL (87-102); Mean Platelet Volume 9.5 FL (9.6-12.0); Monocytes % 11.1 % (1.7-12.7); NRBC # 0.03 10*3/uL; Neutrophils % 74.9 % (38.7-73.9); Platelet Count 145 T/CUMM (130-400); Red Blood Count 2.62 MC/CUMM (3.8-5.5); Red Cell Distribution Width 19.1 % (9.3-17.3); White Blood Count 9.2 T/CUMM (4-12)
[2019-02-21 05:27] LABS: Calcium 8.2 MG/DL (8.5-10.1); Osmolality,Calculated 290.5 MOS/KG (273-304)
[2019-02-21] MEDS ORDERED: FAMOTIDINE 20 MG TABLET PO ONE (06:00)
[2019-02-21] MEDS ORDERED: LIDOCAINE 1%/EPI INJ 20 ML VIAL ONE (06:58)
[2019-02-21] MEDS ORDERED: LIDOCAINE 1% 20 ML VIAL ONE (06:58)
[2019-02-21] MEDS ORDERED: BUPIVACAINE 0.5% 50 ML VIAL ONE (06:58)
[2019-02-21] MEDS ORDERED: CALCIUM CHLORIDE 1,000 MG/10 ML VIAL IV ONE (08:13)
[2019-02-21] MEDS ORDERED: PROPOFOL 200 MG/20 ML VIAL IV ONE (08:13)
[2019-02-21] MEDS ORDERED: SEVOFLURANE 1 UNIT/15 MINUTE INH ONE (08:13)
[2019-02-21] MEDS ORDERED: MIDAZOLAM 2 MG/2 ML VIAL ONE (08:13)
[2019-02-21] MEDS ORDERED: ETOMIDATE 40 MG/20 ML VIAL IV ONE (08:14)
[2019-02-21] MEDS ORDERED: fentaNYL 100 MCG/2 ML VIAL ONE (08:14)
[2019-02-21] MEDS ORDERED: ACETAMINOPHEN 1,000 MG/100 ML VIAL IV ONE (08:14)
[2019-02-21] MEDS ORDERED: ONDANSETRON 4 MG/2 ML VIAL ONE (08:14)
[2019-02-21] MEDS ORDERED: DEXAMETHASONE 4 MG/1 ML VIAL ONE (08:14)
[2019-02-21] MEDS ORDERED: ePHEDrine 50 MG/ML AMP ONE (08:14)
[2019-02-21] MEDS ORDERED: PHENYLEPHRINE 1 MG/10 ML SYRINGE IV ONE (08:14)
[2019-02-21] MEDS: POLYETHYLENE GLYCOL POWDER 17 GM PACK PO SCH ×2 (09:00→10:28)
[2019-02-21] MEDS ORDERED: SODIUM CHLORIDE 0.9% 1,000 ML IV PRN (09:46)
[2019-02-21] MEDS: INSULIN LISPRO 100 UNIT/ML SUBCUT SCH ×4 (10:01→22:10)
[2019-02-21] MEDS: SUCRALFATE 1 GM TABLET PO SCH ×4 (10:04→22:08)
[2019-02-21] MEDS: CLOTRIMAZOLE 1% CREAM 15 GM TUBE TOP SCH ×2 (10:04→22:09)
[2019-02-21] MEDS: DILTIAZEM CD 120 MG CAPSULE PO SCH (10:28)
[2019-02-21] MEDS: DOCUSATE/SENNA 50-8.6 MG TABLET PO SCH ×2 (10:29→22:08)
[2019-02-21] MEDS: ASCORBIC ACID 500 MG TABLET PO SCH ×2 (10:29→22:08)
[2019-02-21] MEDS: PANTOPRAZOLE 40 MG TABLET PO SCH ×2 (10:29→22:08)
[2019-02-21] MEDS: FLUCONAZOLE 100 MG TABLET PO SCH (10:29)
[2019-02-21] MEDS: PIPERACILLIN/TAZOBACTAM 3,375 MG in SODIUM CHLORIDE 0.9% 100 ML IV SCH ×2 (10:29→22:14)
[2019-02-21 18:30] LABS: Hematocrit 32.5 VOL% (35.7-47.0)
[2019-02-21 18:34] LABS: Hemoglobin 10.4 GM/DL (12.0-16.0)
[2019-02-21] MEDS: ZINC OXIDE PASTE 113 GM TUBE TOP SCH ×2 (18:38→22:13)
[2019-02-21] MEDS: ATORVASTATIN 80 MG TABLET PO SCH (22:09)
[2019-02-22 06:44] LABS: Basophils % 0.2 % (0.0-0.8); Hematocrit 29.6 VOL% (35.7-47.0); Hemoglobin 9.5 GM/DL (12.0-16.0); Immature Granulocytes % 1.6 %; Immature Granulocytes Absolute 0.17 #; Lymphocytes # 0.6 10*3/uL (1.4-4.0); Lymphocytes % 5.8 % (21.3-54.2); Mean Corpuscular HGB Conc 32.1 GM/DL (32-36); Mean Corpuscular Volume 93.1 FL (87-102); Mean Platelet Volume 9.8 FL (9.6-12.0); Monocytes % 6.4 % (1.7-12.7); NRBC # 0.02 10*3/uL; Platelet Count 160 T/CUMM (130-400); Red Blood Count 3.18 MC/CUMM (3.8-5.5); Red Cell Distribution Width 18.7 % (9.3-17.3); White Blood Count 10.8 T/CUMM (4-12)
[2019-02-22 07:09] LABS: Calcium 8.4 MG/DL (8.5-10.1); Osmolality,Calculated 287.5 MOS/KG (273-304)
[2019-02-22] MEDS: DOCUSATE/SENNA 50-8.6 MG TABLET PO SCH ×2 (08:54→20:55)
[2019-02-22] MEDS: ASCORBIC ACID 500 MG TABLET PO SCH ×2 (08:54→20:55)
[2019-02-22] MEDS: DILTIAZEM CD 120 MG CAPSULE PO SCH (08:54)
[2019-02-22] MEDS: INSULIN LISPRO 100 UNIT/ML SUBCUT SCH ×4 (08:55→21:52)
[2019-02-22] MEDS: FLUCONAZOLE 100 MG TABLET PO SCH (08:55)
[2019-02-22] MEDS: PANTOPRAZOLE 40 MG TABLET PO SCH ×2 (08:55→20:55)
[2019-02-22] MEDS: PIPERACILLIN/TAZOBACTAM 3,375 MG in SODIUM CHLORIDE 0.9% 100 ML IV SCH ×2 (08:56→20:55)
[2019-02-22] MEDS: POLYETHYLENE GLYCOL POWDER 17 GM PACK PO SCH (08:56)
[2019-02-22] MEDS: ZINC OXIDE PASTE 113 GM TUBE TOP SCH ×2 (08:56→20:56)
[2019-02-22] MEDS: SUCRALFATE 1 GM TABLET PO SCH ×4 (08:56→20:55)
[2019-02-22] MEDS: CLOTRIMAZOLE 1% CREAM 15 GM TUBE TOP SCH ×2 (08:56→20:56)
[2019-02-22] MEDS ORDERED: ONDANSETRON 4 MG/2 ML VIAL IV PRN (18:00)
[2019-02-22] MEDS ORDERED: SEVOFLURANE 1 UNIT/15 MINUTE INH ONE (18:07)
[2019-02-22] MEDS ORDERED: PROPOFOL 200 MG/20 ML VIAL IV ONE (18:07)
[2019-02-22] MEDS: HYDROmorphone 2 MG/1 ML VIAL IV PRN ×2 (18:07→18:17)
[2019-02-22] MEDS ORDERED: SODIUM CHLORIDE 0.9% 100 ML IV ONE (18:08)
[2019-02-22] MEDS ORDERED: fentaNYL 100 MCG/2 ML VIAL ONE (18:08)
[2019-02-22] MEDS ORDERED: PHENYLEPHRINE 1 MG/10 ML SYRINGE IV ONE (18:08)
[2019-02-22] MEDS ORDERED: MIDAZOLAM 2 MG/2 ML VIAL ONE (18:08)
[2019-02-22] MEDS: ATORVASTATIN 80 MG TABLET PO SCH (20:55)
[2019-02-23 06:22] LABS: Basophils % 0.3 % (0.0-0.8); Eosinophils # 0.1 10*3/uL (0.0-0.87); Eosinophils % 0.9 % (0.00-10.9); Hematocrit 29.8 VOL% (35.7-47.0); Hemoglobin 9.1 GM/DL (12.0-16.0); Immature Granulocytes % 1.4 %; Immature Granulocytes Absolute 0.16 #; Lymphocytes # 0.9 10*3/uL (1.4-4.0); Lymphocytes % 7.5 % (21.3-54.2); Mean Corpuscular HGB Conc 30.5 GM/DL (32-36); Mean Corpuscular Volume 96.4 FL (87-102); Mean Platelet Volume 9.4 FL (9.6-12.0); Monocytes % 6.8 % (1.7-12.7); Neutrophils % 83.1 % (38.7-73.9); Platelet Count 159 T/CUMM (130-400); Red Blood Count 3.09 MC/CUMM (3.8-5.5); Red Cell Distribution Width 18.7 % (9.3-17.3); White Blood Count 11.4 T/CUMM (4-12)
[2019-02-23 06:39] LABS: Calcium 8.3 MG/DL (8.5-10.1); Osmolality,Calculated 286.8 MOS/KG (273-304)
[2019-02-23] MEDS: INSULIN LISPRO 100 UNIT/ML SUBCUT SCH ×4 (08:43→20:41)
[2019-02-23] MEDS: PANTOPRAZOLE 40 MG TABLET PO SCH ×2 (08:44→20:41)
[2019-02-23] MEDS: FLUCONAZOLE 100 MG TABLET PO SCH (08:44)
[2019-02-23] MEDS: DILTIAZEM CD 120 MG CAPSULE PO SCH (08:45)
[2019-02-23] MEDS: ASCORBIC ACID 500 MG TABLET PO SCH ×2 (08:45→20:41)
[2019-02-23] MEDS: DOCUSATE/SENNA 50-8.6 MG TABLET PO SCH ×2 (08:45→20:41)
[2019-02-23] MEDS: PIPERACILLIN/TAZOBACTAM 3,375 MG in SODIUM CHLORIDE 0.9% 100 ML IV SCH (08:47)
[2019-02-23] MEDS: POLYETHYLENE GLYCOL POWDER 17 GM PACK PO SCH (09:08)
[2019-02-23] MEDS: ZINC OXIDE PASTE 113 GM TUBE TOP SCH ×2 (09:08→20:42)
[2019-02-23] MEDS: CLOTRIMAZOLE 1% CREAM 15 GM TUBE TOP SCH ×2 (09:08→20:43)
[2019-02-23] MEDS: SUCRALFATE 1 GM TABLET PO SCH ×4 (10:56→20:41)
[2019-02-23] MEDS ORDERED: cefTRIAXone 1,000 MG in SODIUM CHLORIDE 0.9% 100 ML IV SCH (17:00)
[2019-02-23] MEDS ORDERED: cefTRIAXone 1,000 MG in SYRINGE 1 EACH IV SCH (18:00)
[2019-02-23] MEDS: ATORVASTATIN 80 MG TABLET PO SCH (20:41)
[2019-02-24 05:04] LABS: Basophils % 0.3 % (0.0-0.8); Eosinophils # 0.2 10*3/uL (0.0-0.87); Eosinophils % 1.7 % (0.00-10.9); Hematocrit 28.9 VOL% (35.7-47.0); Hemoglobin 9.1 GM/DL (12.0-16.0); Immature Granulocytes % 1.4 %; Immature Granulocytes Absolute 0.16 #; Lymphocytes # 0.9 10*3/uL (1.4-4.0); Lymphocytes % 7.8 % (21.3-54.2); Mean Corpuscular HGB Conc 31.5 GM/DL (32-36); Mean Corpuscular Volume 95.1 FL (87-102); Mean Platelet Volume 9.8 FL (9.6-12.0); Monocytes % 7.1 % (1.7-12.7); Neutrophils % 81.7 % (38.7-73.9); Platelet Count 168 T/CUMM (130-400); Red Blood Count 3.04 MC/CUMM (3.8-5.5); Red Cell Distribution Width 18.6 % (9.3-17.3); White Blood Count 11.8 T/CUMM (4-12)
[2019-02-24 05:40] LABS: Calcium 8.2 MG/DL (8.5-10.1); Osmolality,Calculated 290.7 MOS/KG (273-304)
[2019-02-24] MEDS: SUCRALFATE 1 GM TABLET PO SCH ×3 (07:53→15:39)
[2019-02-24] MEDS: INSULIN LISPRO 100 UNIT/ML SUBCUT SCH ×3 (07:53→15:39)
[2019-02-24] MEDS: DILTIAZEM CD 120 MG CAPSULE PO SCH (08:07)
[2019-02-24] MEDS: ZINC OXIDE PASTE 113 GM TUBE TOP SCH (08:08)
[2019-02-24] MEDS: DOCUSATE/SENNA 50-8.6 MG TABLET PO SCH (08:08)
[2019-02-24] MEDS: ASCORBIC ACID 500 MG TABLET PO SCH (08:08)
[2019-02-24] MEDS: POLYETHYLENE GLYCOL POWDER 17 GM PACK PO SCH (08:08)
[2019-02-24] MEDS: FLUCONAZOLE 100 MG TABLET PO SCH (08:08)
[2019-02-24] MEDS: PANTOPRAZOLE 40 MG TABLET PO SCH (08:08)
[2019-02-24] MEDS: CLOTRIMAZOLE 1% CREAM 15 GM TUBE TOP SCH (08:08)
[2019-02-24] MEDS ORDERED: cefTRIAXone 2,000 MG in SYRINGE 1 EACH IV SCH (10:00)
[2019-02-24] MEDS ORDERED: CLINDAMYCIN INJ 600 MG in PREMIX 1 EACH IV SCH (11:00)
[2019-02-24] MEDS ORDERED: SODIUM HYPOCHLORITE 0.25% IRR 1 APPLIC in IV BAG 1 EACH IRRIG PRN (11:13)
[2019-02-24] MEDS ORDERED: MORPHINE 4 MG/1 ML VIAL IV ONE (13:00)
[2019-02-24 16:31] VITALS: BP 109/51
== END 2019-02-24 16:55 | DRG 356 ==
LOC: EDBD → EDUNIT# → N.ED 09:11 → N.EDINP 11:14 → SUATTDRO 11:14 → N.5E 11:39
PROVIDERS: ADMIT Internal Medicine; ATTEND Family Medicine

== ENCOUNTER 2019-05-28 09:25 | Inpatient (IN) ==
[2019-05-28] MEDS ORDERED: ALBUTEROL 2.5 MG/3 ML NEB RESP TX PRN (11:43)
[2019-05-28] MEDS ORDERED: BISACODYL 5 MG TABLET PO PRN (11:43)
[2019-05-28] MEDS ORDERED: ONDANSETRON 4 MG/2 ML VIAL IV PRN (11:43)
[2019-05-28] MEDS ORDERED: GLUCAGON 1 MG VIAL IM PRN (13:58)
[2019-05-28] MEDS ORDERED: DEXTROSE 50% 25 GM/50 ML VIAL IV PRN (13:58)
[2019-05-28] MEDS: LACTULOSE 20 GM/30 ML UDCUP PO SCH ×2 (16:28→22:16)
[2019-05-28] MEDS ORDERED: SKIN HEALING OINT (AQUAPHOR) 50 GM TUBE TOP PRN (17:00)
[2019-05-28] MEDS: INSULIN REGULAR 100 UNIT/ML SUBCUT SCH ×2 (19:03→22:00)
[2019-05-28 19:38] LABS: Calcium 8.8 MG/DL (8.5-10.1)
[2019-05-28] MEDS: DESITIN 4OZ/NYSTATIN 15 GRAM MIXTURE PASTE TOP SCH (22:16)
[2019-05-29 06:37] LABS: Basophils # 0.1 10*3/uL (0.0-0.2); Basophils % 0.6 % (0.0-0.8); Eosinophils # 0.2 10*3/uL (0.0-0.87); Eosinophils % 1.5 % (0.00-10.9); Hematocrit 33.5 VOL% (35.7-47.0); Immature Granulocytes % 0.3 %; Immature Granulocytes Absolute 0.03 #; Lymphocytes # 2.2 10*3/uL (1.4-4.0); Lymphocytes % 21.5 % (21.3-54.2); Mean Corpuscular HGB Conc 29.9 GM/DL (32-36); Mean Corpuscular Volume 97.1 FL (87-102); Mean Platelet Volume 10.1 FL (9.6-12.0); Monocytes % 12.9 % (1.7-12.7); NRBC # 0.02 10*3/uL; Neutrophils % 63.2 % (38.7-73.9); Platelet Count 135 T/CUMM (130-400); Red Blood Count 3.45 MC/CUMM (3.8-5.5); Red Cell Distribution Width 18.2 % (9.3-17.3); White Blood Count 10.1 T/CUMM (4-12)
[2019-05-29 06:59] LABS: Albumin 2.5 G/DL (3.4-5.0); Bilirubin,Total 1.2 MG/DL (0.2-1.0); Calcium 9.1 MG/DL (8.5-10.1); Osmolality,Calculated 282.1 MOS/KG (273-304); Total Protein 6.1 G/DL (6.4-8.3)
[2019-05-29] MEDS: INSULIN REGULAR 100 UNIT/ML SUBCUT SCH ×4 (07:59→21:47)
[2019-05-29] MEDS: LACTULOSE 20 GM/30 ML UDCUP PO SCH ×3 (08:40→21:48)
[2019-05-29] MEDS: PANTOPRAZOLE 40 MG TABLET PO SCH (08:40)
[2019-05-29] MEDS: DESITIN 4OZ/NYSTATIN 15 GRAM MIXTURE PASTE TOP SCH ×2 (08:40→21:48)
[2019-05-29] MEDS: ACETAMINOPHEN 325 MG TABLET PO PRN (11:23)
[2019-05-30 05:08] LABS: Basophils # 0.1 10*3/uL (0.0-0.2); Basophils % 0.6 % (0.0-0.8); Eosinophils # 0.1 10*3/uL (0.0-0.87); Eosinophils % 1.7 % (0.00-10.9); Hematocrit 36.2 VOL% (35.7-47.0); Immature Granulocytes % 0.6 %; Immature Granulocytes Absolute 0.05 #; Lymphocytes # 1.1 10*3/uL (1.4-4.0); Lymphocytes % 13.9 % (21.3-54.2); Mean Corpuscular HGB Conc 30.4 GM/DL (32-36); Mean Corpuscular Volume 97.1 FL (87-102); Mean Platelet Volume 9.9 FL (9.6-12.0); Monocytes % 9.4 % (1.7-12.7); Neutrophils % 73.8 % (38.7-73.9); Platelet Count 146 T/CUMM (130-400); Red Blood Count 3.73 MC/CUMM (3.8-5.5); Red Cell Distribution Width 17.9 % (9.3-17.3); White Blood Count 8.2 T/CUMM (4-12)
[2019-05-30 05:28] LABS: Calcium 8.7 MG/DL (8.5-10.1); Osmolality,Calculated 285.3 MOS/KG (273-304)
[2019-05-30] MEDS: PANTOPRAZOLE 40 MG TABLET PO SCH (09:05)
[2019-05-30] MEDS: INSULIN REGULAR 100 UNIT/ML SUBCUT SCH ×2 (09:05→11:43)
[2019-05-30] MEDS: LACTULOSE 20 GM/30 ML UDCUP PO SCH (09:05)
[2019-05-30] MEDS: DESITIN 4OZ/NYSTATIN 15 GRAM MIXTURE PASTE TOP SCH (09:06)
[2019-05-30] MEDS: ACETAMINOPHEN 325 MG TABLET PO PRN (09:11)
[2019-05-30 12:09] VITALS: BP 112/53
== END 2019-05-30 15:40 | disposition home health service (06) | DRG 642 ==
LOC: N.ICU 09:46 → SUATTDRO 11:54 → N.5E 18:55
PROVIDERS: ADMIT Internal Medicine; ATTEND Internal Medicine

== ENCOUNTER 2019-06-25 18:06 | Inpatient (IN) ==
[2019-06-25] MEDS ORDERED: INFLUENZA VIRUS VACCINE 0.5 ML SYRINGE IM ONE (21:13)
[2019-06-25] MEDS ORDERED: ALBUTEROL 2.5 MG/3 ML NEB RESP TX PRN (22:46)
[2019-06-25] MEDS ORDERED: ONDANSETRON 4 MG/2 ML VIAL IV PRN (22:46)
[2019-06-25] MEDS ORDERED: LACTULOSE 320 GM/480 ML BOTTLE PO SCH (23:00)
[2019-06-25] MEDS ORDERED: PIPERACILLIN/TAZOBACTAM 3,375 MG in SODIUM CHLORIDE 0.9% 100 ML IV SCH (23:00)
[2019-06-25] MEDS: PANTOPRAZOLE 40 MG TABLET PO SCH (23:44)
[2019-06-25] MEDS: LACTULOSE 20 GM/30 ML UDCUP PO SCH (23:44)
[2019-06-26] MEDS ORDERED: GLUCAGON 1 MG VIAL IM PRN (00:46)
[2019-06-26] MEDS ORDERED: DEXTROSE 50% 25 GM/50 ML VIAL IV PRN (00:46)
[2019-06-26] MEDS: INSULIN GLARGINE 100 UNIT/ML SUBCUT SCH ×3 (00:53→20:44)
[2019-06-26 03:05] LABS: Basophils # 0.1 10*3/uL (0.0-0.2); Basophils % 0.8 % (0.0-0.8); Eosinophils # 0.2 10*3/uL (0.0-0.87); Eosinophils % 2.1 % (0.00-10.9); Hemoglobin 11.7 GM/DL (12.0-16.0); Immature Granulocytes % 0.6 %; Immature Granulocytes Absolute 0.05 #; Lymphocytes # 1.4 10*3/uL (1.4-4.0); Lymphocytes % 16.2 % (21.3-54.2); Mean Corpuscular HGB Conc 30.8 GM/DL (32-36); Mean Corpuscular Volume 90.7 FL (87-102); Monocytes % 8.9 % (1.7-12.7); Neutrophils % 71.4 % (38.7-73.9); Platelet Count 193 T/CUMM (130-400); Red Blood Count 4.19 MC/CUMM (3.8-5.5); Red Cell Distribution Width 15.3 % (9.3-17.3); White Blood Count 8.9 T/CUMM (4-12)
[2019-06-26 03:08] LABS: PT Patient Result 10.9 SECS (9.6-12.2)
[2019-06-26 03:18] LABS: Calcium 9.3 MG/DL (8.5-10.1); Osmolality,Calculated 292.4 MOS/KG (273-304)
[2019-06-26 04:20] LABS: ABG Base Excess 2.2 MMOL/L (-2.5-2.5); ABG HCO3 26.3 MMOL/L (20-26); ABG Oxygen Saturation 93.6 % (95-100); ABG PCO2 40.1 MM HG (35-48); ABG TCO2 23.7 MMOL/L (23-27); Allen Test Positive
[2019-06-26 06:04] LABS: Thyroid Stimulating Hormone 0.417 uIU/ml (0.358-3.74)
[2019-06-26] MEDS: INSULIN LISPRO 100 UNIT/ML SUBCUT SCH ×4 (07:41→20:39)
[2019-06-26] MEDS: SUCRALFATE 1 GM TABLET PO SCH ×4 (08:17→20:28)
[2019-06-26] MEDS: SEVELAMER CARBONATE 800 MG TABLET PO SCH ×3 (08:17→16:49)
[2019-06-26] MEDS: APIXABAN 5 MG TABLET PO SCH ×2 (09:19→20:28)
[2019-06-26] MEDS: PANTOPRAZOLE 40 MG TABLET PO SCH ×2 (09:19→20:28)
[2019-06-26] MEDS: ASCORBIC ACID 500 MG TABLET PO SCH ×2 (09:19→20:27)
[2019-06-26] MEDS: ASPIRIN CHEW 81 MG TABLET PO SCH (09:20)
[2019-06-26] MEDS: METOPROLOL TARTRATE 25 MG TABLET PO SCH (09:20)
[2019-06-26] MEDS: LACTULOSE 20 GM/30 ML UDCUP PO SCH ×4 (09:20→23:04)
[2019-06-26] MEDS: DILTIAZEM CD 120 MG CAPSULE PO SCH (09:20)
[2019-06-26] MEDS: COLLAGENASE OINT 30 GM TUBE TOP SCH (09:21)
[2019-06-26] MEDS: CLOTRIMAZOLE 1% CREAM 15 GM TUBE TOP SCH ×2 (09:21→22:58)
[2019-06-26] MEDS: POLYETHYLENE GLYCOL POWDER 17 GM PACK PO SCH (09:21)
[2019-06-26] MEDS: ATORVASTATIN 80 MG TABLET PO SCH (20:28)
[2019-06-26] MEDS: ACETAMINOPHEN 325 MG TABLET PO PRN (23:04)
[2019-06-27 03:59] LABS: Basophils % 0.5 % (0.0-0.8); Eosinophils # 0.2 10*3/uL (0.0-0.87); Eosinophils % 3.2 % (0.00-10.9); Hemoglobin 10.5 GM/DL (12.0-16.0); Immature Granulocytes % 0.4 %; Immature Granulocytes Absolute 0.03 #; Lymphocytes # 1.2 10*3/uL (1.4-4.0); Lymphocytes % 15.8 % (21.3-54.2); Mean Corpuscular HGB Conc 30.9 GM/DL (32-36); Mean Corpuscular Volume 91.2 FL (87-102); Mean Platelet Volume 9.8 FL (9.6-12.0); Monocytes % 8.8 % (1.7-12.7); Neutrophils % 71.3 % (38.7-73.9); Platelet Count 174 T/CUMM (130-400); Red Blood Count 3.73 MC/CUMM (3.8-5.5); Red Cell Distribution Width 15.4 % (9.3-17.3); White Blood Count 7.6 T/CUMM (4-12)
[2019-06-27 04:12] LABS: Calcium 8.9 MG/DL (8.5-10.1); Osmolality,Calculated 296.4 MOS/KG (273-304)
[2019-06-27] MEDS: LACTULOSE 20 GM/30 ML UDCUP PO SCH ×4 (06:37→23:14)
[2019-06-27] MEDS: INSULIN LISPRO 100 UNIT/ML SUBCUT SCH ×4 (07:52→21:06)
[2019-06-27] MEDS: POLYETHYLENE GLYCOL POWDER 17 GM PACK PO SCH (08:30)
[2019-06-27] MEDS: ASCORBIC ACID 500 MG TABLET PO SCH ×2 (08:30→21:36)
[2019-06-27] MEDS: DILTIAZEM CD 120 MG CAPSULE PO SCH (08:30)
[2019-06-27] MEDS: APIXABAN 5 MG TABLET PO SCH ×2 (08:30→21:34)
[2019-06-27] MEDS: PANTOPRAZOLE 40 MG TABLET PO SCH ×2 (08:30→21:35)
[2019-06-27] MEDS: SUCRALFATE 1 GM TABLET PO SCH ×4 (08:30→21:36)
[2019-06-27] MEDS: SEVELAMER CARBONATE 800 MG TABLET PO SCH ×3 (08:30→17:59)
[2019-06-27] MEDS: METOPROLOL TARTRATE 25 MG TABLET PO SCH (08:30)
[2019-06-27] MEDS: COLLAGENASE OINT 30 GM TUBE TOP SCH (08:31)
[2019-06-27] MEDS: CLOTRIMAZOLE 1% CREAM 15 GM TUBE TOP SCH ×2 (08:31→21:36)
[2019-06-27] MEDS: INSULIN GLARGINE 100 UNIT/ML SUBCUT SCH ×2 (08:51→21:05)
[2019-06-27] MEDS: ASPIRIN CHEW 81 MG TABLET PO SCH (08:53)
[2019-06-27] MEDS: ACETAMINOPHEN 325 MG TABLET PO PRN ×2 (14:34→23:15)
[2019-06-27] MEDS: DESITIN 4OZ/NYSTATIN 15 GRAM MIXTURE PASTE TOP SCH ×2 (17:59→21:36)
[2019-06-27] MEDS: ATORVASTATIN 80 MG TABLET PO SCH (21:35)
[2019-06-28 04:53] LABS: Basophils % 0.4 % (0.0-0.8); Eosinophils # 0.3 10*3/uL (0.0-0.87); Hematocrit 35.9 VOL% (35.7-47.0); Hemoglobin 11.1 GM/DL (12.0-16.0); Immature Granulocytes % 0.4 %; Immature Granulocytes Absolute 0.03 #; Lymphocytes # 1.1 10*3/uL (1.4-4.0); Lymphocytes % 13.4 % (21.3-54.2); Mean Corpuscular HGB Conc 30.9 GM/DL (32-36); Mean Platelet Volume 10.3 FL (9.6-12.0); Monocytes % 8.9 % (1.7-12.7); Neutrophils % 72.9 % (38.7-73.9); Platelet Count 212 T/CUMM (130-400); Red Blood Count 3.99 MC/CUMM (3.8-5.5); Red Cell Distribution Width 15.1 % (9.3-17.3); White Blood Count 7.9 T/CUMM (4-12)
[2019-06-28 05:18] LABS: Calcium 9.3 MG/DL (8.5-10.1); Osmolality,Calculated 287.5 MOS/KG (273-304)
[2019-06-28] MEDS: LACTULOSE 20 GM/30 ML UDCUP PO SCH ×4 (06:20→23:41)
[2019-06-28] MEDS: DILTIAZEM CD 120 MG CAPSULE PO SCH (09:45)
[2019-06-28] MEDS: APIXABAN 5 MG TABLET PO SCH ×2 (09:45→21:48)
[2019-06-28] MEDS: POLYETHYLENE GLYCOL POWDER 17 GM PACK PO SCH (09:45)
[2019-06-28] MEDS: ASCORBIC ACID 500 MG TABLET PO SCH ×2 (09:45→21:47)
[2019-06-28] MEDS: SUCRALFATE 1 GM TABLET PO SCH ×4 (09:46→21:47)
[2019-06-28] MEDS: SEVELAMER CARBONATE 800 MG TABLET PO SCH ×3 (09:46→16:40)
[2019-06-28] MEDS: PANTOPRAZOLE 40 MG TABLET PO SCH ×2 (09:46→21:47)
[2019-06-28] MEDS: ASPIRIN CHEW 81 MG TABLET PO SCH (09:46)
[2019-06-28] MEDS: METOPROLOL TARTRATE 25 MG TABLET PO SCH (09:46)
[2019-06-28] MEDS: INSULIN LISPRO 100 UNIT/ML SUBCUT SCH ×4 (09:46→21:48)
[2019-06-28] MEDS: INSULIN GLARGINE 100 UNIT/ML SUBCUT SCH ×2 (09:46→21:49)
[2019-06-28] MEDS: COLLAGENASE OINT 30 GM TUBE TOP SCH (09:54)
[2019-06-28] MEDS: CLOTRIMAZOLE 1% CREAM 15 GM TUBE TOP SCH ×2 (09:54→21:30)
[2019-06-28] MEDS: DESITIN 4OZ/NYSTATIN 15 GRAM MIXTURE PASTE TOP SCH ×2 (09:54→21:30)
[2019-06-28] MEDS: ACETAMINOPHEN 325 MG TABLET PO PRN (21:46)
[2019-06-28] MEDS: ATORVASTATIN 80 MG TABLET PO SCH (21:52)
[2019-06-29] MEDS: LACTULOSE 20 GM/30 ML UDCUP PO SCH ×2 (05:55→13:20)
[2019-06-29] MEDS: ASPIRIN CHEW 81 MG TABLET PO SCH (08:21)
[2019-06-29] MEDS: ASCORBIC ACID 500 MG TABLET PO SCH (08:21)
[2019-06-29] MEDS: SEVELAMER CARBONATE 800 MG TABLET PO SCH ×2 (08:21→13:20)
[2019-06-29] MEDS: SUCRALFATE 1 GM TABLET PO SCH ×2 (08:21→13:20)
[2019-06-29] MEDS: APIXABAN 5 MG TABLET PO SCH (08:21)
[2019-06-29] MEDS: PANTOPRAZOLE 40 MG TABLET PO SCH (08:21)
[2019-06-29] MEDS: POLYETHYLENE GLYCOL POWDER 17 GM PACK PO SCH (08:22)
[2019-06-29] MEDS: COLLAGENASE OINT 30 GM TUBE TOP SCH (08:23)
[2019-06-29] MEDS: CLOTRIMAZOLE 1% CREAM 15 GM TUBE TOP SCH (08:23)
[2019-06-29] MEDS: DESITIN 4OZ/NYSTATIN 15 GRAM MIXTURE PASTE TOP SCH (08:23)
[2019-06-29] MEDS: DILTIAZEM CD 120 MG CAPSULE PO SCH (08:33)
[2019-06-29] MEDS: METOPROLOL TARTRATE 25 MG TABLET PO SCH (08:34)
[2019-06-29] MEDS: INSULIN GLARGINE 100 UNIT/ML SUBCUT SCH (08:34)
[2019-06-29] MEDS: INSULIN LISPRO 100 UNIT/ML SUBCUT SCH ×2 (10:32→13:20)
[2019-06-29 16:32] VITALS: BP 125/67
== END 2019-06-29 16:29 | disposition home or self-care (01) | DRG 291 ==
LOC: SUATTDRO 20:32 → N.ICU 20:32 → N.5E 06-27 15:41
PROVIDERS: ADMIT Internal Medicine; ATTEND Internal Medicine

== ENCOUNTER 2019-10-01 01:46 | Inpatient (IN) ==
[2019-10-01] MEDS ORDERED: KETOROLAC 30 MG/1 ML VIAL IV STA (02:02)
[2019-10-01 02:27] LABS: Basophils # 0.1 10*3/uL (0.0-0.2); Basophils % 0.6 % (0.0-0.8); Eosinophils # 0.2 10*3/uL (0.0-0.87); Eosinophils % 2.7 % (0.00-10.9); Hematocrit 32.3 VOL% (35.7-47.0); Hemoglobin 9.9 GM/DL (12.0-16.0); Immature Granulocytes % 0.5 %; Immature Granulocytes Absolute 0.04 #; Lymphocytes % 11.5 % (21.3-54.2); Mean Corpuscular HGB Conc 30.7 GM/DL (32-36); Mean Corpuscular Volume 96.4 FL (87-102); Mean Platelet Volume 9.6 FL (9.6-12.0); Monocytes % 11.9 % (1.7-12.7); Neutrophils % 72.8 % (38.7-73.9); Platelet Count 163 T/CUMM (130-400); Red Blood Count 3.35 MC/CUMM (3.8-5.5); Red Cell Distribution Width 16.8 % (9.3-17.3); White Blood Count 8.7 T/CUMM (4-12)
[2019-10-01 02:42] LABS: Albumin 2.3 G/DL (3.4-5.0); Calcium 8.1 MG/DL (8.5-10.1); Osmolality,Calculated 278.8 MOS/KG (273-304); Total Protein 6.7 G/DL (6.4-8.3)
[2019-10-01] MEDS ORDERED: VANCOMYCIN INJ 500 MG in SODIUM CHLORIDE 0.9% 100 ML IV PRN (03:42)
[2019-10-01] MEDS ORDERED: ONDANSETRON 4 MG/2 ML VIAL IV PRN (04:30)
[2019-10-01] MEDS ORDERED: DOCUSATE SODIUM 100 MG CAPSULE PO PRN (04:30)
[2019-10-01] MEDS: PIPERACILLIN/TAZOBACTAM 3,375 MG in SODIUM CHLORIDE 0.9% 100 ML IV SCH ×2 (04:45→17:27)
[2019-10-01] MEDS ORDERED: VANCOMYCIN INJ 1,500 MG in SODIUM CHLORIDE 0.9% 500 ML IV ONE (09:00)
[2019-10-01] MEDS ORDERED: DEXTROSE 10% 25 GM/250 ML BAG IV PRN (10:15)
[2019-10-01] MEDS ORDERED: GLUCAGON 1 MG VIAL IM PRN (10:15)
[2019-10-02] MEDS: ACETAMINOPHEN 325 MG TABLET PO PRN (00:07)
[2019-10-02] MEDS: PIPERACILLIN/TAZOBACTAM 3,375 MG in SODIUM CHLORIDE 0.9% 100 ML IV SCH ×2 (03:50→17:21)
[2019-10-02 07:20] LABS: Basophils % 0.3 % (0.0-0.8); Eosinophils # 0.3 10*3/uL (0.0-0.87); Eosinophils % 3.8 % (0.00-10.9); Hematocrit 33.5 VOL% (35.7-47.0); Hemoglobin 10.1 GM/DL (12.0-16.0); Immature Granulocytes % 0.6 %; Immature Granulocytes Absolute 0.05 #; Lymphocytes # 0.5 10*3/uL (1.4-4.0); Mean Corpuscular HGB Conc 30.1 GM/DL (32-36); Mean Platelet Volume 9.8 FL (9.6-12.0); Monocytes % 8.7 % (1.7-12.7); Neutrophils % 80.6 % (38.7-73.9); Platelet Count 160 T/CUMM (130-400); Red Blood Count 3.42 MC/CUMM (3.8-5.5); Red Cell Distribution Width 16.9 % (9.3-17.3); White Blood Count 8.7 T/CUMM (4-12)
[2019-10-02 07:36] LABS: Calcium 7.9 MG/DL (8.5-10.1); Osmolality,Calculated 288.4 MOS/KG (273-304)
[2019-10-02] MEDS ORDERED: SODIUM CHLORIDE 0.9% 1,000 ML IV PRN (13:13)
[2019-10-02] MEDS ORDERED: VASOPRESSIN 20 UNITS/ML VIAL ONE (13:15)
[2019-10-02] MEDS ORDERED: LIDOCAINE 2% 5 ML VIAL ONE (13:49)
[2019-10-02] MEDS ORDERED: propofoL 200 MG/20 ML VIAL IV ONE (13:49)
[2019-10-02] MEDS ORDERED: fentaNYL 100 MCG/2 ML VIAL ONE (13:50)
[2019-10-02] MEDS ORDERED: PHENYLEPHRINE DRIP 20 MG/250 ML PREMIX IV ONE (13:50)
[2019-10-02] MEDS ORDERED: SEVOFLURANE 1 UNIT/15 MINUTE INH ONE (13:50)
[2019-10-02] MEDS ORDERED: EPINEPHrine 1 MG/ML VIAL ONE (13:50)
[2019-10-02] MEDS ORDERED: MIDAZOLAM 2 MG/2 ML VIAL ONE (13:50)
[2019-10-02] MEDS ORDERED: SODIUM CHLORIDE 0.9% 100 ML IV ONE (13:51)
[2019-10-02] MEDS ORDERED: PHENYLEPHRINE 1 MG/10 ML SYRINGE IV ONE (13:51)
[2019-10-02] MEDS ORDERED: EPINEPHrine 1 MG/10 ML SYRINGE ONE (13:54)
[2019-10-02] MEDS: HYDROmorphone 2 MG/1 ML VIAL IV PRN ×3 (14:28→20:24)
[2019-10-02 17:14] LABS: Hematocrit 30.8 VOL% (35.7-47.0); Hemoglobin 9.2 GM/DL (12.0-16.0)
[2019-10-02] MEDS ORDERED: HEPARIN 10,000 UNIT/10 ML VIAL IV SCH (19:00)
[2019-10-02 19:32] LABS: Hepatitis B Surface Ag Quant < 0.10 Index; Hepatitis B Surface Ag Result Negative (Negative)
[2019-10-03] MEDS: HYDROmorphone 2 MG/1 ML VIAL IV PRN ×6 (03:07→16:47)
[2019-10-03] MEDS: PIPERACILLIN/TAZOBACTAM 3,375 MG in SODIUM CHLORIDE 0.9% 100 ML IV SCH ×3 (03:28→18:28)
[2019-10-03 07:19] LABS: Basophils # 0.1 10*3/uL (0.0-0.2); Basophils % 0.5 % (0.0-0.8); Eosinophils # 0.3 10*3/uL (0.0-0.87); Eosinophils % 2.7 % (0.00-10.9); Hematocrit 32.7 VOL% (35.7-47.0); Hemoglobin 9.6 GM/DL (12.0-16.0); Immature Granulocytes % 0.8 %; Immature Granulocytes Absolute 0.08 #; Lymphocytes # 0.9 10*3/uL (1.4-4.0); Lymphocytes % 9.4 % (21.3-54.2); Mean Corpuscular HGB Conc 29.4 GM/DL (32-36); Mean Corpuscular Volume 100.3 FL (87-102); Mean Platelet Volume 9.7 FL (9.6-12.0); Monocytes % 13.2 % (1.7-12.7); Neutrophils % 73.4 % (38.7-73.9); Platelet Count 173 T/CUMM (130-400); Red Blood Count 3.26 MC/CUMM (3.8-5.5); White Blood Count 9.7 T/CUMM (4-12)
[2019-10-03 07:38] LABS: Albumin 2.2 G/DL (3.4-5.0); Bilirubin,Total 1.1 MG/DL (0.2-1.0); Calcium 8.4 MG/DL (8.5-10.1); Osmolality,Calculated 272.1 MOS/KG (273-304); Total Protein 6.8 G/DL (6.4-8.3)
[2019-10-03] MEDS ORDERED: HYDROmorphone 2 MG/1 ML VIAL IV PRN (11:12)
[2019-10-03] MEDS ORDERED: TUBERCULIN SKIN TEST 0.1 ML SYRINGE INTRADERM ONE (11:47)
[2019-10-03] MEDS ORDERED: VANCOMYCIN INJ 500 MG in SODIUM CHLORIDE 0.9% 100 ML IV ONE (17:00)
[2019-10-03] MEDS: ATORVASTATIN 80 MG TABLET PO SCH (20:09)
[2019-10-03] MEDS: SUCRALFATE 1 GM TABLET PO SCH (20:09)
[2019-10-03] MEDS: LACTULOSE 20 GM/30 ML UDCUP PO SCH (20:09)
[2019-10-03] MEDS: GABAPENTIN 100 MG CAPSULE PO SCH (20:09)
[2019-10-03] MEDS: ASCORBIC ACID 500 MG TABLET PO SCH (20:09)
[2019-10-03] MEDS: CLOTRIMAZOLE 1% CREAM 15 GM TUBE TOP SCH (20:09)
[2019-10-04] MEDS: PIPERACILLIN/TAZOBACTAM 3,375 MG in SODIUM CHLORIDE 0.9% 100 ML IV SCH ×2 (06:21→20:30)
[2019-10-04] MEDS: Ferric Citrate [Auryxia] 210 MG PO SCH ×3 (08:00→16:21)
[2019-10-04] MEDS: SEVELAMER CARBONATE 800 MG TABLET PO SCH ×3 (08:25→16:54)
[2019-10-04] MEDS: LACTULOSE 20 GM/30 ML UDCUP PO SCH (08:25)
[2019-10-04] MEDS: ASCORBIC ACID 500 MG TABLET PO SCH ×2 (08:25→20:29)
[2019-10-04] MEDS: POLYETHYLENE GLYCOL POWDER 17 GM PACK PO SCH (08:26)
[2019-10-04] MEDS: METOPROLOL TARTRATE 25 MG TABLET PO SCH (08:26)
[2019-10-04] MEDS: SUCRALFATE 1 GM TABLET PO SCH ×4 (08:26→20:29)
[2019-10-04] MEDS ORDERED: DILTIAZEM CD 120 MG CAPSULE PO SCH (09:00)
[2019-10-04] MEDS: CLOTRIMAZOLE 1% CREAM 15 GM TUBE TOP SCH ×2 (09:34→20:30)
[2019-10-04] MEDS: COLLAGENASE OINT 30 GM TUBE TOP SCH (09:38)
[2019-10-04] MEDS ORDERED: SODIUM CHLORIDE 0.9% 250 ML IV SCH (14:00)
[2019-10-04] MEDS: GABAPENTIN 100 MG CAPSULE PO SCH (20:29)
[2019-10-04] MEDS: ATORVASTATIN 80 MG TABLET PO SCH (20:29)
[2019-10-05] MEDS: ACETAMINOPHEN 325 MG TABLET PO PRN (02:45)
[2019-10-05] MEDS ORDERED: SODIUM CHLORIDE 0.9% 250 ML IV ONE (04:29)
[2019-10-05] MEDS: SUCRALFATE 1 GM TABLET PO SCH ×4 (09:10→20:40)
[2019-10-05] MEDS: SEVELAMER CARBONATE 800 MG TABLET PO SCH ×3 (09:10→16:35)
[2019-10-05] MEDS: ASCORBIC ACID 500 MG TABLET PO SCH ×2 (09:10→20:40)
[2019-10-05] MEDS: POLYETHYLENE GLYCOL POWDER 17 GM PACK PO SCH (09:10)
[2019-10-05] MEDS: Ferric Citrate [Auryxia] 210 MG PO SCH ×3 (09:11→16:39)
[2019-10-05] MEDS: PIPERACILLIN/TAZOBACTAM 3,375 MG in SODIUM CHLORIDE 0.9% 100 ML IV SCH ×2 (09:11→20:40)
[2019-10-05] MEDS: METOPROLOL TARTRATE 25 MG TABLET PO SCH (09:12)
[2019-10-05 10:29] LABS: Calcium 8.1 MG/DL (8.5-10.1); Osmolality,Calculated 274.1 MOS/KG (273-304)
[2019-10-05] MEDS: COLLAGENASE OINT 30 GM TUBE TOP SCH (11:58)
[2019-10-05] MEDS: CLOTRIMAZOLE 1% CREAM 15 GM TUBE TOP SCH ×2 (11:58→20:45)
[2019-10-05] MEDS: GABAPENTIN 100 MG CAPSULE PO SCH (20:39)
[2019-10-05] MEDS: ATORVASTATIN 80 MG TABLET PO SCH (20:40)
[2019-10-06 05:44] LABS: Calcium 8.5 MG/DL (8.5-10.1); Osmolality,Calculated 274.2 MOS/KG (273-304)
[2019-10-06] MEDS: Ferric Citrate [Auryxia] 210 MG PO SCH ×3 (10:23→18:06)
[2019-10-06] MEDS: COLLAGENASE OINT 30 GM TUBE TOP SCH (10:24)
[2019-10-06] MEDS: METOPROLOL TARTRATE 25 MG TABLET PO SCH (10:24)
[2019-10-06] MEDS: CLOTRIMAZOLE 1% CREAM 15 GM TUBE TOP SCH ×3 (10:25→20:36)
[2019-10-06] MEDS: POLYETHYLENE GLYCOL POWDER 17 GM PACK PO SCH (10:28)
[2019-10-06] MEDS: SUCRALFATE 1 GM TABLET PO SCH ×4 (10:29→20:36)
[2019-10-06] MEDS: PIPERACILLIN/TAZOBACTAM 3,375 MG in SODIUM CHLORIDE 0.9% 100 ML IV SCH ×2 (10:29→23:27)
[2019-10-06] MEDS: SEVELAMER CARBONATE 800 MG TABLET PO SCH ×3 (10:29→16:30)
[2019-10-06] MEDS: ASCORBIC ACID 500 MG TABLET PO SCH ×2 (10:29→20:36)
[2019-10-06] MEDS ORDERED: VANCOMYCIN INJ 500 MG in SODIUM CHLORIDE 0.9% 100 ML IV ONE (17:00)
[2019-10-06] MEDS: GABAPENTIN 100 MG CAPSULE PO SCH (20:35)
[2019-10-06] MEDS: ATORVASTATIN 80 MG TABLET PO SCH (20:36)
[2019-10-07] MEDS: POLYETHYLENE GLYCOL POWDER 17 GM PACK PO SCH (08:41)
[2019-10-07] MEDS: Ferric Citrate [Auryxia] 210 MG PO SCH ×2 (08:44→14:44)
[2019-10-07] MEDS: SUCRALFATE 1 GM TABLET PO SCH ×3 (08:44→15:29)
[2019-10-07] MEDS: SEVELAMER CARBONATE 800 MG TABLET PO SCH ×2 (08:44→14:45)
[2019-10-07] MEDS: COLLAGENASE OINT 30 GM TUBE TOP SCH (08:45)
[2019-10-07] MEDS: METOPROLOL TARTRATE 25 MG TABLET PO SCH (08:45)
[2019-10-07] MEDS: CLOTRIMAZOLE 1% CREAM 15 GM TUBE TOP SCH (08:45)
[2019-10-07] MEDS: ASCORBIC ACID 500 MG TABLET PO SCH (08:45)
[2019-10-07] MEDS: ACETAMINOPHEN 325 MG TABLET PO PRN (09:02)
[2019-10-07 13:36] VITALS: BP 114/69
[2019-10-07] MEDS: PIPERACILLIN/TAZOBACTAM 3,375 MG in SODIUM CHLORIDE 0.9% 100 ML IV SCH (14:45)
== END 2019-10-07 15:53 | disposition swing bed (61) | DRG 239 ==
LOC: EDUNIT# → N.ED 01:46 → SUATTDRO 03:05 → N.EDINP 03:05 → N.2W 08:05 → N.ICU 10-02 13:19 → N.3E 10-04 12:35
PROVIDERS: ADMIT Internal Medicine; ATTEND Internal Medicine Geriatric Medicine

== ENCOUNTER 2020-01-23 02:44 | Inpatient (IN) ==
[2020-01-23 09:43] LABS: Basophils % 0.1 % (0.0-0.8); Hematocrit 33.6 VOL% (35.7-47.0); Hemoglobin 10.4 GM/DL (12.0-16.0); Immature Granulocytes % 0.8 %; Immature Granulocytes Absolute 0.09 #; Lymphocytes # 0.6 10*3/uL (1.4-4.0); Lymphocytes % 5.3 % (21.3-54.2); Mean Corpuscular Volume 93.9 FL (87-102); Mean Platelet Volume 9.8 FL (9.6-12.0); Monocytes % 4.4 % (1.7-12.7); NRBC # 0.07 10*3/uL; Neutrophils % 89.4 % (38.7-73.9); Platelet Count 208 T/CUMM (130-400); Red Blood Count 3.58 MC/CUMM (3.8-5.5); White Blood Count 11.6 T/CUMM (4-12)
[2020-01-23] MEDS ORDERED: ACETAMINOPHEN 325 MG TABLET PO PRN (09:48)
[2020-01-23] MEDS ORDERED: GLUCAGON 1 MG VIAL IM PRN (09:48)
[2020-01-23] MEDS ORDERED: ONDANSETRON 4 MG/2 ML VIAL IV PRN (09:48)
[2020-01-23 10:10] LABS: Albumin 3.1 G/DL (3.4-5.0); Bilirubin,Total 2.6 MG/DL (0.2-1.0); Osmolality,Calculated 274.4 MOS/KG (273-304); Total Protein 7.7 G/DL (6.4-8.3)
[2020-01-23] MEDS: DEXTROSE 10% 250 ML BAG IV PRN (10:12)
[2020-01-23 10:16] LABS: Ferritin 7434.8 ng/ml (8-252)
[2020-01-23] MEDS: HEPARIN 5,000 UNIT/1 ML VIAL SUBCUT SCH ×2 (12:48→21:05)
[2020-01-23] MEDS ORDERED: AZITHROMYCIN INJ 500 MG in SODIUM CHLORIDE 0.9% 250 ML IV SCH (14:00)
[2020-01-23] MEDS ORDERED: LACTULOSE 20 GM/30 ML UDCUP PO SCH (14:00)
[2020-01-23] MEDS: LACTULOSE 20 GM/30 ML UDCUP PO SCH ×2 (16:48→21:05)
[2020-01-23] MEDS: cefTRIAXone 1,000 MG in SYRINGE 1 EACH IV SCH (16:48)
[2020-01-23] MEDS: AZITHROMYCIN 250 MG TABLET PO SCH (16:48)
[2020-01-24] MEDS: HEPARIN 5,000 UNIT/1 ML VIAL SUBCUT SCH ×3 (04:42→20:00)
[2020-01-24 07:03] LABS: Basophils % 0.2 % (0.0-0.8); Eosinophils # 0.1 10*3/uL (0.0-0.87); Eosinophils % 0.5 % (0.00-10.9); Hemoglobin 10.1 GM/DL (12.0-16.0); Immature Granulocytes % 0.7 %; Immature Granulocytes Absolute 0.07 #; Lymphocytes # 0.9 10*3/uL (1.4-4.0); Lymphocytes % 9.1 % (21.3-54.2); Mean Corpuscular HGB Conc 30.6 GM/DL (32-36); Mean Corpuscular Volume 95.1 FL (87-102); Mean Platelet Volume 9.6 FL (9.6-12.0); Monocytes % 4.9 % (1.7-12.7); NRBC # 0.09 10*3/uL; Neutrophils % 84.6 % (38.7-73.9); Platelet Count 199 T/CUMM (130-400); Red Blood Count 3.47 MC/CUMM (3.8-5.5); Red Cell Distribution Width 22.2 % (9.3-17.3); White Blood Count 10.1 T/CUMM (4-12)
[2020-01-24 07:32] LABS: Calcium 9.6 MG/DL (8.5-10.1); Osmolality,Calculated 270.2 MOS/KG (273-304)
[2020-01-24] MEDS: cefTRIAXone 1,000 MG in SYRINGE 1 EACH IV SCH (09:04)
[2020-01-24] MEDS: AZITHROMYCIN 250 MG TABLET PO SCH (09:04)
[2020-01-24] MEDS: LACTULOSE 20 GM/30 ML UDCUP PO SCH ×2 (09:04→20:00)
[2020-01-25] MEDS: HEPARIN 5,000 UNIT/1 ML VIAL SUBCUT SCH ×3 (04:40→20:15)
[2020-01-25 06:29] LABS: Basophils % 0.1 % (0.0-0.8); Eosinophils % 0.4 % (0.00-10.9); Hematocrit 33.6 VOL% (35.7-47.0); Hemoglobin 10.2 GM/DL (12.0-16.0); Immature Granulocytes % 0.7 %; Immature Granulocytes Absolute 0.06 #; Lymphocytes # 0.6 10*3/uL (1.4-4.0); Lymphocytes % 6.1 % (21.3-54.2); Mean Corpuscular HGB Conc 30.4 GM/DL (32-36); Mean Corpuscular Volume 95.2 FL (87-102); Mean Platelet Volume 9.2 FL (9.6-12.0); Monocytes % 5.6 % (1.7-12.7); NRBC # 0.12 10*3/uL; Neutrophils % 87.1 % (38.7-73.9); Platelet Count 182 T/CUMM (130-400); Red Blood Count 3.53 MC/CUMM (3.8-5.5); Red Cell Distribution Width 22.8 % (9.3-17.3); White Blood Count 9.1 T/CUMM (4-12)
[2020-01-25 07:03] LABS: Calcium 9.1 MG/DL (8.5-10.1); Ferritin 6891.1 ng/ml (8-252); Osmolality,Calculated 263.2 MOS/KG (273-304)
[2020-01-25] MEDS: cefTRIAXone 1,000 MG in SYRINGE 1 EACH IV SCH (09:22)
[2020-01-25] MEDS: LACTULOSE 20 GM/30 ML UDCUP PO SCH ×2 (09:22→20:15)
[2020-01-25] MEDS: AZITHROMYCIN 250 MG TABLET PO SCH (09:22)
[2020-01-25 12:01] LABS: Hypochromasia 1+; Platelet Estimate Adequate; Polychromasia Few
[2020-01-26] MEDS: HEPARIN 5,000 UNIT/1 ML VIAL SUBCUT SCH ×2 (05:00→11:24)
[2020-01-26 06:16] LABS: Basophils % 0.2 % (0.0-0.8); Eosinophils # 0.1 10*3/uL (0.0-0.87); Hematocrit 33.6 VOL% (35.7-47.0); Hemoglobin 10.5 GM/DL (12.0-16.0); Immature Granulocytes % 1.4 %; Immature Granulocytes Absolute 0.12 #; Lymphocytes # 0.8 10*3/uL (1.4-4.0); Lymphocytes % 8.9 % (21.3-54.2); Mean Corpuscular HGB Conc 31.3 GM/DL (32-36); Mean Corpuscular Volume 94.4 FL (87-102); Mean Platelet Volume 9.1 FL (9.6-12.0); Monocytes % 5.6 % (1.7-12.7); NRBC # 0.29 10*3/uL; Neutrophils % 82.9 % (38.7-73.9); Platelet Count 183 T/CUMM (130-400); Red Blood Count 3.56 MC/CUMM (3.8-5.5); Red Cell Distribution Width 22.9 % (9.3-17.3); White Blood Count 8.4 T/CUMM (4-12)
[2020-01-26 06:43] LABS: Hypochromasia 1+; Microcytosis 1+; Ovalocytes Slight; Polychromasia Slight; Target Cells Slight
[2020-01-26 06:44] LABS: Platelet Estimate Adequate
[2020-01-26] MEDS: cefTRIAXone 1,000 MG in SYRINGE 1 EACH IV SCH (07:51)
[2020-01-26] MEDS: LACTULOSE 20 GM/30 ML UDCUP PO SCH (07:51)
[2020-01-26] MEDS: AZITHROMYCIN 250 MG TABLET PO SCH (07:51)
[2020-01-26 09:31] LABS: Calcium 9.8 MG/DL (8.5-10.1); Ferritin 6427.9 ng/ml (8-252); Osmolality,Calculated 258.6 MOS/KG (273-304)
[2020-01-26] MEDS: DEXTROSE 10% 250 ML BAG IV PRN (20:50)
[2020-01-26 21:46] LABS: ABG Base Excess -5.1 MMOL/L (-2.5-2.5); ABG HCO3 20.1 MMOL/L (20-26); ABG Oxygen Saturation 93.5 % (95-100); ABG PCO2 29.4 MM HG (35-48); ABG PH 7.408 (7.35-7.45); ABG PO2 76.3 MM HG (80-95); ABG TCO2 16.9 MMOL/L (23-27); Allen Test Positive; Pt O2 Delivery Device Room Air
[2020-01-26 22:05] LABS: Basophils % 0.2 % (0.0-0.8); Eosinophils % 0.2 % (0.00-10.9); Hematocrit 31.7 VOL% (35.7-47.0); Hemoglobin 9.9 GM/DL (12.0-16.0); Immature Granulocytes % 1.2 %; Immature Granulocytes Absolute 0.11 #; Lymphocytes # 0.6 10*3/uL (1.4-4.0); Mean Corpuscular HGB Conc 31.2 GM/DL (32-36); Mean Corpuscular Volume 93.5 FL (87-102); Monocytes % 6.1 % (1.7-12.7); Neutrophils % 86.3 % (38.7-73.9); Platelet Count 162 T/CUMM (130-400); Red Blood Count 3.39 MC/CUMM (3.8-5.5); Red Cell Distribution Width 23.3 % (9.3-17.3); White Blood Count 9.5 T/CUMM (4-12)
[2020-01-26 22:18] LABS: Albumin 2.6 G/DL (3.4-5.0); Calcium 9.2 MG/DL (8.5-10.1); Osmolality,Calculated 268.4 MOS/KG (273-304); Total Protein 6.5 G/DL (6.4-8.3)
[2020-01-27 00:01] LABS: Anisocytosis 1+; Ovalocytes 1+; Polychromasia 1+
[2020-01-27 00:02] LABS: Platelet Estimate Adequate
[2020-01-27] MEDS: HEPARIN 5,000 UNIT/1 ML VIAL SUBCUT SCH ×4 (01:20→22:20)
[2020-01-27] MEDS: LACTULOSE 20 GM/30 ML UDCUP PO SCH ×3 (01:46→21:49)
[2020-01-27 05:20] LABS: Basophils % 0.2 % (0.0-0.8); Eosinophils % 0.3 % (0.00-10.9); Hemoglobin 9.9 GM/DL (12.0-16.0); Immature Granulocytes Absolute 0.09 #; Lymphocytes # 0.7 10*3/uL (1.4-4.0); Lymphocytes % 7.3 % (21.3-54.2); Mean Corpuscular HGB Conc 30.9 GM/DL (32-36); Mean Corpuscular Volume 94.7 FL (87-102); Mean Platelet Volume 9.5 FL (9.6-12.0); Monocytes % 7.1 % (1.7-12.7); NRBC # 0.23 10*3/uL; Neutrophils % 84.1 % (38.7-73.9); Platelet Count 167 T/CUMM (130-400); Red Blood Count 3.38 MC/CUMM (3.8-5.5); Red Cell Distribution Width 23.8 % (9.3-17.3); White Blood Count 9.2 T/CUMM (4-12)
[2020-01-27 05:43] LABS: Hypochromasia 1+; Polychromasia Slight
[2020-01-27 05:44] LABS: Microcytosis Slight
[2020-01-27 06:16] LABS: Calcium 9.7 MG/DL (8.5-10.1); Ferritin 6215.8 ng/ml (8-252); Osmolality,Calculated 263.5 MOS/KG (273-304)
[2020-01-27] MEDS: cefTRIAXone 1,000 MG in SYRINGE 1 EACH IV SCH (09:45)
[2020-01-27] MEDS: AZITHROMYCIN 250 MG TABLET PO SCH (11:37)
[2020-01-27] MEDS ORDERED: TUBERCULIN SKIN TEST 0.1 ML SYRINGE INTRADERM ONE (15:00)
[2020-01-27] MEDS: DEXTROSE 10% 250 ML BAG IV PRN ×2 (20:35→23:25)
[2020-01-28] MEDS: DEXTROSE 10% 250 ML BAG IV PRN (05:10)
[2020-01-28 05:28] LABS: Basophils % 0.1 % (0.0-0.8); Eosinophils # 0.1 10*3/uL (0.0-0.87); Eosinophils % 0.9 % (0.00-10.9); Hematocrit 33.2 VOL% (35.7-47.0); Hemoglobin 10.3 GM/DL (12.0-16.0); Immature Granulocytes % 0.7 %; Immature Granulocytes Absolute 0.06 #; Lymphocytes # 0.6 10*3/uL (1.4-4.0); Lymphocytes % 7.7 % (21.3-54.2); Mean Corpuscular Volume 95.7 FL (87-102); Mean Platelet Volume 9.5 FL (9.6-12.0); Monocytes % 8.9 % (1.7-12.7); NRBC # 0.08 10*3/uL; Neutrophils % 81.7 % (38.7-73.9); Platelet Count 152 T/CUMM (130-400); Red Blood Count 3.47 MC/CUMM (3.8-5.5); Red Cell Distribution Width 24.4 % (9.3-17.3); White Blood Count 8.1 T/CUMM (4-12)
[2020-01-28 05:56] LABS: Calcium 9.3 MG/DL (8.5-10.1); Ferritin 4587.1 ng/ml (8-252); Osmolality,Calculated 263.8 MOS/KG (273-304)
[2020-01-28 05:57] LABS: Hypochromasia Slight; Platelet Estimate Adequate
[2020-01-28] MEDS: LACTULOSE 20 GM/30 ML UDCUP PO SCH (09:21)
[2020-01-28] MEDS: HEPARIN 5,000 UNIT/1 ML VIAL SUBCUT SCH (10:57)
[2020-01-28] MEDS ORDERED: MORPHINE 4 MG/1 ML VIAL IV PRN (11:34)
[2020-01-28] MEDS ORDERED: LORazepam 2 MG/1 ML VIAL IV PRN (11:34)
[2020-01-28 23:23] VITALS: BP 129/68
== END 2020-01-29 01:08 | disposition expired | DRG 177 ==
LOC: SUATTDRO 06:13 → N.2W 06:13
PROVIDERS: ADMIT Internal Medicine; ATTEND Hospitalist